=== PATIENT | male | born 1935 | race Hispanic/Latino ===

== ENCOUNTER 2017-07-12 10:40 | Observation (INO) | payer MEDICARE ==
[2017-07-12 10:55] VITALS: BMI 26.4
--- NOTE | 2017-07-12 11:23 | ED PDOC ---
Arrival/HPI - General Historian: Patient - History of Present Illness Symptom Onset: Gradual Symptom Course: Worsening <Eduar Ch - Last Filed: 07/12/17 11:29> <Kendra Boswell - Last Filed: 07/12/17 12:10> - General Time Seen by Provider: 07/12/17 10:59 - History of Present Illness Narrative History of Present Illness (Text): 07/12/17 11:19 This is a 80 year old male with PMHx Mitral and Aortic valve replacement, NC, CAD s/p CABG, HTN, DM, CHF, s/p AICD presenting to the ED complaining of shortness of breath since yesterday. Patient complaining that "my lungs are filling with water." Patient unable to sleep last night. Lying down and moving exacerbates the dyspnea. Sitting up relieves it. Patient complains of dry cough associated. Patient presents sent in by his PMD Dr. Evita Montilla. Patient denies f /c, chest pain, palpitations, abdominal pain, dysuria. PMD: Dr. English Cardio: Dr. Jose 07/12/17 11:29 (Eduar Ch) Past Medical History - Infectious Disease Hx of Infectious Diseases: None - Tetanus Immunization Tetanus Immunization: Unknown - Cardiac Hx Coronary Artery Disease: Yes Hx NC: Yes Hx Hypertension: Yes Hx Peripheral Vascular Disease: Yes - Pulmonary Hx Bronchitis: Yes Hx Pneumonia: Yes Hx Sleep Apnea: Yes - Neurological Hx Paralysis: No - HEENT Hx HEENT Disorder: Yes (sinusitis, eyeglasses) - Renal Hx Kidney Stones: Yes - Endocrine/Metabolic Hx Diabetes Mellitus Type 2: Yes - Hematological/Oncological Hx Blood Transfusions: Yes Hx Blood Transfusion Reaction: No - Musculoskeletal/Rheumatological Hx Arthritis: Yes - Gastrointestinal Other/Comment: GI BLEED - Psychiatric Hx Emotional Abuse: No Hx Physical Abuse: No Hx Substance Use: No - Surgical History Hx Coronary Artery Bypass Graft: Yes (QUADRUPLE) - Anesthesia Hx Anesthesia Reactions: No - Suicidal Assessment Feels Threatened In Home Enviroment: No <Eduar Ch - Last Filed: 07/12/17 11:29> Family/Social History Smoking Status: Never Smoked Hx Alcohol Use: No Hx Substance Use: No <Eduar Ch - Last Filed: 07/12/17 11:29> Family/Social History: No Known Family HX <Kendra Boswell A - Last Filed: 07/12/17 12:10> Allergies/Home Meds <DimaEduar Osman - Last Filed: 07/12/17 11:29> <Kendra Boswell - Last Filed: 07/12/17 12:10> Allergies/Adverse Reactions: Allergies No Known Allergies Allergy (Verified 04/18/16 09:59) Home Medications: Home Meds Medication Instructions Recorded Confirmed Carvedilol [Coreg] 6.25 mg PO BID 10/12/15 07/29/16 Metformin HCl 850 mg PO DAILY 10/12/15 07/29/16 Diazepam [Diazepam] 5 mg PO HS PRN 03/21/16 07/29/16 Furosemide [Lasix] 40 mg PO DAILY PRN 07/10/16 07/29/16 Iron Sucrose [Venofer] 100 mg IV Q30D 07/10/16 07/29/16 Melatonin/Pyridoxine HCl (B6) 1 each PO HS 07/10/16 07/29/16 [Melatonin 10 mg Tablet] Review of Systems - Review of Systems Eyes: Normal ENT: Sore Throat Respiratory: SOB, Cough. absent: Sputum Cardiovascular: Orthopnea Gastrointestinal: Normal Musculoskeletal: Normal Skin: Normal Neurological: Normal Endocrine: Normal Hemo/Lymphatic: Normal Psychiatric: Normal <Eduar Ch Dawson - Last Filed: 07/12/17 11:29> Physical Exam Vital Signs Reviewed: Yes Temperature: Afebrile Blood Pressure: Normal Appearance: Positive for: Uncomfortable Mental Status: Positive for: Alert and Oriented X 3 - Systems Exam Head: Present: Atraumatic, Normocephalic Pupils: Present: PERRL Extroacular Muscles: Present: EOMI Conjunctiva: Present: Normal Mouth: Present: Moist Mucous Membranes Respiratory/Chest: Present: Rales Cardiovascular: Present: Normal S1, S2, Irregular Rhythm Abdomen: Present: Distention, Normal Bowel Sounds. No: Tenderness Lower Extremity: Present: Edema (pitting bilaterally) Neurological: Present: CN II-XII Intact Skin: Present: Dry Psychiatric: Present: Alert, Oriented x 3 <Eduar Ch Dawson - Last Filed: 07/12/17 11:29> Medical Decision Making <Eduar Ch Dawson - Last Filed: 07/12/17 11:29> <Kendra Boswell - Last Filed: 07/12/17 12:10> ED Course and Treatment: 07/12/17 11:27 CBC, CMP, BNP, Troponins, CXR, Lasix 40 mg IVP stat 07/12/17 11:28 (Eduar Ch) 07/12/17 11:59 Patient seen by resident and then evaluated by me. Patient on home O2 and reports worsening shortness of breath. Denies chest pain. Physical exam shows rales b/l and b/l lower extremity edema, with worsening hypoxia. EKG shows paced rhythm at 70bpm. Cxray and bnp also consistent with chf. Trop x 1 negative. Labs consistent with known anemia that patient has previously signed out AMA before GI evaluation. Patient given lasix 80mg IV with some improvement. Will transfer to tele observation under Dr. Gamez for chf exacerbation. Spoke to Dr. Gamez who will place further orders 07/12/17 12:05 (Kendra Boswell) - Lab Interpretations Lab Results: 07/12/17 11:04 07/12/17 11:04 Lab Results 07/12/17 11:04: Sodium 141, Potassium 5.0, Chloride 92 L, Carbon Dioxide 40 H, Anion Gap 14, BUN 32 H, Creatinine 1.0, Est GFR ( Amer) > 60, Est GFR ( Non-Af Amer) > 60, Random Glucose 145 H, Calcium 9.1, Total Bilirubin 0.7, AST 29, ALT 27, Alkaline Phosphatase 270 H, Total Creatine Kinase 25 L, Troponin I 0.02, NT-Pro-B Natriuret Pep 4460 H, Total Protein 7.9, Albumin 4.1, Globulin 3.9, Albumin/Globulin Ratio 1.1 07/12/17 11:04: WBC 6.3 D, RBC 2.93 L, Hgb 8.8 L, Hct 28.7 L, MCV 98.0, MCH 30.0, MCHC 30.7 L, RDW 16.4 H, Plt Count 191, MPV 10.7, Gran % 81.8 H, Lymph % ( Auto) 9.1 L, Fallon % (Auto) 7.6 H, Eos % (Auto) 1.3 L, Baso % (Auto) 0.2, Gran # 5.19, Lymph # 0.6 L, Fallon # 0.5, Eos # 0.1, Baso # 0.01 - RAD Interpretation Radiology Orders: 07/12/17 11:12 CHEST PORTABLE [RAD] Stat - Medication Orders Current Medication Orders: Discontinued Medications Aspirin (Aspirin Chewable) 324 mg PO STAT STA Stop: 07/12/17 11:34 Last Admin: 07/12/17 12:07 Dose: 324 mg Furosemide (Lasix) 40 mg IVP STAT STA Stop: 07/12/17 11:14 Last Admin: 07/12/17 11:24 Dose: 40 mg Furosemide (Lasix) 40 mg IVP STAT STA Stop: 07/12/17 11:59 Last Admin: 07/12/17 12:07 Dose: 40 mg Disposition/Present on Arrival - Present on Arrival History of DVT/PE: No History of Uncontrolled Diabetes: No Urinary Catheter: No History Surgical Site Infection Following: None <Eduar Ch - Last Filed: 07/12/17 11:29> - Present on Arrival Any Indicators Present on Arrival: No - Disposition Have Diagnosis and Disposition been Completed?: Yes Disposition Time: 12:01 Patient Plan: Observation <Kendra Boswell - Last Filed: 07/12/17 12:10> - Disposition Diagnosis: Congestive heart failure (CHF) Disposition: HOSPITALIZED Patient Problems: Current Active Problems Problem Status Onset Congestive heart failure (CHF) Acute Condition: FAIR Discharge Instructions (ExitCare): Heart Failure (ED) Referrals: Juanito Sky, [Primary Care Provider] - Follow up with primary
[2017-07-12 11:29] LABS: BASO # 0.01 K/mm3 (0.0-2.0); BASO % 0.2 % (0.0-3.0); EOS # 0.1 (0.0-0.7); EOS % 1.3 % (1.5-5.0); GRAN # 5.19 (1.4-6.5); GRAN % 81.8 % (50.0-68.0); HEMATOCRIT 28.7 % (42.0-52.0); LYMPH # 0.6 (1.2-3.4); LYMPH % 9.1 % (22.0-35.0); MEAN CORPUSCULAR HGB CONC 30.7 g/dl (31.0-37.0); MEAN PLATELET VOLUME 10.7 fl (7.0-11.0); MONO # 0.5 (0.1-0.6); MONO % 7.6 % (1.0-6.0); RED CELL DISTRIBUTION WIDTH 16.4 % (11.5-14.5); WHITE BLOOD COUNT 6.3 10^3/ul (4.5-11.0)
[2017-07-12 11:38] LABS: ALB/GLOB RATIO 1.1 (1.1-1.8); ALKALINE PHOSPHATASE 270 U/L (38-133); ALT/SGPT 27 U/L (7-56); AST/SGOT 29 U/L (15-59); BILIRUBIN,TOTAL 0.7 mg/dL (0.2-1.3); BLOOD UREA NITROGEN 32 mg/dL (7-21); CALCIUM 9.1 mg/dL (8.4-10.5); CARBON DIOXIDE 40 mmol/L (21-33); CHLORIDE 92 mmol/L (98-107); GFR AFRICAN-AMERICAN > 60; GLUCOSE,RANDOM 145 mg/dL (70-110); SODIUM 141 mmol/L (132-148); TOTAL PROTEIN 7.9 g/dL (5.8-8.3)
[2017-07-12 11:50] LABS: TROPONIN I 0.02 ng/mL
[2017-07-12] MEDS ORDERED: Albuterol-Ipratrop 3 mg / 0.5 (3 ml) UD IH PRN (12:09)
--- NOTE | 2017-07-12 12:23 | RAD ---
HISTORY: shortness of breath COMPARISON: 05/16/2016 FINDINGS: LUNGS: There is vascular congestion and bilateral infiltrates consistent with CHF. Findings are unchanged PLEURA: No significant pleural effusion identified, no pneumothorax apparent. CARDIOVASCULAR: Moderate cardiomegaly OSSEOUS STRUCTURES: No significant abnormalities. VISUALIZED UPPER ABDOMEN: Normal. OTHER FINDINGS: Pacemaker IMPRESSION: Moderate cardiomegaly. Vascular congestion and bilateral infiltrates consistent with CHF
--- NOTE | 2017-07-12 12:54 | CARD ---
APPROVED REPORT EKG Measurement Heart [id number] <Conclusion> Electronic ventricular pacemaker
[2017-07-12 12:55] VITALS: O2SAT 95
[2017-07-12] MEDS ORDERED: POLYETHYLENE GLYCOL 3350 17 GM/Dose PACKET PO ONE (15:28)
[2017-07-12 17:01] VITALS: PULSE 70
[2017-07-12] MEDS ORDERED: Pneumococcal 23-Valent Vaccine IM ONE (17:01)
[2017-07-12] MEDS ORDERED: metOLazone 5 MG TAB PO STA (17:32)
[2017-07-12 18:52] VITALS: RESP 19
--- NOTE | 2017-07-12 23:39 | CP.PCM.PN ---
Subjective - Date & Time of Evaluation Date of Evaluation: 07/12/17 Time of Evaluation: 23:36 - Subjective Subjective: Patient was seen at bedside. He wanted to sign out AMA. He said that he [place] [facility] physician sent him to [place], so he is very upset. Then , he said his lungs are filled with water and wants something for that and wants something for sleep. He received 80 mg of Lasix in the ER and 40 mg of Lasix on the floor. Patient has no other complaints. I spoke to his who tried to convince him on phone. Medical record was reviewed. This 81 year old white male was admitted with sob on exertion of several days duration/CHF. Has PMH of DM II,CHF, HTN, CAD, S/P CABG, ischemic CMP, iron deficiency anemia, S/P ME, S/P AICD, S/P AVR, S/P MVR, Objective - Vital Signs/Intake and Output Vital Signs (last 24 hours): Temp Pulse Resp BP Pulse Ox 99.4 F 70 19 112/55 L 95 07/12/17 18:00 07/12/17 22:00 07/12/17 18:00 07/12/17 21:10 07/12/17 12:40 - Medications Medications: Current Medications Albuterol/Ipratropium (Duoneb 3 Mg/0.5 Mg (3 Ml) Ud) 3 ml IH Q4H PRN PRN Reason: Shortness of Breath Aspirin (Aspirin Chewable) 81 mg PO DAILY [facility] Atorvastatin Calcium (Lipitor) 20 mg PO DIN [facility] Carvedilol (Coreg) 6.25 mg PO BID [facility] Last Admin: 07/12/17 18:26 Dose: 6.25 mg Diazepam (Valium) 5 mg PO HS [facility] PRN Reason: Protocol Last Admin: 07/12/17 22:04 Dose: 5 mg Furosemide (Lasix) 40 mg IVP Q12 [facility] Last Admin: 07/12/17 21:10 Dose: 40 mg Metformin HCl (Glucophage) 500 mg PO BID [facility] Last Admin: 07/12/17 18:26 Dose: 500 mg - Labs Labs: Laboratory Last Values WBC 7.5 10^3/ul (4.5-11.0) 07/13/17 06:30 RBC 2.87 10^6/uL (3.5-6.1) L 07/13/17 06:30 Hgb 8.4 g/dL (14.0-18.0) L 07/13/17 06:30 Hct 27.7 % (42.0-52.0) L 07/13/17 06:30 MCV 96.5 fl (80.0-105.0) 07/13/17 06:30 MCH 29.3 pg (25.0-35.0) 07/13/17 06:30 MCHC 30.3 g/dl (31.0-37.0) L 07/13/17 06:30 RDW 16.6 % (11.5-14.5) H 07/13/17 06:30 Plt Count 143 10^3/uL (120.0-450.0) 07/13/17 06:30 MPV 9.7 fl (7.0-11.0) 07/13/17 06:30 Gran % 84.8 % (50.0-68.0) H 07/13/17 06:30 Lymph % (Auto) 7.4 % (22.0-35.0) L 07/13/17 06:30 Todd % (Auto) 7.4 % (1.0-6.0) H 07/13/17 06:30 Eos % (Auto) 0.3 % (1.5-5.0) L 07/13/17 06:30 Baso % (Auto) 0.1 % (0.0-3.0) 07/13/17 06:30 Gran # 6.32 (1.4-6.5) 07/13/17 06:30 Lymph # 0.6 (1.2-3.4) L 07/13/17 06:30 Todd # 0.6 (0.1-0.6) 07/13/17 06:30 Eos # 0.0 (0.0-0.7) 07/13/17 06:30 Baso # 0.01 K/mm3 (0.0-2.0) 07/13/17 06:30 Sodium 141 mmol/L (132-148) 07/13/17 06:30 Potassium 4.2 mmol/L (3.6-5.0) 07/13/17 06:30 Chloride 88 mmol/L (98-107) L 07/13/17 06:30 Carbon Dioxide 43 mmol/L (21-33) H 07/13/17 06:30 Anion Gap 14 (10-20) 07/13/17 06:30 BUN 33 mg/dL (7-21) H 07/13/17 06:30 Creatinine 1.0 mg/dL (0.5-1.4) 07/13/17 06:30 Est GFR ( Amer) > 60 07/13/17 06:30 Est GFR (Non-Af Amer) > 60 07/13/17 06:30 POC Glucose (mg/dL) 154 mg/dL (65-110) H 07/13/17 07:46 Random Glucose 141 mg/dL (70-110) H 07/13/17 06:30 Calcium 8.8 mg/dL (8.4-10.5) 07/13/17 06:30 Total Bilirubin 1.0 mg/dL (0.2-1.3) 07/13/17 06:30 AST 33 U/L (15-59) 07/13/17 06:30 ALT 26 U/L (7-56) 07/13/17 06:30 Alkaline Phosphatase 239 U/L (38-133) H 07/13/17 06:30 Total Creatine Kinase 25 U/L (35-230) L 07/12/17 11:04 Troponin I 0.04 ng/mL D 07/13/17 06:30 NT-Pro-B Natriuret Pep 4460 pg/mL (0-450) H 07/12/17 11:04 Total Protein 7.4 g/dL (5.8-8.3) 07/13/17 06:30 Albumin 3.7 g/dL (3.0-4.8) 07/13/17 06:30 Globulin 3.8 gm/dL 07/13/17 06:30 Albumin/Globulin Ratio 1.0 (1.1-1.8) L 07/13/17 06:30 Triglycerides 92 mg/dL (35-160) 07/13/17 06:30 Cholesterol 99 mg/dL (130-200) L 07/13/17 06:30 LDL Cholesterol Direct < 30 mg/dL (0-129) 07/13/17 06:30 HDL Cholesterol 32 mg/dL (29-60) 07/13/17 06:30 TSH 3rd Generation 1.53 mIU/mL (0.46-4.68) 07/13/17 06:30 - Constitutional Appears: Well, No Acute Distress - Head Exam Head Exam: ATRAUMATIC, NORMAL INSPECTION, NORMOCEPHALIC - Eye Exam Eye Exam: Normal appearance - ENT Exam ENT Exam: Normal External Ear Exam - Neck Exam Neck Exam: Normal Inspection - Respiratory Exam Respiratory Exam: Rales (Ocassional bilateral.) - Cardiovascular Exam Cardiovascular Exam: absent: JVD - GI/Abdominal Exam GI & Abdominal Exam: absent: Distended - Rectal Exam Rectal Exam: Deferred - Exam Additional comments: Deferred. - Extremities Exam Extremities Exam: Normal Inspection - Back Exam Back Exam: NORMAL INSPECTION - Neurological Exam Neurological Exam: Alert, Oriented x3 - Psychiatric Exam Psychiatric exam: Normal Affect, Normal Mood - Skin Skin Exam: Normal Color Assessment and Plan - Assessment and Plan (Free Text) Assessment: Non complaint. CHF. HTN. CMP. Hx ME. CAD. DM II. S/P AICD. S/P AVR. S/P MVR. S/P CABG. Iron deficiency anemia. Plan: Patient agreed to stay. Lasix 20 mg. IV stat. Xanax 0.5 mg PO stat. Continue present management.
[2017-07-13 00:53] VITALS: TEMP 99.6
[2017-07-13] MEDS ORDERED: DiphenhydrAMINE 12.5 mg/5 ml LIQ UD (5 ml) PO STA (01:14)
--- NOTE | 2017-07-13 05:01 | CON ---
DATE: 07/12/2017 LOCATION: Patient in room 276, bed 2. REASON FOR CONSULTATION: Shortness of breath, history of coronary artery disease, history of valve replacement. HISTORY OF PRESENT ILLNESS: Patient is an 81-year-old male known case of coronary artery disease status post CABG also known to have aortic valve replacement, tissue valve, pericardial valve, and ring placement on the mitral valve and also found to have ischemic cardiomyopathy, for which he has AICD insertion, history of diabetes mellitus, hypertension, sleep apnea, admitted with seizures since last 2 to 3 days, he is having shortness of breath, which got worse and last night he could not sleep at all, he has to be upright all night and also he noticed his legs were swollen. Denies any chest pain or palpitation. PAST MEDICAL HISTORY: Positive for coronary artery disease, CABG, valve surgery as mentioned above, AICD insertion, arthritis, sleep apnea, anemia and hydrocele surgery. PREVIOUS CARDIAC WORKUP; Stress Test : Fixed Defect LV Ej.Fr: 51%. ECHO: : Normal LV Size. LV Systolic Functiob Decreased. EF 51%. Mod AI, Mod TR. RVSP:114mm Hg Suggest Severe Pulmonary Hypertension. Normal Size RV. Septal morion Paradoxical.Cannot see RV Systolic Function. FAMILY HISTORY: Father at age 51 due to colon cancer, diabetes mellitus and hypertension. Family history positive. Patient follows with gastroenterology Dr. Horowitz. PERSONAL HISTORY: He used to smoke cigars, stopped now. Denies drinking. ALLERGIES: NO KNOWN ALLERGIES. MEDICATIONS AT HOME: Included metformin 850 p.o. daily, Venofer 100 mg IV once a month, Lasix 40 mg p.o. once a day p.r.n., diazepam 5 mg p.o. at bedtime p.r.n., Coreg 6.25 b.i.d. and lisinopril 10 m daily. REVIEW OF SYSTEMS: All the systems reviewed, positive mentioned in history and others are negative. PHYSICAL EXAMINATION: VITAL SIGNS: Blood pressure 116/61, respirations 20, pulse 70, and temperature 97.8. HEENT: Head is normocephalic. Eyes: Pupils normal and conjunctivae pale. NECK: JVP elevated. LUNGS: Bilateral rales. CARDIOVASCULAR: S1 and S2. Systolic murmur. No rub. ABDOMEN: Soft. No tenderness. No organomegaly. EXTREMITIES: 3+ edema bilateral. LABORATORY DATA: WBC 6.3, hemoglobin 8.8, hematocrit 28.7, and platelet 191. Sodium 141, potassium 5.0, BUN 32, creatinine 1.0. Random sugar 179, another sugar level is 145, alkaline phosphatase 270, AST and ALT normal. Troponin 0.02, which is negative. NT-pro-B natriuretic peptide 4460. Total protein and albumin normal. EKG showed pacemaker rhythm. Chest x-ray showed cardiomegaly, congestive changes. DIAGNOSES: Ischemic cardiomyopathy, congestive heart failure, acute on chronic left ventricular systolic failure, coronary artery disease status post coronary artery bypass graft, status post tissue valve replacement, aortic valve, pericardial valve, history of placement of rings on mitral valve, hypertension, diabetes mellitus, arthritis, sleep apnea and anemia. PLAN: Patient on Lasix 40 mg IV b.i.d. We will also give one dose of Zaroxolyn 5 mg p.o. today, aspirin 81 mg daily, carvedilol 6.25 b.i.d., metformin 500 mg .b.i.d., Valium 5 mg p.o. p.r.n. at bedtime. We will also add lisinopril 2.5 mg p.o. daily. We will monitor intake and output and we will follow with you. Tara Jose MD MTDBerny
[2017-07-13 07:26] LABS: BASO # 0.01 K/mm3 (0.0-2.0); BASO % 0.1 % (0.0-3.0); EOS % 0.3 % (1.5-5.0); GRAN # 6.32 (1.4-6.5); GRAN % 84.8 % (50.0-68.0); HEMATOCRIT 27.7 % (42.0-52.0); LYMPH # 0.6 (1.2-3.4); LYMPH % 7.4 % (22.0-35.0); MEAN CELL VOLUME 96.5 fl (80.0-105.0); MEAN CORPUSCULAR HEMOGLOBIN 29.3 pg (25.0-35.0); MEAN CORPUSCULAR HGB CONC 30.3 g/dl (31.0-37.0); MEAN PLATELET VOLUME 9.7 fl (7.0-11.0); MONO # 0.6 (0.1-0.6); MONO % 7.4 % (1.0-6.0); RED CELL DISTRIBUTION WIDTH 16.6 % (11.5-14.5); WHITE BLOOD COUNT 7.5 10^3/ul (4.5-11.0)
[2017-07-13 07:39] LABS: ALKALINE PHOSPHATASE 239 U/L (38-133); ALT/SGPT 26 U/L (7-56); AST/SGOT 33 U/L (15-59); BLOOD UREA NITROGEN 33 mg/dL (7-21); CALCIUM 8.8 mg/dL (8.4-10.5); CHLORIDE 88 mmol/L (98-107); CHOLESTEROL 99 mg/dL (130-200); GFR AFRICAN-AMERICAN > 60; GLUCOSE,RANDOM 141 mg/dL (70-110); POTASSIUM 4.2 mmol/L (3.6-5.0); SODIUM 141 mmol/L (132-148); TOTAL PROTEIN 7.4 g/dL (5.8-8.3)
[2017-07-13 07:46] LABS: CARBON DIOXIDE 43 mmol/L (21-33)
[2017-07-13 07:49] LABS: TROPONIN I 0.04 ng/mL
--- NOTE | 2017-07-13 08:51 | HP ---
HISTORY OF PRESENT ILLNESS: The patient is an 81-year-old man with past medical history of CAD s/p CABG x 2, ischemic cardiomyopathy s/p IL s/p AICD, history of MVR and AVR, hypertension, type 2 diabetes mellitus and iron deficiency anemia on monthly intravenous iron infusions who presented to [facility] Emergency Department from his PMD's office for evaluation of a several day history of worsening dyspnea with exertion, orthopnea, lower extremity edema and cough productive of scant, clear sputum. The patient states that he was in his usual state of health until his onset symptoms several days ago which initially manifested as dyspnea with exertion. Over the course of the next several days his symptoms progressed to consist of dyspnea at rest, 3-pillow orthopnea and lower extremity edema. He denied chest pain, palpitations, fevers, chills, rigors, melena, hematochezia or bright red blood per rectum associated with his symptoms. Upon examination at his PMD's office he was noted to be tachypneic and in moderate respiratory distress utilizing accessory muscles of respiration. Examination also disclosed diffuse rhonchi and bibasilar crackles and as such the patient was advised to go to [facility] ED for further evaluation. Upon arrival to the ED he was noted to be afebrile and hemodynamically stable but was tachypneic with a respiratory rate of 24 and hypoxic with an oxygen saturation of 89% on 3 L nasal cannula. Laboratory studies which were obtained demonstrated a hemoglobin of 8.8 (baseline 8-9) and a markedly elevated BNP of 4460. A chest x -ray demonstrated bilateral pulmonary venous congestion in a CHF pattern. The patient received Lasix 80 mg intravenously and was admitted to the telemetry gonzales for continued management of acute on chronic systolic heart failure exacerbation. PAST MEDICAL HISTORY: As per HPI, also obstructive sleep apnea. PAST SURGICAL HISTORY: As per HPI. FAMILY HISTORY: Significant for hypertension, diabetes and colon caner in his father. MEDICATIONS: Coreg 6.25 mg p.o. b.i.d., Lisinopril 10 mg p.o. daily, Lasix 40 mg p.o. b.i.d., Aldactone 25 mg p.o. daily, Lipitor 20 p.o. daily, Pepcid 20 mg p.o. b.i.d., Metformin 500 mg p.o. b.i.d., Valium 5 mg p.o. at bedtime and Venofer infusions monthly ALLERGIES: NKDA. SOCIAL HISTORY: The patient reports a former 30-pack year tobacco history but quit several years ago. He reports social alcohol use. He denies illicit drug abuse. REVIEW OF SYSTEMS: A 14-point review of systems is negative as per HPI. PHYSICAL EXAMINATION: VITAL SIGNS: Temperature 99.4, pulse 70, blood pressure 145/62, respiratory rate 20, and oxygen saturation 92% on 3 L nasal cannula. GENERAL: Frail, elderly man appearing stated age in moderate respiratory distress. HEENT: PERRL. EOMI. No scleral icterus. Conjunctival pallor is noted. NECK: No JVD. No bruits. LUNGS: Bibasilar crackles with scattered rhonchi and accessory muscle use is noted. CARDIOVASCULAR: RRR, Grade II/ systolic ejection murmur to RUSB, Grade II/ murmur to LLSB, AICD to left anterior chest wall. ABDOMEN: Normoactive bowel sounds. Soft, nontender, and nondistended. EXTREMITIES: 2+ lower extremity edema bilaterally to knees NEUROLOGIC: Awake, alert and oriented x3. No focal motor deficits. LABORATORY DATA: WBC is 6.3 with 82% neutrophils, hemoglobin is 8.8, hematocrit 29, and platelets 191. Sodium 141, potassium 5, chloride 92, bicarbonate 40, BUN 32, creatinine 1, and glucose 145. Troponin less than 0.02. BNP 4460. IMAGING STUDIES: Chest x-ray demonstrated moderate cardiomegaly with vascular congestion and bilateral infiltrates consistent with CHF. ASSESSMENT: The patient is an 81-year-old man with multiple medical comorbidities including CAD s/p CABG x 2, ischemic cardiomyopathy s/p AICD, history of AVR, MVR, hypertension, NIDDM, and iron deficiency anemia on monthly iron infusions who presented to the ED from his PMD's office for evaluation of increasing fatigability, decreased exercise tolerance, dyspnea and 3-pillow orthopnea and subsequently admitted to the telemetry gonzales for continued management of acute on chronic systolic heart failure exacerbation. PLAN: 1. Acute on chronic systolic heart failure exacerbation. The patient is s/p Lasix 80mg IV x 1 in the ED. We will continue Lasix 40mg IV Q12. Dr. Jose of cardiology has been consulted for further evaluation and recommendations. Will cycle cardiac enzymes, check TSH, monitor strict I/Os and daily weights. We will defer pursuit of repeat TTE to the cardiology team. 2. Ischemic cardiomyopathy s/p AICD. Continue with Coreg 6.25 mg p.o. b.i.d and Lisinopril 2.5 mg p.o. daily 3. CAD s/p IL s/p PCI with multiple stent placement s/p CABG x 2. Continue with Coreg 6.25 mg p.o. b.i.d., aspirin 81 mg p.o. daily and Lipitor 20 mg p.o. daily. 4. Non-insulin dependent diabetes mellitus. Continue with metformin 500 mg p.o. b.i.d. 5. Hypertension. Blood pressure stable. Continue with current antihypertensives. 6. Iron deficiency anemia. The patient remains on monthly IV iron and labs demonstrate hemoglobin at the patient's baseline. Continue to monitor CBC daily. 7. Insomnia. Continue with Valium 5 mg p.o. at bedtime. 8. Prophylaxis. GI prophylaxis, not indicated the patient is eating. Continue with Venodyne for DVT prophylaxis. CODE STATUS: FULL CODE. Ronnie Gamez MD MTDD
[2017-07-13 10:23] VITALS: BP 116/55
--- NOTE | 2017-07-13 10:23 | PN ---
DATE: SUBJECTIVE: The patient was seen and examined at bedside on the telemetry gonzales. No acute events overnight. He remains afebrile and hemodynamically stable. The patient reports significant diuresis since admission and administration of intravenous Lasix. The patient also reports resolution of his respiratory distress and states that he feels at his baseline respiratory status. Otherwise, he continues to deny chest pain, fevers, chills or rigors. OBJECTIVE: VITAL SIGNS: Temperature 99.6, pulse 70, blood pressure 124/59, respiratory rate 19, and oxygen saturation 95% on room air. GENERAL: Frail elderly man appearing his stated age, lying in bed, in no apparent distress. HEENT: PERRL. EOMI. No scleral icterus. Mild conjunctival pallor is noted. NECK: No JVD. LUNGS: Bibasilar crackles. CARDIOVASCULAR: Regular rate and rhythm. Grade II/ systolic ejection murmur to right upper sternal border. Grade II/ murmur to left lower sternal border. AICD in place to left anterior chest wall. ABDOMEN: Normoactive bowel sounds, soft, nontender, and nondistended. EXTREMITIES: Trace lower extremity edema bilaterally to mid dowd. NEUROLOGIC: Awake, alert, and oriented x3. No focal motor deficits. LABORATORY DATA: WBC 7.5 with 85% neutrophils, hemoglobin 8.4, hematocrit 28 and platelets 143. Sodium 141, potassium 4.2, chloride 88, and bicarb 43. BUN 33, creatinine 1, and glucose 141. Troponin unremarkable x2 sets. 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 PLAN: 1. Pxwnc-xr-qzpboys systolic heart failure exacerbation, resolving, input from Dr. Jose noted and greatly appreciated. The patient is diuresed significantly since admission and this morning, he reports being at his baseline. Continue with Lasix 40 mg IV q. 12 hours. Continue supplemental oxygen of bronchodilators as needed. 2. Ischemic cardiomyopathy status post AICD. Continue with Coreg 6.25 mg p.o. b.i.d. and lisinopril 2.5 mg p.o. daily and Lasix 40 mg IV q. 12 hours. 3. CAD, status post IL, status post CABG. Continue with Lipitor 20 mg p.o. daily and aspirin 81 mg p.o. daily. 4. Quq-dpzekzo-pgkhuscak diabetes mellitus. Continue with metformin 500 mg p.o. b.i.d. 5. Hypertension. Blood pressure control. Continue with current antihypertensives. 6. Insomnia. Continue with valium 5 mg p.o. at bedtime. 7. Iron deficiency anemia. Lab demonstrates stable H and H at patient's baseline. The patient will resume monthly Venofer infusions upon discharge. 8. Prophylaxis. Continue with Protonix and Venodyne. CODE STATUS: FULL CODE. Ronnie Gamez MD
[2017-07-13] MEDS ORDERED: Enoxaparin 40 mg Syringe SC SCH (11:00)
--- NOTE | 2017-07-13 13:59 | PN ---
DATE: REASON FOR CONSULTATION: Cardiac evaluation, shortness of breath, history of valve replacement, history of CABG. SUBJECTIVE: The patient denies any chest pain. Lying flat in the bed. The patient feels okay. OBJECTIVE: GENERAL: Not in apparent distress. Lying flat in the bed. VITAL SIGNS: Temperature is afebrile, heart rate 70, blood pressure 116/55. HEENT: PERRLA intact. NECK: Supple. No carotid bruit. No thyromegaly. CHEST: Clear to auscultation. HEART: S1 and S2 regular. ABDOMEN: Soft. EXTREMITIES: Clubbing and cyanosis negative. LABORATORY DATA: WBC 7.5, hemoglobin 8.5, hematocrit 27.7, platelet count 173. Chemistry shows sodium 141, potassium 4.1, chloride 88, carbon dioxide 43, anion gap of 14, BUN 33, creatinine 1.0. Troponin 0.04. IMPRESSION: An 81-year-old male with past medical history significant for coronary artery disease status post coronary artery bypass graft with valve replaced, history of ischemic cardiomyopathy, status post automatic implantable cardioverter defibrillator, sleep apnea, obesity, history of anemia. Admitted with decompensated congestive heart failure, history of automatic implantable cardioverter defibrillator in the past, history of diabetes, hypertension. RECOMMENDATION: Continue IV Lasix. Zaroxolyn added yesterday by Dr. Jose. The patient having diuresis. Continue Coreg, continue lisinopril. Monitor renal function. Monitor electrolytes. Continue Coreg. Continue atorvastatin and we will add low dose lisinopril as blood pressure already monitored, renal function. If remain stable, discharge to telemetry tomorrow. We will add DVT prophylaxis. We will repeat blood work up in the morning. Tara Leach MD
[2017-07-13] MEDS ORDERED: MELATONIN PO SCH (22:00)
[2017-07-13] MEDS ORDERED: [UNRECOGNIZED DRUG - OTHER] PO SCH (22:00)
[2017-07-13] MEDS ORDERED: PYRIDOXINE HCL PO SCH (22:00)
--- NOTE | 2017-07-21 12:45 | DS ---
ADMITTING DIAGNOSIS: Acute on chronic systolic heart failure exacerbation. DISCHARGE DIAGNOSIS: Acute on chronic systolic heart failure exacerbation. SECONDARY DIAGNOSES: Ischemic cardiomyopathy, status post automatic implantable cardioverter-defibrillator, coronary artery disease, status post myocardial infarction, status post percutaneous coronary intervention with multiple stent placement, status post coronary artery bypass graft x2, noninsulin dependent diabetes mellitus, hypertension, iron deficiency anemia, insomnia, chronic obstructive pulmonary disease, history of mitral valve replacement, and history of aortic valve replacement. CONSULTATIONS: Tara Jose MD (Cardiology) IMAGINING STUDY: Chest x-ray, which demonstrated pulmonary venous congestion in a CHF pattern. HISTORY OF PRESENT ILLNESS: The patient is an 81-year-old male with the past medical history of CAD, status post CABG x2, ischemic cardiomyopathy, status post MN, status post AICD, history of MVR and AVR, hypertension, type 2 diabetes mellitus, and iron deficiency anemia on monthly intervenous iron infusions, who presented to [facility] emergency department from his PMD's office for evaluation of several day history of worsening dyspnea with exertion, orthopnea, lower extremity edema, and cough productive of scant clear sputum. The patient states that he was in his usual states of health until onset of his symptoms several days ago, which initial manifested his dyspnea with exertion, over the course of next couple of days, his symptoms progressed to consistent with dyspnea at rest, 3-pillow orthopnea, and lower extremity edema. He denied chest pain, palpitations, fevers, chills, rigors, melena, hematochezia, or bright red blood per rectum associated with the symptoms. Upon examination in his PMD's office, he was noted to be tachypneic and in moderate respiratory distress utilizing accessory muscle of respiration. Examination also disclosed diffuse rhonchi with bibasilar crackles and the patient was advised to go to the emergency department for further management of presumed heart failure exacerbation. Upon arrival to the ED, he was noted to be afebrile and hemodynamically stable, post-tachypneic with a respiratory rate of 24 and hypoxic with the oxygenation of 89% on 3 L nasal cannula. LABORATORY DATA: Obtained demonstrated hemoglobin of 8.8 (baseline 8 to 9) and markedly elevated BNP of 4416. A chest x-ray demonstrated bilateral pulmonary venous congestion in a CHF pattern. The patient received Lasix 80 mg intravenously and was admitted to the telemetry gonzales for continued management of acute on chronic systolic heart failure exacerbation. HOSPITAL COURSE: Upon admission to the telemetry gonzales, the patient was maintained on Lasix 40 mg IV q.[address] Jose of Cardiology was consulted for further evaluation and recommendation. Cardiac enzymes were cyclized by 3 sets, which were negative. With the following 24 hours, the patient was noted to diurese satisfactorily and returned to his baseline functional status. He was able to ambulate around the telemetry gonzales with minimal dyspnea and at this point in time, he was deemed stable for discharge to home. CONDITION: Fair, improved. DISPOSITION: To home. DISCHARGE MEDICATIONS: Coreg 6.25 mg p.o. b.i.d., lisinopril 10 mg p.o. daily, Lasix 40 mg p.o. b.i.d., Aldactone 25 mg p.o. daily, Lipitor 20 mg daily, Pepcid 20 mg p.o. b.i.d., metformin 500 mg p.o. b.i.d., valium 5 mg p.o. at bedtime, and Venofer infusions monthly. DISCHARGE INSTRUCTIONS: The patient was advised to if he has any recurrence of his symptoms to present to his PMD or to the nearest emergency department immediately. FOLLOWUP: The patient to follow up with his PMD within 1 week of discharge. The patient to follow up with his clinical trial head as scheduled. The patient to follow up with his dry cleaning manager and oncologist as scheduled. Ronnie Gamez MD
== END 2017-07-13 11:27 | disposition home or self-care (01) ==
LOC: ED 10:40 → ERH 12:01 → 2RSO 13:18
PROVIDERS: ADMIT Student in an Organized Health Care Education/Training Program; ATTEND Student in an Organized Health Care Education/Training Program
DX: I11.0 Hypertensive heart disease with heart failure (principal); I50.23 Acute on chronic systolic (congestive) heart failure; I25.5 Ischemic cardiomyopathy; I25.10 Atherosclerotic heart disease of native coronary artery without angina pectoris; E11.9 Type 2 diabetes mellitus without complications; G47.33 Obstructive sleep apnea (adult) (pediatric); M19.90 Unspecified osteoarthritis, unspecified site; D50.9 Iron deficiency anemia, unspecified; G47.00 Insomnia, unspecified; I25.2 Old myocardial infarction; Z79.84 Long term (current) use of oral hypoglycemic drugs; Z95.2 Presence of prosthetic heart valve; Z95.1 Presence of aortocoronary bypass graft; Z95.5 Presence of coronary angioplasty implant and graft; Z87.891 Personal history of nicotine dependence; Z95.810 Presence of automatic (implantable) cardiac defibrillator
CPT/HCPCS: 36415; 71010; 80053; 80061; 82550; 82948; 83880; 84443; 84484; 85025; 93005; 96374; 96376; 99285; G0378; J1940

== ENCOUNTER 2017-08-04 22:23 | Inpatient (IN) | payer MEDICARE ==
--- NOTE | 2017-08-04 22:43 | ED PDOC ---
Arrival/HPI - General Chief Complaint: Abdominal Pain Time Seen by Provider: 08/04/17 22:29 Historian: Patient, Family - History of Present Illness Narrative History of Present Illness (Text): 08/04/17 22:43 Alex Rutledge is an 81 year old male, whose past medical history includes CAD s /p CABG, CHF, [place], AICD, MVR, AVR, hypertension, Type 2 diabetes, anemia, and GI bleed, who presents to the ED complaining of generalized weakness. Family reports patient has been experiencing generalized weakness, dizziness, and dyspnea on exertion throughout the day. Patient also complaining of worsening bilateral lower extremity swelling. Patient states he "doesn't feel like himself." Patient denies any chest pain, abdominal pain, nausea, vomiting, diarrhea, back pain, neck pain, headache, dizziness, or any other complaints. PMD: Dr. Kate Gamez Time/Duration: Other (today) Symptom Onset: Gradual Symptom Course: Unchanged Activities at Onset: Light Context: Home Past Medical History - Provider Review Nursing Documentation Reviewed: Yes - Infectious Disease Hx of Infectious Diseases: None - Tetanus Immunization Tetanus Immunization: Unknown - Cardiac Hx Cardiac Disorders: (mi) Hx Congestive Heart Failure: Yes Hx Hypertension: Yes Hx Internal Defibrillator: Yes (2011) Hx Pacemaker: Yes (2011) Hx Peripheral Edema: Yes (+2 pitting bld) Hx Peripheral Vascular Disease: Yes Other/Comment: mitral valve repair, quadruple bypass at [facility] - Pulmonary Hx Bronchitis: Yes Hx Pneumonia: Yes Hx Sleep Apnea: Yes (cpap at home) - Neurological Hx Neurological Disorder: No - HEENT Hx HEENT Disorder: Yes (sinusitis, eyeglasses) - Renal Hx Kidney Stones: Yes - Endocrine/Metabolic Hx Diabetes Mellitus Type 2: Yes - Hematological/Oncological Hx Anemia: Yes (iron deficiency, tx by dr clemens) Other/Comment: venofer iv, pt denies blood transfusions - Integumentary Other/Comment: b/l arms skin discolorations - Musculoskeletal/Rheumatological Hx Falls: No - Gastrointestinal Other/Comment: GI BLEED - Psychiatric Hx Emotional Abuse: No Hx Physical Abuse: No Hx Substance Use: No - Surgical History Hx Coronary Artery Bypass Graft: Yes (QUADRUPLE) - Anesthesia Hx Anesthesia Reactions: No - Suicidal Assessment Feels Threatened In Home Enviroment: No Family/Social History - Physician Review Nursing Documentation Reviewed: Yes Family/Social History: Unknown Family HX Smoking Status: cigars Hx Alcohol Use: No Hx Substance Use: No Allergies/Home Meds Allergies/Adverse Reactions: Allergies No Known Allergies Allergy (Verified 04/18/16 09:59) Home Medications: Home Meds Medication Instructions Recorded Confirmed Carvedilol [Coreg] 6.25 mg PO BID 10/12/15 08/04/17 Metformin HCl 850 mg PO DAILY 10/12/15 08/04/17 Diazepam [Diazepam] 5 mg PO HS PRN 03/21/16 08/04/17 Furosemide [Lasix] 40 mg PO DAILY PRN 07/10/16 08/04/17 Iron Sucrose [Venofer] 100 mg IV Q30D 07/10/16 08/04/17 Melatonin/Pyridoxine HCl (B6) 1 each PO HS 07/10/16 08/04/17 [Melatonin 10 mg Tablet] metOLazone [Zaroxolyn] 2.5 mg PO DAILY 08/04/17 08/04/17 Review of Systems - Physician Review All systems were reviewed & negative as marked: Yes - Review of Systems Constitutional: Other (+generalized weakness) Eyes: Normal ENT: Normal Cardiovascular: ANAYA. absent: Chest Pain Gastrointestinal: Normal. absent: Abdominal Pain, Diarrhea, Nausea, Vomiting Genitourinary Male: Normal. absent: Dysuria, Frequency, Hematuria, Urinary Output Changes Musculoskeletal: Other (+bilateral lower extremity swelling). absent: Back Pain , Neck Pain Skin: Normal. absent: Rash Neurological: Normal. absent: Headache, Dizziness Endocrine: Normal Hemo/Lymphatic: Normal Psychiatric: Normal Physical Exam Vital Signs Reviewed: Yes Vital Signs Temp Pulse Resp BP Pulse Ox 08/05/17 05:44 70 18 99/42 L 99 08/05/17 04:45 72 16 94/46 L 99 08/05/17 03:50 76 119/89 08/05/17 02:25 98.2 F 70 18 104/62 92 L 08/05/17 02:22 70 18 104/62 94 L 08/05/17 01:50 70 18 95/48 L 94 L 08/05/17 01:40 73 22 108/40 L 92 L 08/05/17 01:39 110/70 08/04/17 22:27 98.1 F 70 22 104/56 L 73 L 08/04/17 22:25 80 22 104/55 L 88 L Temperature: Afebrile Blood Pressure: Normal Pulse: Regular Respiratory Rate: Normal Appearance: Positive for: Well-Appearing, Non-Toxic, Comfortable Pain Distress: None Mental Status: Positive for: Alert and Oriented X 3 - Systems Exam Head: Present: Atraumatic, Normocephalic Pupils: Present: PERRL Extroacular Muscles: Present: EOMI Conjunctiva: Present: Normal Mouth: Present: Moist Mucous Membranes Neck: Present: Normal Range of Motion Respiratory/Chest: Present: Rhonchi (Few scattered rhonchi). No: Respiratory Distress, Accessory Muscle Use Cardiovascular: Present: Regular Rate and Rhythm, Normal S1, S2. No: Murmurs Abdomen: Present: Normal Bowel Sounds. No: Tenderness, Distention, Peritoneal Signs Back: Present: Normal Inspection Upper Extremity: Present: Normal Inspection. No: Cyanosis, Edema Lower Extremity: Present: Edema (1+ pedal edema) Neurological: Present: GCS=15, CN II-XII Intact, Speech Normal Skin: Present: Warm, Dry, Normal Color. No: Rashes Psychiatric: Present: Alert, Oriented x 3, Normal Insight, Normal Concentration Medical Decision Making ED Course and Treatment: 08/04/17 22:43 Impression: 81 year old male c/o generalized weakness, dizziness, dyspnea on exertion, and worsening bilateral lower extremity swelling today. Plan: -- EKG -- CXR -- Labs, cardiac enzymes, BNP -- Reassess and disposition Progress Notes: reviewed EKG, 100% paced rhythm at 70 bpm. 08/04/17 22:33 Labs reviewed. Potassium: 5.7, troponin: 0.18, creatinine: 3.4, and BUN: 82. Kayexalate ordered 08/05/17 01:54 reviewed radiology, CXR shows left large pleural effusion. Case discussed with Dr. Delmar Mcqueen, orange picker, who is aware and agrees with plan. 08/05/17 01:[address] Gamez, who is aware and agrees with plan. Accepts pt in to his service. Requests Dr. Jose and Dr. Nath on consult. Call placed to Dr. Nath's service. 08/05/17 02:05 Case discussed with medical education manager textile conservator, Dr. Trevino, made aware of admission. 08/05/17 02:[address] Leach, pile fabric knitter, who is aware and agrees with plan. Agrees with Milrinone drip and 50ccs/hour of IV fluids. Spoke with Dr. Delmar Mcqueen, present in ED to evaluate pt. Pt admitted to ICU for CHF and renal failure. - Critical Care Critical Care Minutes: 30 minutes - Lab Interpretations Lab Results: 08/04/17 22:39 08/04/17 22:39 Lab Results 08/05/17 02:20: pCO2 55 H, pO2 64.0 L, HCO3 48.1 H*, ABG pH 7.55 H, ABG Total CO2 49.8 H, ABG O2 Saturation 96.5, ABG O2 Content 11.1 L, ABG Base Excess 23.2 H, ABG Hemoglobin 8.4 L, ABG Carboxyhemoglobin 2.8 H, POC ABG HHb (Measured) 3.4 , ABG Methemoglobin 0.5, ABG O2 Capacity 11.5 L, Hgb O2 Saturation 93.3 L, FiO2 32.0 08/05/17 01:13: pO2 44, VBG pH 7.47 H, VBG pCO2 68.0 H*, VBG HCO3 49.5 H, VBG Total CO2 51.6 H, VBG O2 Sat (Calc) 84.6 H, VBG Base Excess 21.5 H, VBG Potassium 5.8 H, Glucose 130 H, Lactate 2.1, FiO2 21.0, Sodium 136.0, Chloride 90.0 L, Venous Blood Potassium 5.8 H 08/04/17 22:39: WBC 5.3 D, RBC 2.84 L, Hgb 8.4 L, Hct 27.7 L, MCV 97.5, MCH 29.6, MCHC 30.3 L, RDW 18.8 H, Plt Count 165, MPV 11.4 H 08/04/17 22:39: Sodium 136, Potassium 5.7 H* D, Chloride 82 L, Carbon Dioxide 41 H, Anion Gap 20, BUN 82 H, Creatinine 3.4 H, Est GFR ( Amer) 21, Est GFR (Non-Af Amer) 18, Random Glucose 157 H, Calcium 8.1 L, Total Bilirubin 0.5, AST 40, ALT 32, Alkaline Phosphatase 293 H, Lactate Dehydrogenase 401, Total Creatine Kinase < 20 L, Troponin I 0.18 H* D, NT-Pro-B Natriuret Pep 6780 H, Total Protein 7.3, Albumin 3.6, Globulin 3.7, Albumin/Globulin Ratio 1.0 L 08/04/17 22:39: PT 12.0 H, INR 1.11 H, APTT 30.7 I have reviewed the lab results: Yes - RAD Interpretation Radiology Orders: 08/04/17 22:51 CHEST PORTABLE [RAD] Stat Authors Motivational: ED Physician - EKG Interpretation Interpreted by ED Physician: Yes Type: 12 lead EKG - Medication Orders Current Medication Orders: Carvedilol (Coreg) 6.25 mg PO BID CLARA Diazepam (Valium) 5 mg PO HS PRN; Protocol PRN Reason: Insomnia Last Admin: 08/05/17 04:29 Dose: 5 mg Heparin Sodium (Porcine) (Heparin) 5,000 units SC Q12 CLARA PRN Reason: Protocol Milrinone Lactate/Dextrose (Primacor 20mg/100ml D5w) 100 mls @ 4.736 mls/hr IV .Q21H7M PRN; Protocol; 0.2 MCG/KG/MIN PRN Reason: TITRATE PER MD ORDER Last Admin: 08/05/17 03:50 Dose: 0.2 mcg/kg/min, 4.736 mls/hr eMAR Start Stop Document 08/05/17 03:50 [email or web address] (Rec: 08/05/17 03:[address] [id number]) Intravenous Solution Start Date 08/05/17 Start Time 03:50 MAR Pulse and Blood Pressure Document 08/05/17 03:50 [email or web address] (Rec: 08/05/17 03:[address] [id number]) Pulse Pulse Rate (60-90) 76 Blood Pressure Blood Pressure (100/60-150/90) 119/89 Titration Intervention Document 08/05/17 03:50 [email or web address] (Rec: 08/05/17 03:[address] [id number]) Titration Intake Waste Amount 0 Container Volume 100 Titration Dosing Titration Dose 0.2 IV Rate 4.736 Intake/Decrease Started Sodium Chloride (Sodium Chloride 0.9%) 1,000 mls @ 50 mls/hr IV .Q20H CLARA Last Admin: 08/05/17 03:51 Dose: 50 mls/hr eMAR Start Stop Document 08/05/17 03:51 [email or web address] (Rec: 08/05/17 03:[address] [id number]) Intravenous Solution Start Date 08/05/17 Start Time 03:51 Insulin Human Lispro (Humalog Low) 0 units SC ACHS CLARA PRN Reason: Protocol Pantoprazole Sodium (Protonix Ec Tab) 40 mg PO 0600 CLARA Discontinued Medications Albuterol Sulfate (Albuterol 0.083% Inhal Giselle (2.5 Mg/3 Ml) Ud) 10 mg IH STAT STA Stop: 08/04/17 23:36 Last Admin: 08/05/17 01:38 Dose: Not Given Non-Admin Reason: Patient Refused Furosemide (Lasix) 40 mg IVP STAT STA Stop: 08/05/17 01:10 Last Admin: 08/05/17 01:39 Dose: 40 mg MAR Blood Pressure Document 08/05/17 01:39 [email or web address] (Rec: 08/05/17 01:[address] [id number]) Blood Pressure Blood Pressure (100/60-150/90) 110/70 IVP Administration Document 08/05/17 01:39 [email or web address] (Rec: 08/05/17 01:[address] [id number]) Charges for Administration # of IVP Administrations 1 Morphine Sulfate (Morphine) 2 mg IVP STAT STA Stop: 08/05/17 02:12 Last Admin: 08/05/17 02:23 Dose: 2 mg [facility] Pain Assessment Document 08/05/17 02:23 CAST (Rec: 08/05/17 02:[address] [id number]) Pain Reassessment Is this a pain reassessment? No Sleep Is patient sleeping during reassessment? No Presence of Pain Presence of Pain Yes Pain Scale Used Pain Scale Used Numeric Location Pain Location Body Site Abdomen Description Description Constant Intensity of Pain at present 8 Pain Behavior Facial Grimacing Aggravating Factors Changing Position Alleviating Factors/Management Position Change Techniques Alleviating Factors Medication IVP Administration Document 08/05/17 02:23 [email or web address] (Rec: 08/05/17 02:[address] [id number]) Charges for Administration # of IVP Administrations 1 Re-Assess: MAR Pain Assessment Document 08/05/17 03:23 SC (Rec: 08/05/17 05:49 [place] [facility] [id number] Pain Reassessment Is this a pain reassessment? Yes Sleep Is patient sleeping during reassessment? No Presence of Pain Presence of Pain No Sodium Polystyrene Sulfonate (Kayexalate Oral Susp) 30 gm PO ONCE ONE Stop: 08/04/17 23:34 Last Admin: 08/05/17 00:23 Dose: 30 gm - Scribe Statement The provider has reviewed the documentation as recorded by the Patoibjuani Villeda All medical record entries made by the Patoibjuani were at my direction and personally dictated by me. I have reviewed the chart and agree that the record accurately reflects my personal performance of the history, physical exam, medical decision making, and the department course for this patient. I have also personally directed, reviewed, and agree with the discharge instructions and disposition. Disposition/Present on Arrival - Present on Arrival Any Indicators Present on Arrival: No History of DVT/PE: No History of Uncontrolled Diabetes: No Urinary Catheter: No History of Decub. Ulcer: No History Surgical Site Infection Following: None - Disposition Have Diagnosis and Disposition been Completed?: Yes Diagnosis: Congestive heart failure (CHF), Renal failure Disposition: HOSPITALIZED Disposition Time: 02:45 Patient Plan: Admission Patient Problems: Current Active Problems Problem Status Onset Congestive heart failure (CHF) Acute Renal failure Acute Condition: STABLE
[2017-08-04 23:09] LABS: HEMATOCRIT 27.7 % (42.0-52.0); MEAN CELL VOLUME 97.5 fl (80.0-105.0); MEAN CORPUSCULAR HEMOGLOBIN 29.6 pg (25.0-35.0); MEAN CORPUSCULAR HGB CONC 30.3 g/dl (31.0-37.0); MEAN PLATELET VOLUME 11.4 fl (7.0-11.0); RED CELL DISTRIBUTION WIDTH 18.8 % (11.5-14.5); WHITE BLOOD COUNT 5.3 10^3/ul (4.5-11.0)
[2017-08-04 23:15] LABS: ALKALINE PHOSPHATASE 293 U/L (38-126); ALT/SGPT 32 U/L (7-56); AST/SGOT 40 U/L (17-59); BILIRUBIN,TOTAL 0.5 mg/dL (0.2-1.3); BLOOD UREA NITROGEN 82 mg/dL (7-21); CALCIUM 8.1 mg/dL (8.4-10.5); CHLORIDE 82 mmol/L (98-107); GFR AFRICAN-AMERICAN 21; GLUCOSE,RANDOM 157 mg/dL (70-110); SODIUM 136 mmol/L (132-148); TOTAL PROTEIN 7.3 g/dL (5.8-8.3)
[2017-08-04 23:18] LABS: POTASSIUM 5.7 mmol/L (3.6-5.0)
[2017-08-04 23:19] LABS: INR 1.11 (0.93-1.08); PARTIAL THROMBOPLASTIN TIME 30.7 Seconds (23.7-30.8)
[2017-08-04 23:22] LABS: CARBON DIOXIDE 41 mmol/L (21-33)
[2017-08-04 23:28] LABS: TROPONIN I 0.18 ng/mL
[2017-08-04] MEDS ORDERED: Sod Polystyrene Sulf 15 gm/60 ml Oral Susp PO ONE (23:33)
[2017-08-05] MEDS: Albuterol 0.083% Inhal Sol (2.5 mg/3 mL) UD IH STA ×2 (00:23→01:38)
[2017-08-05 01:37] LABS: VENOUS BLOOD GAS BASE EXCESS 21.5 mmol/L (0.0-2.0); VENOUS BLOOD PH 7.47 (7.32-7.43)
[2017-08-05] MEDS ORDERED: Morphine 2 mg/ml ISec IVP STA (02:11)
[2017-08-05 02:26] LABS: ARTERIAL BLOOD GAS O2 CAPACITY 11.5 mL/dl (16-24); ARTERIAL BLOOD GAS O2 CONTENT 11.1 ML/dl (15-23); ARTERIAL BLOOD GAS PH 7.55 (7.35-7.45); ARTERIAL BLOOD HGB O2 SAT 93.3 % (95.0-98.0); CARBOXYHEMOGLOBIN 2.8 % (0.5-1.5); HHB 3.4 % (0-5); METHEMOGLOBIN 0.5 % (0.0-3.0)
[2017-08-05 02:57] LABS: ARTERIAL BLOOD GAS HCO3 48.1 mmol/L (21-28)
[2017-08-05] MEDS ORDERED: Sodium Chloride 0.9% 1,000 ML IV SCH (03:00)
[2017-08-05] MEDS: Milrinone 20mg/100ml D5W 100 ML IV PRN ×2 (03:50→18:23)
--- NOTE | 2017-08-05 03:53 | CP.PCM.CON ---
<Randolph Mcmillan - Last Filed: 08/05/17 19:59> History of Present Illness - History of Present Illness History of Present Illness: 81 year old male with PMH of CAD s/p CABG, CHF, OR, AICD, MVR, AVR, hypertension , Type 2 diabetes, anemia, and GI bleed, who presents complaining of generalized weakness. Family reports the patient has been experiencing generalized weakness, dizziness, and dyspnea on exertion throughout the day. Patient also complaining of worsening bilateral lower extremity swelling. Patient states he "doesn't feel like himself." Patient denies CP, abdominal pain , nausea, vomiting, diarrhea, back pain, neck pain, headache, dizziness, or any other complaints. PMH: CAD s/p CABG, CHF, OR, AICD, MVR, AVR, hypertension, Type 2 diabetes, anemia, and GI bleed PSH: CABG Allergies: NKDA Social: uses cigars, denies alcohol and illicit drug use Medications: Metolozone, coreg, metformin, Diazepam, Furosemide Review of Systems - Constitutional Constitutional: absent: Chills - Cardiovascular Cardiovascular: Dyspnea. absent: Chest Pain - Respiratory Respiratory: Dyspnea - Musculoskeletal Musculoskeletal: absent: Numbness, Stiffness - Neurological Neurological: Dizziness Past Patient History - Infectious Disease Hx of Infectious Diseases: None - Tetanus Immunizations Tetanus Immunization: Unknown - Past Social History Smoking Status: cigars - CARDIAC Hx Cardiac Disorders: (mi) Hx Congestive Heart Failure: Yes Hx Hypertension: Yes Hx Internal Defibrillator: Yes (2011) Hx Pacemaker: Yes (2011) Hx Peripheral Edema: Yes (+2 pitting bld) Hx Peripheral Vascular Disease: Yes Other/Comment: mitral valve repair, quadruple bypass at [facility] - PULMONARY Hx Bronchitis: Yes Hx Pneumonia: Yes Hx Sleep Apnea: Yes (cpap at home) - NEUROLOGICAL Hx Neurological Disorder: No - HEENT Hx HEENT Problems: Yes (sinusitis, eyeglasses) - RENAL Hx Kidney Stones: Yes - ENDOCRINE/METABOLIC Hx Diabetes Mellitus Type 2: Yes - HEMATOLOGICAL/ONCOLOGICAL Hx Anemia: Yes (iron deficiency, tx by dr clemens) Other/Comment: venofer iv, pt denies blood transfusions - INTEGUMENTARY Other/Comment: b/l arms skin discolorations - MUSCULOSKELETAL/RHEUMATOLOGICAL Hx Falls: No - GASTROINTESTINAL Other/Comment: GI BLEED - PSYCHIATRIC Hx Emotional Abuse: No Hx Physical Abuse: No Hx Substance Use: No - SURGICAL HISTORY Hx Coronary Artery Bypass Graft: Yes (QUADRUPLE) - ANESTHESIA Hx Anesthesia Reactions: No Meds Allergies/Adverse Reactions: Allergies Allergy/AdvReac Type Severity Reaction Status Date / Time No Known Allergies Allergy Verified 08/05/17 14:08 - Medications Medications: Current Medications Milrinone Lactate/Dextrose (Primacor 20mg/100ml D5w) 100 mls @ 4.736 mls/hr IV .Q21H7M PRN; Protocol; 0.2 MCG/KG/MIN PRN Reason: TITRATE PER MD ORDER Sodium Chloride (Sodium Chloride 0.9%) 1,000 mls @ 50 mls/hr IV .Q20H CLARA Physical Exam - Constitutional Appears: In Acute Distress Additional comments: patient appears to be uncomfortable - Head Exam Head Exam: ATRAUMATIC, NORMAL INSPECTION, NORMOCEPHALIC - Eye Exam Eye Exam: Normal appearance - Respiratory Exam Additional comments: Decreased breath sounds in lower lung, rales - Cardiovascular Exam Cardiovascular Exam: REGULAR RHYTHM, +S1, +S2 - GI/Abdominal Exam GI & Abdominal Exam: Distended - Extremities Exam Extremities exam: Positive for: pedal edema Additional comments: 1+ pedal edema - Neurological Exam Neurological exam: Alert, Oriented x3 Results - Vital Signs Recent Vital Signs: Last Vital Signs Temp 98.2 F 08/05/17 02:25 Pulse 70 08/05/17 02:25 Resp 18 08/05/17 02:25 BP 104/62 08/05/17 02:25 Pulse Ox 92 L 08/05/17 02:25 - Labs Result Diagrams: 08/05/17 05:25 08/04/17 22:39 Assessment & Plan - Assessment and Plan (Free Text) Assessment: 81 year old male with PMH of CAD s/p CABG, CHF, OR, AICD, MVR, AVR, hypertension , Type 2 diabetes, anemia, and GI bleed, who presents complaining of generalized weakness and SOB. He is being admitted to the ICU for CHF and Renal Failure. Plan: Neuro: -Patient is AAOx3, speaking coherently - continue to monitor, maintain euthermia Cardiovascular -HR: 76 BP: 119/89 - History of CHF (EF 30% from December 2015) - EKG shows 100% paced rhythm at 70, pending official read -Repeat EKG series -Initial Trop .18, recheck series trops - Cardiology Consulted (Hany) and started on Milrinone -ECHO ordered -Continue home coreg Pulmonary -Oxygen saturation is 92% on nasal canula -patient breathing at a rate of 18 - HC03:48.1 pH: 7.55 p02: 64 -Chest x-ray: CXR shows left pleural effusion, pending official review -Case discussed with Dr. Gamez Renal - Kidney Failure -BUN: 82 Cr: 3.4 Cl: 82 - K was 5.7, kayexalate given, continue to monitor -NS@50 -[facility] Infectious Disease - Max temp: 98.2 -WBC: 5.3, patient currently afebrile Hematology -Hgb: 8.4 Hct: 27.7 Platelets: 165 PT: 12 INR: 1.11 -monitor Hgb GI -AST: 40 ALT: 32 Endocrine: -Blood Sugar is 157 -hold oral hypoglycemic -Sliding Scale Insulin with ACHS GI/DVT Prophylaxis Patient seen and discussed with the attending <George Mcqueen N - Last Filed: 08/10/17 03:36> Meds - Medications Medications: Current Medications Aspirin (Ecotrin) 81 mg PO DAILY [facility] Last Admin: 08/09/17 12:10 Dose: 81 mg Atorvastatin Calcium (Lipitor) 20 mg PO DIN [facility] Last Admin: 08/09/17 17:53 Dose: 20 mg Benzonatate (Tessalon Perles) 100 mg PO Q6 PRN PRN Reason: Cough Last Admin: 08/08/17 10:05 Dose: 100 mg Budesonide (Pulmicort Respules) 0.5 mg IH [id number] [facility] Last Admin: 08/09/17 20:03 Dose: 0.5 mg Carvedilol (Coreg) 12.5 mg PO BID [facility] Last Admin: 08/09/17 17:55 Dose: 12.5 mg Diazepam (Valium) 5 mg PO HS PRN; Protocol PRN Reason: Insomnia Last Admin: 08/08/17 19:54 Dose: 5 mg Furosemide (Lasix) 40 mg PO BID [facility] Last Admin: 08/09/17 17:53 Dose: 40 mg Heparin Sodium (Porcine) (Heparin) 5,000 units SC Q12 CLARA PRN Reason: Protocol Last Admin: 08/09/17 21:04 Dose: 5,000 units Milrinone Lactate/Dextrose (Primacor 20mg/100ml D5w) 100 mls @ 4.736 mls/hr IV .Q21H7M PRN; Protocol; 0.2 MCG/KG/MIN PRN Reason: TITRATE PER MD ORDER Last Admin: 08/09/17 20:27 Dose: 0.2 mcg/kg/min, 4.736 mls/hr Insulin Human Lispro (Humalog Low) 0 units SC ACHS CLARA PRN Reason: Protocol Last Admin: 08/09/17 22:15 Dose: Not Given Levalbuterol HCl (Xopenex) 0.63 mg IH [id number] CLARA Last Admin: 08/10/17 02:24 Dose: 0.63 mg Levalbuterol HCl (Xopenex) 0.63 mg IH Q2 PRN PRN Reason: Shortness of Breath Last Admin: 08/08/17 18:13 Dose: 0.63 mg Lorazepam (Ativan) 0.5 mg IVP TID PRN; Protocol PRN Reason: agitation/anxiety Last Admin: 08/09/17 20:28 Dose: 0.5 mg Pantoprazole Sodium (Protonix Ec Tab) 40 mg PO 0600 CLARA Last Admin: 08/09/17 06:00 Dose: 40 mg Potassium Chloride (K-Dur 20 Meq Er Tab) 20 meq PO BID [facility] Last Admin: 08/09/17 17:55 Dose: 20 meq Quetiapine Fumarate (Seroquel) 25 mg PO HS CLARA PRN Reason: Protocol Last Admin: 08/09/17 21:06 Dose: Not Given Results - Vital Signs Recent Vital Signs: Last Vital Signs Temp 98 F 08/10/17 00:01 Pulse 74 08/10/17 02:27 Resp 20 08/10/17 00:01 BP 117/56 L 08/10/17 00:01 Pulse Ox 97 08/10/17 00:01 - Labs Result Diagrams: 08/09/17 05:30 08/09/17 05:30 Labs: Laboratory Results - last 24 hr 08/05/17 08/07/17 08/09/17 20:25 05:00 05:30 WBC RBC Hgb Hct MCV MCH MCHC RDW Plt Count MPV Gran % Lymph % (Auto) Lee % (Auto) Eos % (Auto) Baso % (Auto) Gran # Lymph # Lee # Eos # Baso # pCO2 pO2 HCO3 ABG pH ABG Total CO2 ABG O2 Saturation ABG O2 Content ABG Base Excess ABG Hemoglobin ABG Carboxyhemoglobin POC ABG HHb (Measured) ABG Methemoglobin ABG O2 Capacity Hgb O2 Saturation FiO2 Sodium 144 Potassium 3.7 Chloride 88 L Carbon Dioxide 50 H Anion Gap 10 BUN 57 H Creatinine 1.2 Est GFR ( Amer) > 60 Est GFR (Non-Af Amer) 58 POC Glucose (mg/dL) Random Glucose 108 Calcium 8.9 Phosphorus 3.1 Magnesium 1.7 Total Bilirubin 1.1 AST 40 ALT 28 Alkaline Phosphatase 248 H Lactate Dehydrogenase 431 Total Creatine Kinase 30 L Troponin I 0.08 Total Protein 7.2 Albumin 3.4 Globulin 3.8 Albumin/Globulin Ratio 0.9 L PTH Intact Whole Molec 222 H 127 H Stool Occult Blood 08/09/17 08/09/17 08/09/17 05:30 05:45 07:25 WBC 3.9 L RBC 3.06 L Hgb 9.1 L Hct 29.4 L MCV 96.1 MCH 29.7 MCHC 31.0 RDW 17.9 H Plt Count 134 MPV 10.2 Gran % 77.7 H Lymph % (Auto) 11.1 L Lee % (Auto) 9.6 H Eos % (Auto) 1.3 L Baso % (Auto) 0.3 Gran # 3.01 Lymph # 0.4 L Lee # 0.4 Eos # 0.1 Baso # 0.01 pCO2 67 H pO2 69.0 L HCO3 52.2 H* ABG pH 7.50 H ABG Total CO2 54.3 H ABG O2 Saturation 97.3 ABG O2 Content 12.2 L ABG Base Excess 25.7 H ABG Hemoglobin 9.2 L ABG Carboxyhemoglobin 3.0 H POC ABG HHb (Measured) 2.6 ABG Methemoglobin 1.0 ABG O2 Capacity 12.5 L Hgb O2 Saturation 93.5 L FiO2 32.0 Sodium Potassium Chloride Carbon Dioxide Anion Gap BUN Creatinine Est GFR ( Amer) Est GFR (Non-Af Amer) POC Glucose (mg/dL) 127 H Random Glucose Calcium Phosphorus Magnesium Total Bilirubin AST ALT Alkaline Phosphatase Lactate Dehydrogenase Total Creatine Kinase Troponin I Total Protein Albumin Globulin Albumin/Globulin Ratio PTH Intact Whole Molec Stool Occult Blood 08/09/17 08/09/17 08/09/17 08:00 11:03 16:49 WBC RBC Hgb Hct MCV MCH MCHC RDW Plt Count MPV Gran % Lymph % (Auto) Lee % (Auto) Eos % (Auto) Baso % (Auto) Gran # Lymph # Lee # Eos # Baso # pCO2 pO2 HCO3 ABG pH ABG Total CO2 ABG O2 Saturation ABG O2 Content ABG Base Excess ABG Hemoglobin ABG Carboxyhemoglobin POC ABG HHb (Measured) ABG Methemoglobin ABG O2 Capacity Hgb O2 Saturation FiO2 Sodium Potassium Chloride Carbon Dioxide Anion Gap BUN Creatinine Est GFR ( Amer) Est GFR (Non-Af Amer) POC Glucose (mg/dL) 128 H 130 H Random Glucose Calcium Phosphorus Magnesium Total Bilirubin AST ALT Alkaline Phosphatase Lactate Dehydrogenase Total Creatine Kinase Troponin I Total Protein Albumin Globulin Albumin/Globulin Ratio PTH Intact Whole Molec Stool Occult Blood Positive H 08/09/17 21:47 WBC RBC Hgb Hct MCV MCH MCHC RDW Plt Count MPV Gran % Lymph % (Auto) Lee % (Auto) Eos % (Auto) Baso % (Auto) Gran # Lymph # Lee # Eos # Baso # pCO2 pO2 HCO3 ABG pH ABG Total CO2 ABG O2 Saturation ABG O2 Content ABG Base Excess ABG Hemoglobin ABG Carboxyhemoglobin POC ABG HHb (Measured) ABG Methemoglobin ABG O2 Capacity Hgb O2 Saturation FiO2 Sodium Potassium Chloride Carbon Dioxide Anion Gap BUN Creatinine Est GFR ( Amer) Est GFR (Non-Af Amer) POC Glucose (mg/dL) 121 H Random Glucose Calcium Phosphorus Magnesium Total Bilirubin AST ALT Alkaline Phosphatase Lactate Dehydrogenase Total Creatine Kinase Troponin I Total Protein Albumin Globulin Albumin/Globulin Ratio PTH Intact Whole Molec Stool Occult Blood
[2017-08-05 05:41] LABS: BASO # 0.01 K/mm3 (0.0-2.0); BASO % 0.2 % (0.0-3.0); EOS % 0.7 % (1.5-5.0); GRAN # 4.33 (1.4-6.5); GRAN % 80.4 % (50.0-68.0); LYMPH # 0.5 (1.2-3.4); LYMPH % 9.1 % (22.0-35.0); MEAN CELL VOLUME 95.9 fl (80.0-105.0); MEAN CORPUSCULAR HEMOGLOBIN 29.7 pg (25.0-35.0); MEAN CORPUSCULAR HGB CONC 30.9 g/dl (31.0-37.0); MEAN PLATELET VOLUME 10.5 fl (7.0-11.0); MONO # 0.5 (0.1-0.6); MONO % 9.6 % (1.0-6.0); RED CELL DISTRIBUTION WIDTH 18.8 % (11.5-14.5); VENOUS BLOOD PH 7.43 (7.32-7.43); WHITE BLOOD COUNT 5.4 10^3/ul (4.5-11.0)
[2017-08-05 05:46] LABS: HEMATOCRIT 23.6 % (42.0-52.0)
[2017-08-05 05:50] LABS: CALCIUM 7.9 mg/dL (8.4-10.5); POTASSIUM 5.1 mmol/L (3.6-5.0)
[2017-08-05 06:43] LABS: TROPONIN I 0.19 ng/mL
[2017-08-05] MEDS: Pantoprazole 40 mg EC Tab PO SCH (06:47)
--- NOTE | 2017-08-05 08:28 | RAD ---
HISTORY: sob COMPARISON: Portable chest 07/04/2017. FINDINGS: Pacemaker/implanted defibrillator again identified in position. Sternotomy wires and prosthetic cardiac valve again evident. LUNGS: Cardiac silhouette is partially obscured by left-sided pulmonary opacity. Prominent pulmonary vascular pattern is appreciate compatible with likely worsened CHF. Left greater than right-sided underlying infiltrates are not excluded. PLEURA: A moderately large left pleural effusions identified increased in the interval with a borderline right pleural effusion present. No pneumothorax bilaterally. CARDIOVASCULAR: Cardiac silhouette is obscured by left pleural effusion. OSSEOUS STRUCTURES: No significant abnormalities. VISUALIZED UPPER ABDOMEN: Normal. OTHER FINDINGS: None. IMPRESSION: Pattern suggest worsening of active CHF with underlying atelectasis or infiltrates not extruded the left greater than right sides. Moderately large left pleural effusion noted, borderline at the right.
--- NOTE | 2017-08-05 10:29 | CP.CCUPN ---
<Maddie Hopper - Last Filed: 08/05/17 13:43> CCU Subjective - Physician Review Events Since Last Encounter (Free Text): 08/05/17 12:53 Admitted to unit over night Subjective (Free Text): 08/05/17 12:53 Critical care progress note for Dr. Dereck Hopper, PGY-1 Pt S & E at bedside. Pt reports improved since onset, stronger, SOB much improved. Denies N/V/F/C, CP, palpitations, other complaints. Critical Care Time Spent (in minutes): 35 CCU Objective - Vital Signs / Intake & Output Vital Signs (Last 4 hours): Vital Signs Temp Pulse Resp BP Pulse Ox 08/05/17 09:00 70 18 108/47 L 96 08/05/17 07:16 98.5 F 70 18 103/44 L 95 08/05/17 06:59 21 100/42 L 97 08/05/17 06:39 98.4 F Intake and Output (Last 8hrs): Intake & Output 08/04/17 08/05/17 08/05/17 22:59 06:59 14:59 Weight 83.4 kg - Physical Exam Head: Positive for: Atraumatic, Normocephalic Extroacular Muscles: Positive for: EOMI Conjunctiva: Positive for: Normal Mouth: Positive for: Moist Mucous Membranes Nose (External): Positive for: Atraumatic Neck: Positive for: Normal Range of Motion Respiratory/Chest: Positive for: Rhonchi (Few scattered rhonchi). Negative for : Clear to Auscultation, Good Air Exchange, Respiratory Distress, Accessory Muscle Use, Wheezes, Rales, Retracting, Tachypneic Cardiovascular: Positive for: Regular Rate and Rhythm, Normal S1, S2. Negative for: Murmurs Abdomen: Positive for: Normal Bowel Sounds. Negative for: Tenderness, Distention, Peritoneal Signs Genitourinary Male: Positive for: Other (Noel in place with dark yellow UOP) Back: Positive for: Normal Inspection Upper Extremity: Positive for: Normal Inspection. Negative for: Cyanosis, Edema Lower Extremity: Positive for: Edema (Scant pedal edema) Neurological: Positive for: GCS=15, CN II-XII Intact, Speech Normal Skin: Positive for: Warm, Dry, Normal Color. Negative for: Rashes Psychiatric: Positive for: Alert, Oriented x 3, Normal Insight, Normal Concentration - Medications Active Medications: Active Medications Generic Name Dose Route Start Last Admin Trade Name Freq PRN Reason Stop Dose Admin Budesonide 0.5 mg 08/05/17 20:00 Pulmicort Respules IH [id number] CLARA Carvedilol 6.25 mg 08/05/17 10:00 Coreg PO BID CLARA Diazepam 5 mg 08/05/17 04:07 08/05/17 04:29 Valium PO 5 mg HS PRN Administration Insomnia Protocol Heparin Sodium (Porcine) 5,000 units 08/05/17 10:00 Heparin SC Q12 CLARA Protocol Milrinone Lactate/Dextrose 100 mls @ 4.736 mls/hr 08/05/17 02:38 08/05/17 03: 50 Primacor 20mg/100ml D5w IV 0.2 mcg/kg/min .Q21H7M PRN 4.736 mls/hr TITRATE PER MD ORDER Administration Protocol 0.2 MCG/KG/MIN Sodium Chloride 1,000 mls @ 50 mls/hr 08/05/17 03:00 08/05/17 03:51 Sodium Chloride 0.9% IV 50 mls/hr .Q20H CLARA Administration Insulin Human Lispro 0 units 08/05/17 07:30 Humalog Low SC ACHS [facility] Protocol Levalbuterol HCl 0.63 mg 08/05/17 14:00 Xopenex IH [id number] CLARA Levalbuterol HCl 0.63 mg 08/05/17 10:21 Xopenex IH Q2 PRN Shortness of Breath Pantoprazole Sodium 40 mg 08/05/17 06:00 08/05/17 06:47 Protonix Ec Tab PO 40 mg 0600 [facility] Administration - Patient Studies Lab Studies: Lab Studies 08/05/17 08/05/17 08/05/17 Range/Units 08:18 07:14 05:25 WBC (4.5-11.0) 10^3/ul RBC (3.5-6.1) 10^6/uL Hgb (14.0-18.0) g/dL Hct (42.0-52.0) % MCV (80.0-105.0) fl MCH (25.0-35.0) pg MCHC (31.0-37.0) g/dl RDW (11.5-14.5) % Plt Count (120.0-450.0) 10^3/uL MPV (7.0-11.0) fl Gran % (50.0-68.0) % Lymph % (Auto) (22.0-35.0) % [place] % (Auto) (1.0-6.0) % Eos % (Auto) (1.5-5.0) % Baso % (Auto) (0.0-3.0) % Gran # (1.4-6.5) Lymph # (1.2-3.4) [place] # (0.1-0.6) Eos # (0.0-0.7) Baso # (0.0-2.0) K/mm3 pO2 74 H (30-55) mm/Hg VBG pH 7.43 (7.32-7.43) VBG pCO2 77.0 H* (40-60) VBG HCO3 51.1 H (21-28) mmol/l VBG Total CO2 53.5 H (22-28) mmol.L VBG O2 Sat (Calc) 97.7 H (40-65) % VBG Base Excess 22.0 H (0.0-2.0) mmol/L VBG Potassium 5.0 (3.6-5.2) mmol/L Sodium 135.0 (132-148) mmol/L Chloride 91.0 L (98-107) mmol/L Glucose 131 H (75-110) mg/dl Lactate 1.0 (0.7-2.1) mmol/L FiO2 21.0 % Potassium (3.6-5.0) mmol/L Carbon Dioxide (21-33) mmol/L Anion Gap (10-20) BUN (7-21) mg/dL Creatinine (0.5-1.4) mg/dL Est GFR ( Amer) Est GFR (Non-Af Amer) POC Glucose (mg/dL) 150 H (65-110) mg/dL Random Glucose (70-110) mg/dL Calcium (8.4-10.5) mg/dL Lactate Dehydrogenase (333-699) U/L Total Creatine Kinase (35-230) U/L Troponin I ng/mL Venous Blood Potassium 5.0 (3.6-5.2) mmol/L Blood Type O POSITIVE Antibody Screen Negative Crossmatch See Detail BBK History Checked Patient has bt 08/05/17 08/05/17 Range/Units 05:25 05:25 WBC 5.4 (4.5-11.0) 10^3/ul RBC 2.46 L (3.5-6.1) 10^6/uL Hgb 7.3 L (14.0-18.0) g/dL Hct 23.6 L (42.0-52.0) % MCV 95.9 (80.0-105.0) fl MCH 29.7 (25.0-35.0) pg MCHC 30.9 L (31.0-37.0) g/dl RDW 18.8 H (11.5-14.5) % Plt Count 139 (120.0-450.0) 10^3/uL MPV 10.5 (7.0-11.0) fl Gran % 80.4 H (50.0-68.0) % Lymph % (Auto) 9.1 L (22.0-35.0) % [place] % (Auto) 9.6 H (1.0-6.0) % Eos % (Auto) 0.7 L (1.5-5.0) % Baso % (Auto) 0.2 (0.0-3.0) % Gran # 4.33 (1.4-6.5) Lymph # 0.5 L (1.2-3.4) [place] # 0.5 (0.1-0.6) Eos # 0.0 (0.0-0.7) Baso # 0.01 (0.0-2.0) K/mm3 pO2 (30-55) mm/Hg VBG pH (7.32-7.43) VBG pCO2 (40-60) VBG HCO3 (21-28) mmol/l VBG Total CO2 (22-28) mmol.L VBG O2 Sat (Calc) (40-65) % VBG Base Excess (0.0-2.0) mmol/L VBG Potassium (3.6-5.2) mmol/L Sodium 139 (132-148) mmol/L Chloride 84 L (98-107) mmol/L Glucose (75-110) mg/dl Lactate (0.7-2.1) mmol/L FiO2 % Potassium 5.1 H (3.6-5.0) mmol/L Carbon Dioxide 43 H (21-33) mmol/L Anion Gap 17 (10-20) BUN 86 H (7-21) mg/dL Creatinine 3.2 H (0.5-1.4) mg/dL Est GFR ( Amer) 23 Est GFR (Non-Af Amer) 19 POC Glucose (mg/dL) (65-110) mg/dL Random Glucose 130 H (70-110) mg/dL Calcium 7.9 L (8.4-10.5) mg/dL Lactate Dehydrogenase 391 (333-699) U/L Total Creatine Kinase 20 L (35-230) U/L Troponin I 0.19 H* ng/mL Venous Blood Potassium (3.6-5.2) mmol/L Blood Type Antibody Screen Crossmatch BBK History Checked Laboratory Results - last 24 hr 08/05/17 08/05/17 08/05/17 05:25 05:25 05:25 WBC 5.4 RBC 2.46 L Hgb 7.3 L Hct 23.6 L MCV 95.9 MCH 29.7 MCHC 30.9 L RDW 18.8 H Plt Count 139 MPV 10.5 Gran % 80.4 H Lymph % (Auto) 9.1 L [place] % (Auto) 9.6 H Eos % (Auto) 0.7 L Baso % (Auto) 0.2 Gran # 4.33 Lymph # 0.5 L [place] # 0.5 Eos # 0.0 Baso # 0.01 pO2 74 H VBG pH 7.43 VBG pCO2 77.0 H* VBG HCO3 51.1 H VBG Total CO2 53.5 H VBG O2 Sat (Calc) 97.7 H VBG Base Excess 22.0 H VBG Potassium 5.0 Sodium 139 135.0 Chloride 84 L 91.0 L Glucose 131 H Lactate 1.0 FiO2 21.0 Potassium 5.1 H Carbon Dioxide 43 H Anion Gap 17 BUN 86 H Creatinine 3.2 H Est GFR ( Amer) 23 Est GFR (Non-Af Amer) 19 POC Glucose (mg/dL) Random Glucose 130 H Calcium 7.9 L Lactate Dehydrogenase 391 Total Creatine Kinase 20 L Troponin I 0.19 H* Venous Blood Potassium 5.0 Blood Type Antibody Screen Crossmatch BBK History Checked 08/05/17 08/05/17 07:14 08:18 WBC RBC Hgb Hct MCV MCH MCHC RDW Plt Count MPV Gran % Lymph % (Auto) [place] % (Auto) Eos % (Auto) Baso % (Auto) Gran # Lymph # [place] # Eos # Baso # pO2 VBG pH VBG pCO2 VBG HCO3 VBG Total CO2 VBG O2 Sat (Calc) VBG Base Excess VBG Potassium Sodium Chloride Glucose Lactate FiO2 Potassium Carbon Dioxide Anion Gap BUN Creatinine Est GFR ( Amer) Est GFR (Non-Af Amer) POC Glucose (mg/dL) 150 H Random Glucose Calcium Lactate Dehydrogenase Total Creatine Kinase Troponin I Venous Blood Potassium Blood Type O POSITIVE Antibody Screen Negative Crossmatch See Detail BBK History Checked Patient has bt EKG/Cardiology Studies: Cardiology / EKG Studies 08/05/17 05:00 EKG [ELECTROCARDIOGRAM] Q6H Comment: Reason For Exam: SOB Does Patient Have a Pacemaker?: Yes 08/05/17 06:30 ELECTROCARDIOGRAM DAILY Comment: Reason For Exam: cp 08/05/17 11:00 EKG [ELECTROCARDIOGRAM] Q6H Comment: Reason For Exam: SOB Does Patient Have a Pacemaker?: Yes Review of Systems - Review of Systems All systems: reviewed and no additional remarkable complaints except - Constitutional Constitutional: absent: Fever, Chills - Cardiovascular Cardiovascular: UNREMARKABLE. absent: Chest Pain - Respiratory Respiratory: UNREMARKABLE - Gastrointestinal Gastrointestinal: UNREMARKABLE ( ). absent: Abdominal Pain, Nausea, Vomiting Critical Care Progress Note - Nutrition Nutrition: Nutrition Category Date Time Status Heart Healthy Diet [DIET] Diets 08/05/17 Breakfast Ordered Assessment/Plan - Assessment and Plan (Free Text) Assessment: 81M w/Acute renal failure, CHF Plan: euro AOx3 Stable CVS CAD s/p CABG, CHF, TN, ACID, MVR, AVR, HTN CHF exacerbation Coreg Milrinone drip as per cardio FU lipid panel Trops FU TSH BNP 6780 FU Echo Daily wts Strict I/Os Cardio following Pulm Hx PUlmicort Xopenex FU CXR o2 via NC PRN Target SaO2 >88% Pulm following Nephro Acute renal failure BUN 86 from 82 Cr 3.2 from 3.4 Hyperkalemia - K 5.1 Kayexelate x 1 FU Urine lytes NS@50 FU renal U/S Urine osmolality 331 Random urine Na 87 Nephro following GI Diabetic diet Noel in place Strict I/O's Endo Hx DM FU A1c ISS Accuchecks Heme Hx Anemia Hgb 7.3 from 8.4 Hct 23.6 from 27.7 Transfused 1 unit pRBCs as per Heme Monitor Heme following ID Afebrile No leukocytosis Monitor MSK Consider PT/OT Monitor for skin break down GI/DVT ppx Heparin Protonix Dispo Monitor DW attending Ruchi, PGY-1 - Date & Time Date: 08/05/17 Time: 09:30 <Geraldo Mcqueen MD H - Last Filed: 08/05/17 16:30> CCU Objective - Vital Signs / Intake & Output Vital Signs (Last 4 hours): Vital Signs Temp Pulse Pulse Resp BP Pulse Ox 08/05/17 15:45 70 24 95/48 L 98 08/05/17 15:30 70 26 H 96/50 L 98 08/05/17 15:15 70 36 H 111/55 L 95 08/05/17 15:00 70 29 H 95/52 L 97 08/05/17 14:54 98.1 F 70 14 95/52 L 08/05/17 14:52 97.7 F 70 22 110/46 L 08/05/17 14:30 70 31 H 94 L 08/05/17 14:09 98.5 F 70 70 18 87/54 L 08/05/17 14:00 70 34 H 110/46 L 96 08/05/17 13:47 65 26 H 104/48 L 97 08/05/17 13:30 65 26 H 98 08/05/17 13:21 70 08/05/17 13:00 70 21 87/54 L 97 08/05/17 12:30 70 27 H 100 Intake and Output (Last 8hrs): Intake & Output 08/05/17 08/05/17 08/05/17 06:59 14:59 22:59 Intake Total 0 Balance 0 Weight 183 lb 13.848 oz 183 lb Intake: Blood Product 0 Red Blood Cells Cpd As1 0 Lr Unit [id number] Other: Voiding Method Toilet - Medications Active Medications: Active Medications Generic Name Dose Route Start Last Admin Trade Name Freq PRN Reason Stop Dose Admin Budesonide 0.5 mg 08/05/17 20:00 Pulmicort Respules IH [id number] CLARA Carvedilol 3.125 mg 08/05/17 10:56 Coreg PO BID CLARA Diazepam 5 mg 08/05/17 04:07 08/05/17 04:29 Valium PO 5 mg HS PRN Administration Insomnia Protocol Heparin Sodium (Porcine) 5,000 units 08/05/17 10:00 Heparin SC Q12 CLARA Protocol Milrinone Lactate/Dextrose 100 mls @ 4.736 mls/hr 08/05/17 02:38 08/05/17 03: 50 Primacor 20mg/100ml D5w IV 0.2 mcg/kg/min .Q21H7M PRN 4.736 mls/hr TITRATE PER MD ORDER Administration Protocol 0.2 MCG/KG/MIN Sodium Chloride 1,000 mls @ 50 mls/hr 08/05/17 03:00 08/05/17 03:51 Sodium Chloride 0.9% IV 50 mls/hr .Q20H CLARA Administration Insulin Human Lispro 0 units 08/05/17 07:30 08/05/17 11:45 Humalog Low SC Not Given ACHS CLARA Protocol Levalbuterol HCl 0.63 mg 08/05/17 14:00 08/05/17 13:15 Xopenex IH 0.63 mg [id number] CLARA Administration Levalbuterol HCl 0.63 mg 08/05/17 10:21 Xopenex IH Q2 PRN Shortness of Breath Lorazepam 1 mg 08/05/17 15:58 Ativan IVP Q6H PRN Anxiety Protocol Pantoprazole Sodium 40 mg 08/05/17 06:00 08/05/17 06:47 Protonix Ec Tab PO 40 mg 0600 CLARA Administration - Patient Studies Lab Studies: Lab Studies 08/05/17 08/05/17 08/05/17 Range/Units 12:59 12:34 08:18 WBC (4.5-11.0) 10^3/ul RBC (3.5-6.1) 10^6/uL Hgb (14.0-18.0) g/dL Hct (42.0-52.0) % MCV (80.0-105.0) fl MCH (25.0-35.0) pg MCHC (31.0-37.0) g/dl RDW (11.5-14.5) % Plt Count (120.0-450.0) 10^3/uL MPV (7.0-11.0) fl Gran % (50.0-68.0) % Lymph % (Auto) (22.0-35.0) % [place] % (Auto) (1.0-6.0) % Eos % (Auto) (1.5-5.0) % Baso % (Auto) (0.0-3.0) % Gran # (1.4-6.5) Lymph # (1.2-3.4) [place] # (0.1-0.6) Eos # (0.0-0.7) Baso # (0.0-2.0) K/mm3 pO2 (30-55) mm/Hg VBG pH (7.32-7.43) VBG pCO2 (40-60) VBG HCO3 (21-28) mmol/l VBG Total CO2 (22-28) mmol.L VBG O2 Sat (Calc) (40-65) % VBG Base Excess (0.0-2.0) mmol/L VBG Potassium (3.6-5.2) mmol/L Sodium (132-148) mmol/L Chloride (98-107) mmol/L Glucose (75-110) mg/dl Lactate (0.7-2.1) mmol/L FiO2 % Potassium (3.6-5.0) mmol/L Carbon Dioxide (21-33) mmol/L Anion Gap (10-20) BUN (7-21) mg/dL Creatinine (0.5-1.4) mg/dL Est GFR ( Amer) Est GFR (Non-Af Amer) POC Glucose (mg/dL) 129 H 150 H (65-110) mg/dL Random Glucose (70-110) mg/dL Calcium (8.4-10.5) mg/dL Lactate Dehydrogenase (333-699) U/L Total Creatine Kinase (35-230) U/L Troponin I ng/mL Venous Blood Potassium (3.6-5.2) mmol/L Urine Osmolality 331 (50-645) mosm/kg Ur Random Sodium 87 meq/L Blood Type Antibody Screen Crossmatch BBK History Checked 08/05/17 08/05/17 08/05/17 Range/Units 07:14 05:25 05:25 WBC (4.5-11.0) 10^3/ul RBC (3.5-6.1) 10^6/uL Hgb (14.0-18.0) g/dL Hct (42.0-52.0) % MCV (80.0-105.0) fl MCH (25.0-35.0) pg MCHC (31.0-37.0) g/dl RDW (11.5-14.5) % Plt Count (120.0-450.0) 10^3/uL MPV (7.0-11.0) fl Gran % (50.0-68.0) % Lymph % (Auto) (22.0-35.0) % [place] % (Auto) (1.0-6.0) % Eos % (Auto) (1.5-5.0) % Baso % (Auto) (0.0-3.0) % Gran # (1.4-6.5) Lymph # (1.2-3.4) [place] # (0.1-0.6) Eos # (0.0-0.7) Baso # (0.0-2.0) K/mm3 pO2 74 H (30-55) mm/Hg VBG pH 7.43 (7.32-7.43) VBG pCO2 77.0 H* (40-60) VBG HCO3 51.1 H (21-28) mmol/l VBG Total CO2 53.5 H (22-28) mmol.L VBG O2 Sat (Calc) 97.7 H (40-65) % VBG Base Excess 22.0 H (0.0-2.0) mmol/L VBG Potassium 5.0 (3.6-5.2) mmol/L Sodium 135.0 139 (132-148) mmol/L Chloride 91.0 L 84 L (98-107) mmol/L Glucose 131 H (75-110) mg/dl Lactate 1.0 (0.7-2.1) mmol/L FiO2 21.0 % Potassium 5.1 H (3.6-5.0) mmol/L Carbon Dioxide 43 H (21-33) mmol/L Anion Gap 17 (10-20) BUN 86 H (7-21) mg/dL Creatinine 3.2 H (0.5-1.4) mg/dL Est GFR ( Amer) 23 Est GFR (Non-Af Amer) 19 POC Glucose (mg/dL) (65-110) mg/dL Random Glucose 130 H (70-110) mg/dL Calcium 7.9 L (8.4-10.5) mg/dL Lactate Dehydrogenase 391 (333-699) U/L Total Creatine Kinase 20 L (35-230) U/L Troponin I 0.19 H* ng/mL Venous Blood Potassium 5.0 (3.6-5.2) mmol/L Urine Osmolality (50-645) mosm/kg Ur Random Sodium meq/L Blood Type O POSITIVE Antibody Screen Negative Crossmatch See Detail BBK History Checked Patient has bt 08/05/17 Range/Units 05:25 WBC 5.4 (4.5-11.0) 10^3/ul RBC 2.46 L (3.5-6.1) 10^6/uL Hgb 7.3 L (14.0-18.0) g/dL Hct 23.6 L (42.0-52.0) % MCV 95.9 (80.0-105.0) fl MCH 29.7 (25.0-35.0) pg MCHC 30.9 L (31.0-37.0) g/dl RDW 18.8 H (11.5-14.5) % Plt Count 139 (120.0-450.0) 10^3/uL MPV 10.5 (7.0-11.0) fl Gran % 80.4 H (50.0-68.0) % Lymph % (Auto) 9.1 L (22.0-35.0) % [place] % (Auto) 9.6 H (1.0-6.0) % Eos % (Auto) 0.7 L (1.5-5.0) % Baso % (Auto) 0.2 (0.0-3.0) % Gran # 4.33 (1.4-6.5) Lymph # 0.5 L (1.2-3.4) [place] # 0.5 (0.1-0.6) Eos # 0.0 (0.0-0.7) Baso # 0.01 (0.0-2.0) K/mm3 pO2 (30-55) mm/Hg VBG pH (7.32-7.43) VBG pCO2 (40-60) VBG HCO3 (21-28) mmol/l VBG Total CO2 (22-28) mmol.L VBG O2 Sat (Calc) (40-65) % VBG Base Excess (0.0-2.0) mmol/L VBG Potassium (3.6-5.2) mmol/L Sodium (132-148) mmol/L Chloride (98-107) mmol/L Glucose (75-110) mg/dl Lactate (0.7-2.1) mmol/L FiO2 % Potassium (3.6-5.0) mmol/L Carbon Dioxide (21-33) mmol/L Anion Gap (10-20) BUN (7-21) mg/dL Creatinine (0.5-1.4) mg/dL Est GFR ( Amer) Est GFR (Non-Af Amer) POC Glucose (mg/dL) (65-110) mg/dL Random Glucose (70-110) mg/dL Calcium (8.4-10.5) mg/dL Lactate Dehydrogenase (333-699) U/L Total Creatine Kinase (35-230) U/L Troponin I ng/mL Venous Blood Potassium (3.6-5.2) mmol/L Urine Osmolality (50-645) mosm/kg Ur Random Sodium meq/L Blood Type Antibody Screen Crossmatch BBK History Checked Laboratory Results - last 24 hr 08/05/17 08/05/17 08/05/17 05:25 05:25 05:25 WBC 5.4 RBC 2.46 L Hgb 7.3 L Hct 23.6 L MCV 95.9 MCH 29.7 MCHC 30.9 L RDW 18.8 H Plt Count 139 MPV 10.5 Gran % 80.4 H Lymph % (Auto) 9.1 L [place] % (Auto) 9.6 H Eos % (Auto) 0.7 L Baso % (Auto) 0.2 Gran # 4.33 Lymph # 0.5 L [place] # 0.5 Eos # 0.0 Baso # 0.01 pO2 74 H VBG pH 7.43 VBG pCO2 77.0 H* VBG HCO3 51.1 H VBG Total CO2 53.5 H VBG O2 Sat (Calc) 97.7 H VBG Base Excess 22.0 H VBG Potassium 5.0 Sodium 139 135.0 Chloride 84 L 91.0 L Glucose 131 H Lactate 1.0 FiO2 21.0 Potassium 5.1 H Carbon Dioxide 43 H Anion Gap 17 BUN 86 H Creatinine 3.2 H Est GFR ( Amer) 23 Est GFR (Non-Af Amer) 19 POC Glucose (mg/dL) Random Glucose 130 H Calcium 7.9 L Lactate Dehydrogenase 391 Total Creatine Kinase 20 L Troponin I 0.19 H* Venous Blood Potassium 5.0 Urine Osmolality Ur Random Sodium Blood Type Antibody Screen Crossmatch BBK History Checked 08/05/17 08/05/17 08/05/17 07:14 08:18 12:34 WBC RBC Hgb Hct MCV MCH MCHC RDW Plt Count MPV Gran % Lymph % (Auto) [place] % (Auto) Eos % (Auto) Baso % (Auto) Gran # Lymph # [place] # Eos # Baso # pO2 VBG pH VBG pCO2 VBG HCO3 VBG Total CO2 VBG O2 Sat (Calc) VBG Base Excess VBG Potassium Sodium Chloride Glucose Lactate FiO2 Potassium Carbon Dioxide Anion Gap BUN Creatinine Est GFR ( Amer) Est GFR (Non-Af Amer) POC Glucose (mg/dL) 150 H 129 H Random Glucose Calcium Lactate Dehydrogenase Total Creatine Kinase Troponin I Venous Blood Potassium Urine Osmolality Ur Random Sodium Blood Type O POSITIVE Antibody Screen Negative Crossmatch See Detail BBK History Checked Patient has bt 08/05/17 12:59 WBC RBC Hgb Hct MCV MCH MCHC RDW Plt Count MPV Gran % Lymph % (Auto) [place] % (Auto) Eos % (Auto) Baso % (Auto) Gran # Lymph # [place] # Eos # Baso # pO2 VBG pH VBG pCO2 VBG HCO3 VBG Total CO2 VBG O2 Sat (Calc) VBG Base Excess VBG Potassium Sodium Chloride Glucose Lactate FiO2 Potassium Carbon Dioxide Anion Gap BUN Creatinine Est GFR ( Amer) Est GFR (Non-Af Amer) POC Glucose (mg/dL) Random Glucose Calcium Lactate Dehydrogenase Total Creatine Kinase Troponin I Venous Blood Potassium Urine Osmolality 331 Ur Random Sodium 87 Blood Type Antibody Screen Crossmatch BBK History Checked EKG/Cardiology Studies: Cardiology / EKG Studies 08/05/17 06:30 ELECTROCARDIOGRAM DAILY Comment: Reason For Exam: cp Critical Care Progress Note - Nutrition Nutrition: Nutrition Category Date Time Status Heart Healthy Diet [DIET] Diets 08/05/17 Breakfast Ordered Attending/Attestation - Attestation I have personally seen and examined this patient.: Yes I have fully participated in the care of the patient.: Yes I have reviewed all pertinent clinical information: Yes Notes (Text): 08/05/17 16:27 81 y/o M admitted for HX of CHF and possible dehydration and over diuresis . SOFIA, with elevated BUN . Hold Diuretics . Hydrate gently w/ 2L N.S . Follow urine output. Urine electrolytes ordered, serum and urine OSM ordered. Repeat ECHO ordered . previous EF 30%. Milrinone ordered per Cardiology, if ECHo shows improvement of EF% milrinone could be stopped. dvt P cc time 45 min
[2017-08-05] MEDS: Insulin Lispro (humaLOG) LOW Coverage SC SCH ×4 (11:45→22:30)
[2017-08-05] MEDS: Levalbuterol 0.63 MG/3 ML Inhal Soln UD IH SCH ×2 (13:15→20:06)
[2017-08-05] MEDS ORDERED: Sod Polystyrene Sulf 15 gm/60 ml Oral Susp PO ONE (13:39)
--- NOTE | 2017-08-05 14:33 | CARD ---
APPROVED REPORT EXAM: Two-dimensional and M-mode echocardiogram with Doppler and color Doppler. INDICATION CHF,CMP,AICD,PULMONARY HTN 2D DIMENSIONS IVSd1.2 (0.7-1.1cm)LVDd4.5 (3.9-5.9cm) PWd1.3 (0.7-1.1cm)LVDs3.2 (2.5-4.0cm) FS (%) 29.6 %LVEF (%)56.8 (>50%) M-Mode DIMENSIONS Aortic Root3.50 (2.2-3.7cm) Aortic Valve AoV Peak Hsxaabkd316.0cm/sAoV VTI43.3cmAO Peak GR.20mmHg LVOT Peak Fbmotxce468.0cm/sLVOT VTI26.20cmAO Mean GR.11mmHg Mitral Valve MV E Xsjpqsiy063.0cm/sMV E Peak Gr.30mmHgMV A Fqrtisrn94.5cm/s MV E Mean Gr.10mmHgMV [id number]/A ratio1.8 MVA (PHT)1.83cm2 TDI E/Lateral E'0.0E/Medial E'0.0 Pulmonary Valve PV Peak Pvldqmdn33.7cm/sPV Peak Grad.2mmHg Tricuspid Valve TR Peak Afvmafpp468fr/sRAP [id number] Peak Gr.68mmHg [id number] LEFT VENTRICLE The left ventricle is normal size. There is mild to moderate concentric left ventricular hypertrophy. The systolic function is mildly impaired.EF-40% There is moderate to severe hypokinesis in the apical anterior wall. No left ventricle thrombus noted on this study. There is no ventricular septal defect visualized. There is no left ventricular aneurysm. There is no mass noted in the left ventricle. RIGHT VENTRICLE The right ventricle is mildly dilated. There is normal right ventricular wall thickness. Systolic function is mildly reduced. There is a pacemaker lead in the right ventricle. ATRIA The left atrium is mildly dilated. The right atrium is mildly dilated. There is a catheter/pacemaker lead seen in the right atrium. The interatrial septum is intact with no evidence for an atrial septal defect. AORTIC VALVE S/P Bioprosthetic AVR, Normal functioning. MITRAL VALVE Mitral regurgitation is trace. S/p MV repair with Ring, normal Functioning. TRICUSPID VALVE The tricuspid valve leaflets are thickened , but open well. There is moderate tricuspid regurgitation.RVSP-78 mmof Hg. There is no tricuspid valve stenosis. There is no tricuspid valve prolapse or vegetation. PULMONIC VALVE The pulmonic valve is not well visualized. GREAT VESSELS The aortic root is normal in size. The ascending aorta is normal in size. The pulmonary artery is normal. The IVC is normal in size and collapses >50% with inspiration. PERICARDIAL EFFUSION There is moderate left pleural effusion. There is a trace circumferential pericardial effusion. <Conclusion> The left ventricle is normal size. There is mild to moderate concentric left ventricular hypertrophy. The systolic function is mildly impaired.EF-40% There is moderate to severe hypokinesis in the apical anterior wall. There is a pacemaker lead in the right ventricle. S/P Bioprosthetic AVR, Normal functioning. S/p MV repair with Ring, normal Functioning.MVA 1.85 cm2 There is moderate tricuspid regurgitation.RVSP-78 mmof Hg.
[2017-08-05 14:35] VITALS: BMI 26.2
[2017-08-05] MEDS ORDERED: Pneumococcal 23-Valent Vaccine IM ONE (14:35)
--- NOTE | 2017-08-05 15:14 | CON ---
DATE: 08/05/2017 REASON FOR CONSULTATION: Chronic obstructive pulmonary disease. REFERRING PHYSICIAN: Bob Gamez MD HISTORY OF PRESENT ILLNESS: The patient is an 81-year-old male, with past medical history significant for chronic obstructive pulmonary disease, recurrent congestive heart failure, chronic left pleural effusion, coronary artery disease, status post open heart surgery in the past, status post AICD, status post mitral valve replacement, status post aortic valve replacement, hypertension, diabetes mellitus, chronic anemia, GI bleeding in the past, who presents to [facility] with main complaints of worsening shortness of breath at rest, dyspnea on exertion, and generalized weakness over the past 2 days. The patient also complaints of an increased cough with minimal sputum production. There is no history of chest pain, coughing up of blood, or chest pain-made worse with deep respirations. There is no history of temperatures, chills, or infectious exposure. There is no history of night sweats, weight loss or appetite change prior to the above events. There is no history of leg or calf pains. Although, the patient does state that both of his legs have been swelling over the past few days. No history of syncope or diaphoresis. No history of recent travel or trauma. REVIEW OF SYSTEMS: The patient does state to trouble urinating over the past few days. No history of nausea, vomiting, or diarrhea. No new neurologic or musculoskeletal complaints. Rest of the review of systems is negative. ALLERGIES: NO KNOWN ALLERGIES. SOCIAL HISTORY: Positive for tobacco. Negative for alcohol. FAMILY HISTORY: No inheritable diseases. HOME MEDICATIONS: Include Zaroxolyn, metformin, Venofer, Lasix, diazepam, Coreg. PHYSICAL EXAMINATION: GENERAL: The patient is not short of breath at rest. He is not using accessory muscles for breathing. VITAL SIGNS: Temperature 98.5, pulse is 70, respirations 18, blood pressure 108/47. Oxygen saturation on nasal cannula is 96% to 97%. HEENT: Normocephalic and atraumatic. NECK: No JVD. CARDIOVASCULAR: Systolic ejection murmur at the lower left sternal border. Positive S3 gallop. LUNGS: Decreased breath sounds with crackles at both bases. Minimal bilateral rhonchi. No wheezing. EXTREMITIES: Positive for edema. No cyanosis. No clubbing. Calves are nontender to palpation. GASTROINTESTINAL: Abdomen is soft, nontender, and nondistended. Bowel sounds are positive. SKIN: No acute rash. NEUROLOGIC: Limited at the present time. PERTINENT LABORATORY DATA: Chest x-ray was done and reviewed. I have also compared it to the chest x-ray done on 07/12/2017. On today's film, there is a severe increase in the pulmonary vascular congestive changes. There is also a chronic moderate left pleural effusion-possibly slightly increased. Complete metabolic profile: Potassium 5.1, chloride 84, carbon dioxide 43, BUN 86, creatinine 3.2, glucose 130, calcium is 7.9, troponin 0.19. Rest of the metabolic profiles within normal limits. B-type natriuretic peptide done yesterday, it was significantly elevated at 6780. Arterial blood gas was done on nasal cannula yesterday. Results are: pH 7.55, pCO2 of 55, pO2 of 64. CBC: White count 5.4, hemoglobin 7.3, hematocrit 23.6, and platelets of 139. IMPRESSION: 1. Acute congestive heart failure. 2. Chronic obstructive pulmonary disease. 3. Chronic left pleural effusion. 4. Renal insufficiency. 5. Anemia. 6. Coronary artery disease. PLAN: The patient presents to [facility] with main complaints of increasing shortness of breath at rest, dyspnea on exertion, and weakness for the past 2 days. In addition, the patient also complaints of increased cough with minimal sputum production over the past 2 days. There are no other pulmonary symptoms. I did review the chest x-ray as above. There is a significant congestive heart failure seen with a chronic left pleural effusion. As above, the left pleural effusion may be slightly increased compared to the previous film. There is also a small right pleural effusion. I have also reviewed the laboratory data. A significant raise in the B-type natriuretic peptide is noted. Renal insufficiency is also noted. The patient was given Lasix in the emergency room, and started on a milrinone drip. Cardiology evaluation with Dr. Leach has been ordered. Renal evaluation with Dr. Nath has also been ordered. On physical exam, there is mild bronchospasm present. On arterial blood gas analysis, there is also a significant alveolar-arterial gradient. The patient will be started on nebulizer treatments and inhaled steroids this morning. The patient's overall status is certainly guarded at this point in time. I did discuss the case with the medical affairs specialist and Dr. Padkowsky at length. I will also order a repeat chest x-ray for tomorrow. Additional pulmonary intervention will be based on the above results, as well as the clinical status of the patient. Thank you very much for this pulmonary consultation. Alex Rothman MD [facility]
--- NOTE | 2017-08-05 16:01 | CON ---
DATE: 08/05/2017 REASON FOR CONSULTATION: Cardiac evaluation, congestive heart failure, CABG, MVR, AICD. BRIEF CLINICAL HISTORY: An 81-year-old male with past medical history significant for coronary artery disease, CABG, congestive heart failure, OH in the past, AICD, status post MVR, AVR, hypertension, type 2 diabetes came to the emergency room, not making urine for couple of days, found to be with elevated BUN and creatinine, severe anemia and currently 8.1. Upon passing Noel catheter, the patient made 750 mL of urine. Initial admission creatinine was 3.4. Denies any chest pain. Denies any shortness of breath. Denies any palpitation. PAST MEDICAL HISTORY: Significant for coronary artery disease, OH, coronary artery bypass surgery, valve surgery, history of aortic valve replacement and bioprosthetic pericardial valve and ring placement on mitral valve, history of ischemic cardiomyopathy status post AICD, arthritis, sleep apnea, anemia. PAST SURGICAL HISTORY: Significant for coronary artery bypass surgery and surgery for hydrocele in the past. Previous cardiac workup as follows: The patient had a stress test on 07/29/2016 that showed fixed defect, ejection fraction 51%. The patient did echocardiography on 01/06/2016, normal LV size, normal LV function, ejection fraction 30%, moderate aortic regurgitation, moderate tricuspid regurgitation, RV systolic pressure elevated at 114 consistent with severe pulmonary hypertension. Normal LV function, paradoxical septum. My last echo here 01/06/2016 as mentioned right ventricle is normal size reported and RV systolic pressure 114 mmHg consistent with severe pulmonary hypertension. Ejection fraction decreased, found to be estimated 30%, [id number] aortic regurgitation, moderate tricuspid regurgitation and severe pulmonary hypertension. History of cardiomyopathy, history of coronary artery bypass surgery with valve replaced as mentioned. Also, history of diabetes, hypertension, hyperlipidemia. CURRENT MEDICATION: The patient is taking at home metolazone 2.5 mg daily, metformin 8.5 mg daily, Venofer, Lasix, diazepam and Coreg. ALLERGIES: NO KNOWN DRUG ALLERGIES. REVIEW OF SYSTEMS: As per HPI. The patient says that he cannot make urine for couple of days, so decided to come to ER and feels very weak and lethargic, no history of chest pain. PHYSICAL EXAMINATION: VITAL SIGNS: Temperature afebrile, heart rate 80, blood pressure 130/80. HEENT: PERRLA intact. NECK: Supple. No carotid bruits or thyromegaly. CHEST: Clear to auscultation. HEART: S1 and S2 regular. ABDOMEN: Soft. EXTREMITIES: Clubbing and cyanosis negative. HEENT: PERRLA. Extraocular muscles intact. NECK: Supple. No carotid bruits or thyromegaly. CHEST: Clear to auscultation. HEART: S1 and S2 regular. ABDOMEN: Soft. EXTREMITIES: Clubbing and cyanosis negative. LABORATORY DATA: EKG shows V-paced rhythm, underlying atrial fibrillation possibly. Noel catheter in place, draining clear urine. Blood workup as follows. WBC 5.4, hemoglobin 7.3, hematocrit 23.6, platelet count 139. Chemistry shows sodium 139, potassium 5.0, chloride 84, carbon dioxide 43, anion gap of 84, BUN 17, creatinine 3.2. Troponin 0.89, 0.19. Previously, patient had a normal renal function as of 07/13/2017, creatinine 1, whereas hemoglobin 8.4. IMPRESSION: Acute kidney injury, history of chronic anemia, coronary artery disease, status post coronary artery bypass grafting, status post bioprosthetic aortic valve replacement, status post mitral valve ring replacement done, status post automatic implantable cardioverter defibrillator. The patient had a stress test on 07/29/2016 that showed fixed defect, no reversible ischemia, ejection fraction calculated at 51%. The patient had echocardiography done on 01/06/2016 that shows consistent with severe pulmonary hypertension, RV systolic pressure calculated at 114, ejection fraction 30%. RECOMMENDATIONS: The patient admitted with acute kidney injury and possibly obstructive uropathy, known history of diabetes, hypertension, hyperlipidemia, ischemic cardiomyopathy, coronary artery bypass surgery, AVR, bioprosthetic and MVR ring replacement, history of AICD placed, severe decreased LV function, severe pulmonary hypertension. The patient is clinically not in failure with acute kidney injury. We will continue IV fluids, continue milrinone. EKG shows V-paced rhythm underlying, possibly sinus mechanism, consider packed RBC transfusion. If the blood pressure is low, we will hold Coreg, continue gentle hydration, continue low-dose milrinone, monitor electrolytes, monitor signs of CHF. So far patient appears more on the dry side than history of cardiomyopathy, but does not look like at this time patient is in congestive heart failure, so cautious hydration. We will follow with you. Chest x-ray consistent with pleural effusion as well, consider packed RBC transfusion. The patient is seen in ER, but possibly going to ICU for further recommendation depending on the hospital course, cautious hydration because chest x-ray consistent with fluffy infiltrate, could be atypical pneumonia versus CHF. We will also decrease the dose of carvedilol to 3.125 b.i.d. with holding parameters. We will get echo also and get the lipid profile, THC, hemoglobin A1c. We will follow. Probably this little spill in the troponin is secondary to acute kidney injury. We will follow the serial CPK and troponin. Not a candidate to go for the computer lab aide because of worsening renal insufficiency. We will follow with you. Thank you Dr. Ronnie Gamez for providing us the opportunity in taking care of Aamir. Tara Leach MD
--- NOTE | 2017-08-05 17:09 | US ---
PROCEDURE: Ultrasound of the Kidneys HISTORY: renal failure COMPARISON: And pelvis CT without contrast 06/20/2016. TECHNIQUE: Sonogram of the kidneys. FINDINGS: RIGHT KIDNEY: Measures: 10.6 x 6.1 x 5.0 cm. The right kidney exhibits mild cortical atrophy and is normal in size. Corticomedullary differentiation is poor. No stone, solid mass lesion or hydronephrosis visualized. LEFT KIDNEY: Measures: 11.4 x 6.3 x 5.0 cm. Mild left renal cortical atrophy is also identified with poor corticomedullary differentiation. The left kidney is normal in size. A probable exophytic hyperdense cyst related to upper pole left kidney is not seen this examination but is stable comparing CT examinations from 06/20/[address] exam 07/10/2013. No stone, solid mass lesion or hydronephrosis visualized. OTHER FINDINGS: Mild ascites and moderately large left pleural effusion incidentally noted. IMPRESSION: No obstructive uropathy bilaterally. Bilateral cortical atrophy is appreciate swells poor corticomedullary differentiation, likely reflecting intrinsic medical renal disease. Incidental mild abdominal ascites with a mildly large left pleural effusion noted as well.
--- NOTE | 2017-08-05 18:48 | CARD ---
APPROVED REPORT EKG Measurement Heart [id number] <Conclusion> Electronic ventricular pacemaker
[2017-08-05] MEDS: Budesonide 0.5 mg/2 ml Inhal Susp UD IH SCH (20:06)
--- NOTE | 2017-08-05 20:27 | CON ---
DATE: 08/05/2017 REASON FOR CONSULTATION: Acute kidney injury, severe anemia, shortness of breath, hyperkalemia. HISTORY OF PRESENTING ILLNESS: An 81-year-old male is seen in the ICU. is at bedside. The patient seems to be a poor historian. He reports that he came to the emergency room because he was not feeling well. He is not feeling right. As per the ER note, he reported feeling weak, dizzy, and short of breath prior to presentation. Also reported worsening lower extremity swelling. He denies any chest pain, palpitations. He denies any abdominal pain, nausea, vomiting. As per the , he had one episode of diarrhea. He also reports that he was not urinating. He reports that usually his Lasix makes him urinate, but he did not urinate and so he came to the emergency room. In the emergency room, he was found to have blood pressure of 104/55, heart rate of 80, O2 sat of 88% on room air. He was found to be afebrile. Further, his blood work showed potassium of 5.7, BUN of 82 and creatinine of 3.4. His BMP was 6780. His hemoglobin was 8.4. He reports that he sees Dr. Herrera and he has been anemic all his life. PAST MEDICAL AND SURGICAL HISTORY: CAD, CABG, CHF, [place], AICD, it is a permanent pacemaker, mitral valve replacement, aortic valve replacement, hypertension, NIDDM, anemia, GI bleed. FAMILY HISTORY: Noncontributory. SOCIAL HISTORY: Cigar smoker, no alcohol use, no IV drug abuse. ALLERGIES: NO KNOWN DRUG ALLERGIES. MEDICATIONS AT HOME: Metolazone, Coreg, metformin, diazepam, furosemide, Coreg, Venofer. REVIEW OF SYSTEMS: Extremely limited systems review. The patient is not able to fully cooperate. He complains of difficulty urinating. Increased lower extremity edema. Denies any chest pain. Rest unremarkable. PHYSICAL EXAMINATION: GENERAL: An elderly male lying in bed in the ICU. VITAL SIGNS: Blood pressure 108/40, heart rate 73, respiratory rate 22, temperature 98.1. HEENT: Normocephalic, atraumatic, positive pallor. NECK: Supple, no JVD. LUNGS: Bilateral equal entry, bilateral rhonchi, poor inspiratory effort, decreased breath sounds at bases. CARDIAC: S1, S2. Regular rate and rhythm. Positive murmur. No rub. ABDOMEN: Obese, distended, soft, nontender, bowel sounds present. EXTREMITIES: 2+ pitting edema of the lower extremities. INTAKE AND OUTPUT: Not charted. LABORATORY DATA: WBC 5.4, hemoglobin 7.3, hematocrit 24, platelets 139 and MCV 96. Sodium 139, potassium 5.1, chloride 84, CO2 of 43, BUN 86, creatinine 3.2, glucose 130, calcium 7.9, troponin 0.19, CPK 20, albumin 3.6. Urinalysis not available. ABG pH 7.55, pCO2 55, pO2 64. Echocardiogram, EF about 40%, onqx-[id number]-ssfrhbnj concentric left ventricular hypertrophy, [id number] hypokinesis of the apical anterior wall, Bioprosthesis AVR, MVR, moderate tricuspid regurg. CURRENT MEDICATIONS: Ativan, Coreg 3.125 b.i.d., heparin 5000 subcu q. 12, insulin, Milrinone, Protonix, normal saline at 50 mL/hour, Valium, Xopenex. The patient is status post Kayexalate x1. ASSESSMENT: An 81-year-old male with multiple medical problems including coronary artery disease, coronary artery bypass graft, congestive heart failure, aortic valve replacement, mitral valve replacement, automatic implantable cardioverter-defibrillator, ischemic cardiomyopathy, chronic severe anemia, sleet apnea, arthritis is admitted with complaints of worsening shortness of breath, worsening lower extremity edema, decreased urine output. He is found to have acute kidney injury, hyperkalemia, metabolic alkalosis, severe anemia. 1. Acute kidney injury superimposed on chronic kidney disease stage II. Etiology of acute kidney injury appears to be cardiorenal syndrome. The patient has decreased ejection fraction, severe hypotension, severe anemia. Suspect he has decreased cardiac output, renal hypoperfusion. 2. Hyperkalemia secondary to acute kidney injury. 3. Mixed alkalosis, combination of metabolic alkalosis and chronic respiratory acidosis. 4. Severe anemia, acute on chronic?? GI blood loss. 5. Acute coronary syndrome? 6. Hypocalcemia. 7. Noninsulin-dependent diabetes mellitus? PLAN: 1. Agree with Primacor/inotropic agent to increase cardiac output. 2. Agree with gentle hydration. 3. Recommend stool occult x3. 4. Consider blood transfusion. 5. Check urinalysis. 6. Avoid further use of Kayexalate. 7. Hold diuretics. 8. Case discussed with ICU resident, case discussed with the patient and at bedside. More than 35 minutes spent in the care of this critically ill patient. Thank you for the courtesy of this consultation. Yaneth Mckeon MD
[2017-08-05 21:44] LABS: TROPONIN I 0.14 ng/mL
[2017-08-06] MEDS: Levalbuterol 0.63 MG/3 ML Inhal Soln UD IH SCH ×4 (01:55→20:51)
--- NOTE | 2017-08-06 03:50 | HP ---
LOCATION: The patient currently is in CCU, bed #129. HISTORY OF PRESENT ILLNESS: The patient is an 81-year-old white male with a past medical history of chronic obstructive pulmonary disease, recurrent congestive heart failure, chronic left pleural effusion, coronary artery disease, status post open heart surgery in the past, status post AICD, status post mitral valve replacement, status post aortic valve replacement, hypertension, diabetes, chronic anemia, GI bleeding in the past. He presented to [facility] with a chief complaint of worsening of shortness of breath at rest, dyspnea on exertion, and generalized weakness over the past 2 days. He also complains of an increased cough with a minimal sputum production. No history of coughing up blood. No history of fever or chills. No history of weight loss or appetite change. REVIEW OF SYSTEMS: No history of nausea, vomiting and a 12-point review of systems is unremarkable. ALLERGIES: THE PATIENT HAS NO KNOWN ALLERGIES. SOCIAL HISTORY: The patient is a former smoker. Does not drink. FAMILY HISTORY: Nonsignificant. PHYSICAL EXAMINATION VITAL SIGNS: Temp of 98.1, blood pressure 113/53, respiratory rate of 26, O2 saturation of 93%. HEENT: PERRLA. EOMI. No icterus is present. The neck is supple with a full range of motion. No bruits or jugular venous distention is present. LUNGS: Show decreased breath sounds. There are crackles in both bases. Minimal bilateral rhonchi. There was no wheeze. HEART: Regular rate and rhythm. Systolic ejection murmur along the left sternal border. ABDOMEN: Soft, nontender, nondistended. Bowel sounds are normoactive. EXTREMITIES: Show 1+ edema. No cyanosis or clubbing. He has a full range of motion. NEUROLOGICAL: There are no focal motor deficits. LABORATORY DATA: WBC of 5.4, hemoglobin and hematocrit is 7.3 and 23.6. Coagulation is within normal limits. The SMA-23 shows a potassium of 5.1, carbon dioxide of 43, BUN of 86 with a creatinine of 3.2, random glucose of 130. Troponins are elevated at 0.18, yesterday night and 0.19 this morning. The patient will be hydrated. Dr. Rothman has seen the patient and cardiology will also see the patient for further management. We will depend on continuing blood work. CURRENT DIAGNOSES: Acute congestive heart failure, chronic obstructive pulmonary disease, chronic left pleural effusion, renal insufficiency, anemia, and coronary artery disease. Bob Gamez MD
[2017-08-06] MEDS: Pantoprazole 40 mg EC Tab PO SCH (05:45)
[2017-08-06 06:06] LABS: ARTERIAL BLOOD GAS O2 CAPACITY 15.5 mL/dl (16-24); ARTERIAL BLOOD GAS O2 CONTENT 14.5 ML/dl (15-23); ARTERIAL BLOOD GAS PH 7.35 (7.35-7.45); ARTERIAL BLOOD HGB O2 SAT 90.1 % (95.0-98.0); CARBOXYHEMOGLOBIN 2.8 % (0.5-1.5); HHB 6.1 % (0-5)
[2017-08-06 06:10] LABS: ARTERIAL BLOOD GAS HCO3 45.8 mmol/L (21-28)
[2017-08-06 07:03] LABS: BASO # 0.01 K/mm3 (0.0-2.0); BASO % 0.2 % (0.0-3.0); EOS % 0.4 % (1.5-5.0); GRAN # 3.78 (1.4-6.5); GRAN % 80.3 % (50.0-68.0); LYMPH # 0.5 (1.2-3.4); MEAN CELL VOLUME 95.7 fl (80.0-105.0); MEAN CORPUSCULAR HGB CONC 30.3 g/dl (31.0-37.0); MONO # 0.4 (0.1-0.6); MONO % 8.1 % (1.0-6.0); WHITE BLOOD COUNT 4.7 10^3/ul (4.5-11.0)
[2017-08-06] MEDS: Insulin Lispro (humaLOG) LOW Coverage SC SCH ×4 (07:30→21:24)
[2017-08-06 07:34] LABS: CALCIUM 8.6 mg/dL (8.4-10.5); MAGNESIUM 2.1 mg/dL (1.7-2.2); PHOSPHOROUS 5.8 mg/dL (2.5-4.5); POTASSIUM 4.7 mmol/L (3.6-5.0)
[2017-08-06] MEDS ORDERED: Sodium Chloride 0.9% 1,000 ML IV SCH (07:42)
[2017-08-06] MEDS: Budesonide 0.5 mg/2 ml Inhal Susp UD IH SCH ×2 (07:43→20:51)
[2017-08-06 07:50] LABS: TROPONIN I 0.15 ng/mL
[2017-08-06 08:04] LABS: ARTERIAL BLOOD GAS O2 CAPACITY 12.8 mL/dl (16-24); ARTERIAL BLOOD GAS O2 CONTENT 12.7 ML/dl (15-23); ARTERIAL BLOOD GAS PH 7.45 (7.35-7.45); ARTERIAL BLOOD HGB O2 SAT 95.1 % (95.0-98.0); CARBOXYHEMOGLOBIN 3.1 % (0.5-1.5); METHEMOGLOBIN 0.9 % (0.0-3.0)
[2017-08-06 08:10] LABS: ARTERIAL BLOOD GAS HCO3 45.2 mmol/L (21-28)
--- NOTE | 2017-08-06 08:10 | PN ---
DATE: 08/06/17(615am--705am) SUBJECTIVE: The patient is mildly short of breath at the present time. He is in no acute distress. PHYSICAL EXAMINATION VITAL SIGNS: Temperature 98.0, pulse 70, respirations 22-24, blood pressure 145/65. Oxygen saturation on nasal cannula is 97%. HEENT: Normocephalic, atraumatic. NECK: No JVD. CARDIOVASCULAR: Systolic ejection murmur at the lower left sternal border. Positive S3 gallop. LUNGS: Decreased breath sounds at the bases with crackles. Less rhonchi. No wheezing. EXTREMITIES: Positive for edema. No cyanosis, no clubbing. Calves are nontender to palpation. GASTROINTESTINAL: Abdomen is soft, nontender, nondistended. Bowel sounds are positive. SKIN: No acute rash. NEUROLOGIC: Limited at the present time. PERTINENT LABORATORY DATA: Chest x-ray was done this morning and reviewed. The chest x-ray remains with significant congestive heart failure. There may be a small decrease in the left pleural effusion. Arterial blood gas was done on nasal cannula. Results are; pH 7.35, pCO2 of 83, pO2 of 64. IMPRESSION: 1. Acute congestive heart failure. 2. Chronic obstructive pulmonary disease. 3. Respiratory failure. 4. Chronic left pleural effusion. 5. Renal insufficiency. 6. Anemia. 7. Coronary artery disease. PLAN: The patient appears mildly short of breath this morning. He is in no acute distress. I did review the chest x-ray as above. The chest x-ray remains with significant congestive heart failure, and a possible slight decrease in the left pleural effusion. I have also reviewed the arterial blood gas. The arterial blood gas reveals an acute respiratory acidosis with hypoxemia. BiPAP will be instituted. I will also check a repeat arterial blood gas in approximately 1 hour. On physical exam, there is less bronchospasm noted. I will continue with the current nebulizer treatments and inhaled steroids for now. I would continue with the cardiology evaluation. Input by Dr. Leach is noted. The patient remains on a milrinone drip. Renal evaluation is also noted. The patient is clinically ill at this point in time. Additional pulmonary intervention will be based on the above results, as well as the clinical status of the patient. I will discuss the above with the entire ICU team in the next few moments. I will also discuss the above with Dr. Gamez later this morning. Alex Rothman MD [facility]
--- NOTE | 2017-08-06 09:09 | RAD ---
HISTORY: follow up COMPARISON: 08/04/2017. FINDINGS: LUNGS: There is no significant interval change in severe pulmonary venous congestion and confluent airspace disease in the lower lobes, worse on the left. PLEURA: Persistent pleural effusions, worse on the left. No pneumothorax apparent. CARDIOVASCULAR: The cardiomediastinal silhouette is stable. Status post CABG. There is late stable position of left-sided transvenous permanent pacing device. OSSEOUS STRUCTURES: There is an old fracture deformity in the right proximal humerus. VISUALIZED UPPER ABDOMEN: Normal. OTHER FINDINGS: None. IMPRESSION: No significant interval change in severe pulmonary venous congestion and confluent airspace disease in both lower lobes, worse on the left Persistent pleural effusions, worse on the left.
--- NOTE | 2017-08-06 09:26 | PQF CHF ---
This form is a permanent part of the medical record Dr. Gamez, Please specify type and severity of CHF present in this patient. Clarification of your documentation is requested to better reflect the severity of illness and intensity of treatment of your patient. Indicators present [x] Diagnosis of CHF and/or history of CHF [x] BNP > 200 [x] Imaging Finding of Pulmonary Edema /Pleural Effusions [] Fluid/Volume Overload [] Pitting edema [] Ejection Fraction < 40% (Indicative of Systolic Heart Failure) [x] Ejection Fraction > 40% (Indicative of Diastolic Heart Failure) [x] Dyspnea / Orthopenea / Paroxysmal Nocturnal Dyspnea [] Other: Location in the medical record that reflects the above clinical findings: [] Treatment Provided: [] primacor lasconnor PHYSICIAN'S RESPONSE Based on your medical judgment of the clinical indicators outlined above, are you treating this patient for a known or suspected: [] Acute CHF [] Systolic [] Diastolic [] Combined [] Chronic CHF [] Systolic [] Diastolic [] Combined [X] Acute on Chronic CHF [X]Systolic [] Diastolic [] Combined [] CHF due hypertension [] Acute systolic []Chronic systolic [] Acute/ chronic systolic [] Other, please indicate: [] [] If Unable to Determine, please check the box, sign and date. Present On Admission (POA) Indicator: [X] Present at the time of admission [] Not present at the time of admission [] Clinically Undetermined In responding to this query, please exercise your independent professional judgment. The fact that a question is asked does not imply that any particular answer is desired or expected. Thank you for your clarification on this documentation. If you have any questions please call:[ ] * Thank you, [ ]Janes [facility] #[id number] snap shearer MONICA
[2017-08-06 10:26] LABS: ARTERIAL BLOOD GAS HCO3 39.5 mmol/L (21-28); ARTERIAL BLOOD GAS O2 CAPACITY 11.5 mL/dl (16-24); ARTERIAL BLOOD GAS O2 CONTENT 11.2 ML/dl (15-23); ARTERIAL BLOOD GAS PH 7.36 (7.35-7.45); ARTERIAL BLOOD HGB O2 SAT 93.6 % (95.0-98.0); CARBOXYHEMOGLOBIN 3.2 % (0.5-1.5); HHB 2.6 % (0-5); METHEMOGLOBIN 0.6 % (0.0-3.0)
--- NOTE | 2017-08-06 10:53 | PN ---
DATE: REASON FOR CONSULTATION: For cardiac evaluation, congestive heart failure, CABG, MVR, AICD. Admitted with acute obstructive uropathy, acute kidney injury. SUBJECTIVE: The patient denies any chest pain. Denies any shortness of breath. Denies any palpitations. OBJECTIVE: GENERAL: Lying flat in ICU, 129, bed 6. Mild respiratory distress and basal crackles. VITAL SIGNS: Temperature afebrile, heart rate 80, and blood pressure 161/73. HEENT: PERRLA. Extraocular muscles intact. NECK: Supple. No carotid bruits. No thyromegaly. CHEST: Clear to auscultation. Bilateral crackles noted. HEART: S1 and S2 regular. ABDOMEN: Soft. EXTREMITIES: Clubbing and cyanosis negative. LABORATORY DATA: Chest x-ray consistent with a flash pulmonary edema. Blood workup shows WBC 4.5, hemoglobin 10, hematocrit 33.0, and platelet count 171. Chemistry shows sodium 139, potassium 5.4, chloride 80, carbon dioxide 43, anion gap of 70, BUN , and creatinine 3.2. Troponin 0.18, 0.19. IMPRESSION: Acute kidney injury, obstructive uropathy status post Noel catheter, and then 75 mL of urine was drained. The patient states that he cannot pass the urine. Yesterday, he made 1.3 L of urine and nitrogen negative balance. Was on gentle hydration 50 mL an hour. Chest x-ray consistent with pulmonary edema. History of coronary artery bypass grafting, history of bioprosthetic aortic valve replacement, and history of mitral valve repair. Positive troponin probably secondary to underlying coronary artery disease as well as acute kidney injury, but cannot rule out underlying waa-ET-gptrmap myocardial infarction, and history of cardiomyopathy. The patient's repeat echo done yesterday that revealed ejection fraction of 40%, moderate to severe apical anterior wall pacemaker lead noted in RV, bioprosthetic aortic valve replacement normal functioning, status post mitral valve repair normal functioning. Valve area 1.85 cm. Moderate tricuspid regurgitation and systolic pressure of 78. RECOMMENDATIONS: Continue . We will give stat Lasix dose. Yesterday IV fluid was given, gentle. We will discontinue IV fluid, continue Coreg, and continue milrinone. Lasix is stat dose and we will give another dose after 3:00 p.m. and start 10:00 a.m. Lasix one dose from tomorrow everyday. Further recommendation depending on hospital course and further dose of Lasix depend upon the renal function. Chest x-ray consistent with CHF, so we will give one more Lasix at 3:00 p.m. Further recommendation depending on hospital course. The patient is not a candidate to go to the labor relations analyst due to troponin positive probably secondary to acute kidney injury that will completely through the patient into renal failure and the patient do not complain of any chest pain. He came in with inability to pass urine. Further recommendation depending on hospital course. Yesterday, two units of packed RBC were given. We will follow with you. Thank you Dr. Gamez for providing us the opportunity in taking care of Alex Rutledge. Tara Leach MD
--- NOTE | 2017-08-06 11:32 | PN ---
DATE: SUBJECTIVE: The patient is an 81-year-old white male in CCU, room 129, bed 6. The patient's only complaint is that he wants to go home. There have been no acute events overnight. PHYSICAL EXAMINATION: VITAL SIGNS: Temperature 98 rectally, pulse rate of 70, blood pressure 147/72 with an O2 saturation of 97% on room air. HEENT: Unremarkable. NECK: Supple. No JVD or bruits. LUNGS: Clear bilaterally. HEART: With a regular rate and rhythm with a systolic ejection murmur at the lower left sternal border. ABDOMEN: Benign. EXTREMITIES: Show trace edema. NEUROLOGICAL: There are no focal deficits. LABORATORY DATA: This morning: White blood count of 4.7, hemoglobin and hematocrit of 10.0 and 33.0. Chemistry, his BUN is 72 where initially it was 86, creatinine is 2.4 where initially it was 3.4. Random glucose of 131. Total CK of 24. Troponin of 0.15 PLAN: We will continue current regimen. Bob Gamez MD
[2017-08-06] MEDS: Milrinone 20mg/100ml D5W 100 ML IV PRN (12:07)
--- NOTE | 2017-08-06 13:37 | CARD ---
APPROVED REPORT EKG Measurement Heart [id number] <Conclusion> Electronic ventricular pacemaker
--- NOTE | 2017-08-06 20:47 | PN ---
DATE: 08/06/2017 SUBJECTIVE: The patient is seen lying in bed in the ICU. He is agitated. He is not following commands. He is thrashing. He is currently on Primacor at 0.2 mcg per kilogram per minute, he received Lasix 40 mg IV push x2 doses. PHYSICAL EXAMINATION: GENERAL: Examination elderly male lying in bed in the ICU. VITAL SIGNS: Blood pressure 97/69, heart rate 73, respiratory rate 21-30, temperature 97.6. HEENT: Normocephalic, atraumatic, positive pallor. NECK: Supple, no JVD. LUNGS: Bilateral equal entry, bilateral equal expansion, decreased air entry at bases. CARDIAC: S1 and S2, regular rate and rhythm, positive murmur, positive click. ABDOMEN: Obese, distended, soft, nontender, bowel sounds present. EXTREMITIES: 1+ pitting edema of the lower extremities. INTAKE AND OUTPUT: 2657/2350. LABORATORY DATA: WBC 4.7, hemoglobin 10, hematocrit 33, platelets 171. Sodium 142, potassium of 4.7, chloride 87, CO2 of 41, BUN 72 creatinine 2.4, glucose 131, calcium 8.6, phosphorus 5.8, magnesium 2.1, troponin 0.15. Urine sodium 87, urine osmolality 331. ASSESSMENT: 1. Acute kidney injury superimposed on chronic kidney disease stage II/III suspect. 2. Cardiorenal syndrome. 3. Severe congestive heart failure, cardiomyopathy, coronary artery disease, aortic valve replacement, mitral valve replacement. 4. Severe anemia. 5. Metabolic alkalosis. 6. Acute coronary syndrome/myocardial stress. 7. Resolved hypokalemia. 8. Dementia. PLAN: 1. Agree with Primacor. 2. Agree with Lasix to diurese. 3. The patient's cardiac output has improved with blood transfusion, the patient is diuresing much better. 4. Follow up stool occults. 5. Monitor H&H. 6. Check stool occults. 7. Avoid over diuresis. 8. Suspect chronic kidney disease, the patient is hypocalcemic, hyperphosphatemic, check PTH. Case d/w ICU team at length, d/w nursing staff. >35 min spent in care of this critically ill male. Yaneth Mckeon MD MONICA
--- NOTE | 2017-08-07 02:28 | CON ---
DATE: HISTORY OF PRESENT ILLNESS: The patient is an 81-year-old male with multiple medical issues including coronary artery disease, CHF, IA, hypertension, type 2 diabetes, anemia, GI bleed. The patient was admitted into TCU for generalized weakness. The patient has dizziness, dyspnea on exertion. The patient also has altered mental status saying he does not feel like himself. Psych consult was called for evaluation of altered mental status and possible medication management. The patient was seen today in CCU. The patient presented to be alert, short of breath, has difficulty to have full sentences. The patient at the same time presented to be confused. The patient feels that he is in [facility]. Asked earlier the nurse to shut off the radio, but the patient does not have radio in the room. Also the patient appears to be restless, but no agitation. The patient overall was pleasant and cooperative. Socially appropriate. The patient was not holding interview well because of shortness of breath. This promotion writer did not want to overwhelm the patient with all questions and the patient was explained about medications which will be started Ativan as well as Seroquel. The patient also is aware that this promotion writer will recommend Valium to be only as needed. This promotion writer explained the patient about the rationale of that decision. The patient was in agreement with that. PHYSICAL EXAMINATION: VITAL SIGNS: Pulse is 70, blood pressure 97/69, oxygen saturation is 99. MEDICATIONS: Reviewed. Aspirin, Pulmicort, Coreg, Valium 5 mg at the nighttime as needed, Lasix, heparin, Humalog, labetalol, Zanaflex, levalbuterol, Ativan will be started at 0.5 mg IV push 3 times a day as needed for anxiety and restlessness, Pulmicort, Protonix, Seroquel will be given 12.5 mg at the nighttime for delirium stage. LABORATORY DATA: Labs reviewed. Coagulation reviewed. Troponin 0.15. HISTORY: Reviewed. There is no history of mental illness. MENTAL STATUS EXAMINATION: As this promotion writer described above. The patient is alert, short of breath. Intermittent eye contact. Says only yes or no answers. The patient was not able to hold conservation. Mood described, "not so good. I don't feel alright." Affect was constricted. Thought processes, the patient process seems to be confused. Thought content, the patient asked the nurse to turn off the radio, but there is no radio in the room. This promotion writer thinks that the patient has some hallucinations. Insight and judgment seems to be improving. Impulses are unpredictable. IMPRESSION: Most likely the patient is in delirium stage due to multiple medical issues. Please see medical team notes for more detailed information. PLAN: P.r.n. Ativan for restless behavior. We will start with IV push, Valium only as needed at the nighttime. The patient was on that medication before. Seroquel 12.5 mg at the night time for confusion and episodes of psychosis. Discussed with nursing staff. Dr. Farooq will follow up this patient tomorrow. Should they have any questions give me a call back. Thank you very much for letting me participate in care of your patient. Shira Rojas MD
[2017-08-07] MEDS: Levalbuterol 0.63 MG/3 ML Inhal Soln UD IH SCH ×5 (02:58→20:44)
[2017-08-07] MEDS: Pantoprazole 40 mg EC Tab PO SCH (05:48)
[2017-08-07 06:04] LABS: BASO # 0.01 K/mm3 (0.0-2.0); BASO % 0.2 % (0.0-3.0); EOS % 0.9 % (1.5-5.0); GRAN # 3.46 (1.4-6.5); GRAN % 80.7 % (50.0-68.0); HEMATOCRIT 30.7 % (42.0-52.0); LYMPH # 0.5 (1.2-3.4); LYMPH % 10.7 % (22.0-35.0); MEAN CELL VOLUME 96.5 fl (80.0-105.0); MEAN CORPUSCULAR HEMOGLOBIN 29.6 pg (25.0-35.0); MEAN CORPUSCULAR HGB CONC 30.6 g/dl (31.0-37.0); MEAN PLATELET VOLUME 11.4 fl (7.0-11.0); MONO # 0.3 (0.1-0.6); MONO % 7.5 % (1.0-6.0); RED CELL DISTRIBUTION WIDTH 18.4 % (11.5-14.5); WHITE BLOOD COUNT 4.3 10^3/ul (4.5-11.0)
[2017-08-07 06:25] LABS: ALB/GLOB RATIO 0.9 (1.1-1.8); CALCIUM 8.4 mg/dL (8.4-10.5); MAGNESIUM 1.9 mg/dL (1.7-2.2); PHOSPHOROUS 4.8 mg/dL (2.5-4.5); POTASSIUM 3.8 mmol/L (3.6-5.0); TOTAL PROTEIN 7.1 g/dL (5.8-8.3)
[2017-08-07 06:30] LABS: TROPONIN I 0.1 ng/mL
[2017-08-07 06:36] LABS: ARTERIAL BLOOD GAS HCO3 45.9 mmol/L (21-28); ARTERIAL BLOOD GAS O2 CAPACITY 13.1 mL/dl (16-24); ARTERIAL BLOOD GAS O2 CONTENT 12.9 ML/dl (15-23); ARTERIAL BLOOD GAS PH 7.45 (7.35-7.45); CARBOXYHEMOGLOBIN 2.7 % (0.5-1.5); HHB 1.4 % (0-5); METHEMOGLOBIN 0.9 % (0.0-3.0)
[2017-08-07] MEDS: Insulin Lispro (humaLOG) LOW Coverage SC SCH ×4 (08:13→23:30)
[2017-08-07] MEDS: Milrinone 20mg/100ml D5W 100 ML IV PRN (08:14)
[2017-08-07] MEDS: Budesonide 0.5 mg/2 ml Inhal Susp UD IH SCH ×2 (08:17→19:45)
--- NOTE | 2017-08-07 10:13 | RAD ---
HISTORY: f/u COMPARISON: 08/06/2017 FINDINGS: LUNGS: There has been no significant interval change in severe pulmonary venous congestion, atelectasis/ scarring in the mid lungs and left lower lobe consolidation. No active pulmonary disease. PLEURA: No change in left pleural effusion and suspect small right pleural effusion. No pneumothorax. CARDIOVASCULAR: The cardiomediastinal silhouette is stable with prominent central vasculature. Status post CABG. There is stable position of a left-sided permanent pacing device. OSSEOUS STRUCTURES: No significant abnormalities. VISUALIZED UPPER ABDOMEN: Normal. OTHER FINDINGS: None. IMPRESSION: No change in severe pulmonary venous congestion, small right and moderate left pleural effusion and left lower lobe consolidation.
--- NOTE | 2017-08-07 14:44 | CON ---
DATE: HISTORY OF PRESENT ILLNESS: The patient is an 81-year-old male with multiple medical issues who is being followed by Psychiatry in CCU for mental status changes likely secondary to delirium. I reviewed Dr. Rojas noted and recent notes from the unit and met with the patient at bedside. Compared to presentation yesterday per Dr. Rojas notes, the patient's mentation seemed to be improving. He is aware that he is at [facility] that is 07/2017 and he is in the ICU unit. The patient reports that he is depressed; however, he is not hopeless, he is hopeful about the future. He is unhappy about hospitalization and would like to be discharged, but willing to comply with treatment recommendations. Focus is not good, but fair during the course of our interview, responses are brief, but coherent and relevant questioning and consistent. He denies hallucinations, denies suicidal thoughts, and delusions were not elicited. The patient has been in fair control on the unit and does not appear to be hallucinated or responsiveness to the internal stimuli during the course of our conversation. The patient reports that he is tolerating current medications and he slept well last night. Presently, he denies any pain and he is demonstrating improved insight and judgement. OBJECTIVE: Vital signs and laboratory data were reviewed by this provider. MEDICATIONS: Current psychiatric medications include Valium 5 mg at bedtime p.r.n.,Ativan 0.5 mg IV t.i.d. p.r.n., and Seroquel 12.5 mg p.o. at bedtime scheduled. IMPRESSION: Improving delirium, quite possibly still delirious, but in the at this point. RECOMMENDATIONS: At this time, we will continue with current treatment and plan. There is no acute indication to change current medications. Psychiatry will follow up with the patient every two days to monitor his progress; however, please feel to request earlier consult if necessary. Based on presentation today, the patient does not appear to meet criteria for any psychiatric hospitalization or detainment if he should be medically cleared. Reshma Farooq MD [facility] # [id number]
--- NOTE | 2017-08-07 15:51 | PN ---
PULMONARY PROGRESS NOTE DATE: 08/07/2017 SUBJECTIVE: The patient is lying flat in bed and feeling much better. He is complaining of some dryness in his nose. He states that he has no respiratory distress. He denies any complaints at this time. At the bedside is his whom we have discussed his case. She is very happy and states that he looks better and better on a daily basis. PHYSICAL EXAMINATION: GENERAL: He is resting comfortably, no problems according to him and hoping to get better soon. VITAL SIGNS: He is afebrile 98.6, respiratory rate 18, pulse 72, blood pressure 140/70, and O2 sat is 97% on nasal cannula. HEENT: Normocephalic and atraumatic. NECK: Supple. No JVD. No lymphadenopathy. No mass. No bruit. CARDIOVASCULAR: Regular rhythm, S1 and S2. Gallop persists. Systolic ejection murmur at the lower left sternal border. LUNGS: Decreased breath sounds throughout. Some rales still persists that a third of the way up. No rhonchi or wheezing. Decreased breath sounds at the bases. ABDOMEN: Soft. Bowel sounds normoactive without mass, guarding, or rebound. No organomegaly. EXTREMITIES: Reveal no clubbing, cyanosis, or edema. There is no Homans sign. SKIN: No rash or excoriation. NEUROLOGIC: No focal findings, awake, alert, and oriented. Motor, sensory, and coordination normal. Deep tendon reflexes normal. Babinski downgoing. LABORATORY DATA: New laboratory studies show a x-ray with pulmonary vascular congestion, atelectasis, loculated pleural effusion at the left base. No additional changes are noted. CLINICAL IMPRESSION: 1. Acute heart failure. 2. Respiratory insufficiency. 3. Left chronic, left pleural effusion. 4. Atelectasis. 5. Rule out underlying mass at left base. 6. Renal insufficiency. 7. Anemia. 8. Coronary artery disease. 9. Chronic obstructive pulmonary disease. PLAN: Continue diuresis and further cardiovascular intervention. As soon as the patient is feeling better, he will require a further evaluation of the left lower lobe. A repeat CAT scan after diuresis is suggested. He may need further imaging if there is no complete improvement. I do not have old films for comparison. He has BiPAP in his room, which he is using when asleep. Follow up blood gases are pending. Bronchospasm seems to be cared for appropriately, decrease steroids as tolerated, complete pulmonary intervention as required, and we will follow closely with you and decide on the need for further intervention based on clinical status. Kota Sun MD
[2017-08-07 16:38] LABS: IRON 46 ug/dL (45-180)
[2017-08-07] MEDS ORDERED: metOLazone 5 MG TAB PO STA (19:12)
--- NOTE | 2017-08-07 21:22 | PN ---
DATE: 08/07/2017 SUBJECTIVE: The patient is seen in the ICU. He is lying in bed. He is agitated and aggravated as per the nursing staff. He wants to go home. Currently, he seems calm. He is responsive. He denies any chest pain. He denies any palpitations. He denies any abdominal pain. His breathing seems comfortable. He remains on Primacor drip at 0.2 mcg per kilogram per minute. He is also receiving IV Lasix. He has diuresed very well with combination of Primacor and Lasix. PHYSICAL EXAMINATION: GENERAL: Elderly male lying in bed. VITAL SIGNS: Blood pressure 102/49, heart rate 68, respiratory rate 14, and temperature 96.7. HEENT: Normocephalic, atraumatic, positive pallor. NECK: Supple, no JVD. LUNGS: Bilateral equal air entry, no rales. CARDIAC: S1 and S2, regular rate and rhythm, no murmur, no rub. ABDOMEN: Obese, distended, soft, nontender, bowel sounds present. EXTREMITIES: A 1+ pitting edema of the lower extremities. INTAKE AND OUTPUT: 580/3750. LABORATORY DATA: WBC 4, hemoglobin 9.4, hematocrit 30.7, and platelets 169. Sodium 143, potassium 3.8, chloride 87, CO2 of 43, BUN 70, creatinine 1.6, and glucose 98. Calcium 8.4, phosphorus 4.8, magnesium 1.9. Troponin 0.1. Albumin 3.3. Chest x-ray, severe pulmonary venous congestion, small right and moderate left pleural effusion and left lower lobe consolidation. CURRENT MEDICATIONS: Ativan, Coreg 12.5 b.i.d., Ecotrin, insulin, heparin 5000 subcu q.12 hours, Lasix 40 IV daily, Primacor IV, Protonix, and Pulmicort. ASSESSMENT AND PLAN: 1. Acute kidney injury, superimposed on chronic kidney disease, stage II? 2. Cardiorenal syndrome. 3. Congestive heart failure, cardiomyopathy, coronary artery disease, aortic valve replacement, mitral valve replacement. 4. Severe anemia. 5. Acute coronary syndrome. 6. Hypokalemia. 7. Dementia. 8. ?Pneumonia. PLAN: 1. Continue Primacor IV. 2. Continue IV Lasix. 3. The patient seems to be diuresing well. 4. Monitor electrolytes closely. 5. Caution not to over-diurese. 6. Monitor H and H closely, the patient received one unit of blood, check iron, TIBC, and ferritin. IV iron if still iron deficient. Case discussed with ICU staff. Case discussed with ICU nurses. More than 35 minutes spent on the care of this critically ill patient. Yaneth Mckeon MD
--- NOTE | 2017-08-07 22:02 | CP.PCM.CON ---
History of Present Illness - History of Present Illness History of Present Illness: Mr. Rutledge is well known to me from office. He presented with respiratory distress. he has CHF. he also has COPD. he has chronic anemia and occult GI bleed. Stool positive for occult blood in office. he gets IV iron and procrit as out patient. Denies chest pain . sever anemia with Hb 7.9. Review of Systems - Review of Systems Systems not reviewed;Unavailable: Unstable Vital Signs, Respiratory Distress - Constitutional Constitutional: Daytime Sleepiness, Fatigue, Weakness - EENT Eyes: absent: As Per HPI, Blind Spots, Blurred Vision, Change in Vision, Decreased Night Vision, Diplopia, Discharge, Dry Eye, Exophthalmos, Floaters, Irritation, Itchy Eyes, Loss of Peripheral Vision, Pain, Photophobia, Requires Corrective Lenses, Sees Flashes, Spots in Vision, Tunnel Vision, Other Visual Disturbances, Loss of Vision, Other Ears: absent: As Per HPI, Decreased Hearing, Ear Discharge, Ear Pain, Tinnitus, Abnormal Hearing, Disequilibrium, Dizziness, Other Nose/Mouth/Throat: absent: As Per HPI, Epistaxis, Nasal Congestion, Nasal Discharge, Nasal Obstruction, Nasal Trauma, Nose Pain, Post Nasal Drip, Sinus Pain, Sinus Pressure, Bleeding Gums, Change in Voice, Dental Pain, Dry Mouth, Dysphagia, Halitosis, Hoarsness, Lip Swelling, Mouth Lesions, Mouth Pain, Odynophagia, Sore Throat, Throat Swelling, Tongue Swelling, Facial Pain, Neck Pain, Neck Mass, Other - Cardiovascular Cardiovascular: Dyspnea, Rapid Heart Rate - Respiratory Respiratory: Dyspnea - Genitourinary Genitourinary: As Per HPI - Musculoskeletal Musculoskeletal: Muscle Weakness - Integumentary Integumentary: absent: As Per HPI, Acne, Alopecia, Bleeding Lesions, Change in Hair, Change in Nails, Change in Pigmentation, Changing Lesions, Dry Skin, Erythema, Furuncle, Hirsutism, Lesions, New Lesions, Non-Healing Lesions, Photosensitivity, Pruritus, Rash, Skin Pain, Skin Ulcer, Sores, Striae, Swelling , Unusual Bruising, Wounds, Jaundice, Other - Neurological Neurological: absent: As Per HPI, Abnormal Gait, Abnormal Hearing, Abnormal Movements, Abnormal Speech, Behavioral Changes, Burning Sensations, Confusion, Convulsions, Disequilibrium, Dizziness, Numbness, Focal Weakness, Frequent Falls , Headaches, Lack of Coordination, Loss of Vision, Memory Loss, Paresthesias, Radicular Pain, Restless Legs, Sensory Deficit, Syncope, Tingling, Tremor, Vertigo, Weakness, Other Visual Disturbances, Other - Psychiatric Psychiatric: Anxiety, Behavioral Changes - Endocrine Endocrine: absent: As Per HPI, Change in Body Appearance, Change in Libido, Cold Intolorance, Deepening of Voice, Excessive Sweating, Fatigue, Flushing, Heat Intolorance, Increase in Ring/Shoe/Hat Size, Palpitations, Polydipsia, Polyphagia, Polyuria, Other - Hematologic/Lymphatic Hematologic: As Per HPI Past Patient History - Infectious Disease Hx of Infectious Diseases: None - Tetanus Immunizations Tetanus Immunization: Unknown - Past Medical History & Family History Past Medical History?: Yes Past Family History: Reviewed and not pertinent - Past Social History Smoking Status: cigars - CARDIAC Hx Cardiac Disorders: (mi) Hx Congestive Heart Failure: Yes Hx Hypertension: Yes Hx Internal Defibrillator: Yes (2011) Hx Pacemaker: Yes (2011) Hx Peripheral Edema: Yes (+2 pitting bld) Hx Peripheral Vascular Disease: Yes Other/Comment: mitral valve repair, quadruple bypass at [facility] - PULMONARY Hx Bronchitis: Yes Hx Pneumonia: Yes Hx Sleep Apnea: Yes (cpap at home) - NEUROLOGICAL Hx Neurological Disorder: No - HEENT Hx HEENT Problems: Yes (sinusitis, eyeglasses) - RENAL Hx Kidney Stones: Yes - ENDOCRINE/METABOLIC Hx Diabetes Mellitus Type 2: Yes - HEMATOLOGICAL/ONCOLOGICAL Hx Anemia: Yes (iron deficiency, tx by dr clemens) Other/Comment: venofer iv, pt denies blood transfusions - INTEGUMENTARY Other/Comment: b/l arms skin discolorations - MUSCULOSKELETAL/RHEUMATOLOGICAL Hx Falls: No - GASTROINTESTINAL Other/Comment: GI BLEED - PSYCHIATRIC Hx Emotional Abuse: No Hx Physical Abuse: No Hx Substance Use: No - SURGICAL HISTORY Hx Coronary Artery Bypass Graft: Yes (QUADRUPLE) - ANESTHESIA Hx Anesthesia Reactions: No Meds Allergies/Adverse Reactions: Allergies Allergy/AdvReac Type Severity Reaction Status Date / Time No Known Allergies Allergy Verified 08/05/17 14:08 - Medications Medications: Current Medications Aspirin (Ecotrin) 81 mg PO DAILY [facility] Last Admin: 08/07/17 09:58 Dose: 81 mg Budesonide (Pulmicort Respules) 0.5 mg IH [id number] [facility] Last Admin: 08/07/17 19:45 Dose: 0.5 mg Carvedilol (Coreg) 12.5 mg PO BID [facility] Last Admin: 08/07/17 17:02 Dose: 12.5 mg Diazepam (Valium) 5 mg PO HS PRN; Protocol PRN Reason: Insomnia Last Admin: 08/05/17 19:58 Dose: 5 mg Furosemide (Lasix) 40 mg IV BID [facility] Last Admin: 08/07/17 19:38 Dose: 40 mg Heparin Sodium (Porcine) (Heparin) 5,000 units SC Q12 [facility] PRN Reason: Protocol Last Admin: 08/07/17 21:14 Dose: 5,000 units Milrinone Lactate/Dextrose (Primacor 20mg/100ml D5w) 100 mls @ 4.736 mls/hr IV .Q21H7M PRN; Protocol; 0.2 MCG/KG/MIN PRN Reason: TITRATE PER MD ORDER Last Admin: 08/07/17 08:14 Dose: 0.2 mcg/kg/min, 4.736 mls/hr Insulin Human Lispro (Humalog Low) 0 units SC ACHS [facility] PRN Reason: Protocol Last Admin: 08/07/17 18:46 Dose: Not Given Levalbuterol HCl (Xopenex) 0.63 mg IH [id number] [facility] Last Admin: 08/07/17 20:44 Dose: 0.63 mg Levalbuterol HCl (Xopenex) 0.63 mg IH Q2 PRN PRN Reason: Shortness of Breath Lorazepam (Ativan) 0.5 mg IVP TID PRN; Protocol PRN Reason: agitation/anxiety Last Admin: 08/06/17 14:39 Dose: 0.5 mg Pantoprazole Sodium (Protonix Ec Tab) 40 mg PO 0600 [facility] Last Admin: 08/07/17 05:48 Dose: 40 mg Quetiapine Fumarate (Seroquel) 12.5 mg PO HS [facility] PRN Reason: Protocol Last Admin: 08/07/17 21:13 Dose: 12.5 mg Physical Exam - Constitutional Appears: In Acute Distress - Head Exam Head Exam: ATRAUMATIC, NORMAL INSPECTION, NORMOCEPHALIC - Eye Exam Eye Exam: Normal appearance Pupil Exam: NORMAL ACCOMODATION - ENT Exam ENT Exam: Mucous Membranes Moist, Normal Exam - Neck Exam Neck exam: Positive for: Normal Inspection - Respiratory Exam Respiratory Exam: Respiratory Distress - Cardiovascular Exam Cardiovascular Exam: Tachycardia, +S1, +S2 - GI/Abdominal Exam GI & Abdominal Exam: Normal Bowel Sounds, Soft - Extremities Exam Extremities exam: Positive for: normal inspection - Back Exam Back exam: NORMAL INSPECTION - Neurological Exam Neurological exam: Alert, CN II-XII Intact, Oriented x3 - Psychiatric Exam Psychiatric exam: Agitated - Skin Skin Exam: Normal Color, Warm Results - Vital Signs Recent Vital Signs: Last Vital Signs Temp 97.1 F L 08/07/17 16:00 Pulse 65 08/07/17 21:00 Resp 29 H 08/07/17 21:00 BP 98/55 L 08/07/17 21:00 Pulse Ox 100 08/07/17 21:00 - Labs Result Diagrams: 08/07/17 05:00 08/07/17 05:00 Labs: Laboratory Results - last 24 hr 08/07/17 08/07/17 08/07/17 05:00 05:00 05:00 WBC 4.3 L RBC 3.18 L Hgb 9.4 L Hct 30.7 L MCV 96.5 MCH 29.6 MCHC 30.6 L RDW 18.4 H Plt Count 169 MPV 11.4 H Gran % 80.7 H Lymph % (Auto) 10.7 L [place] % (Auto) 7.5 H Eos % (Auto) 0.9 L Baso % (Auto) 0.2 Gran # 3.46 Lymph # 0.5 L [place] # 0.3 Eos # 0.0 Baso # 0.01 pCO2 pO2 HCO3 ABG pH ABG Total CO2 ABG O2 Saturation ABG O2 Content ABG Base Excess ABG Hemoglobin ABG Carboxyhemoglobin POC ABG HHb (Measured) ABG Methemoglobin ABG O2 Capacity Hgb O2 Saturation FiO2 Sodium 143 Potassium 3.8 Chloride 87 L Carbon Dioxide 43 H Anion Gap 17 BUN 70 H Creatinine 1.6 H Est GFR ( Amer) 51 Est GFR (Non-Af Amer) 42 POC Glucose (mg/dL) Random Glucose 98 Calcium 8.4 Phosphorus 4.8 H Magnesium 1.9 Iron TIBC % Saturation Ferritin 355.0 Total Bilirubin 1.0 AST 30 ALT 29 Alkaline Phosphatase 215 H D Lactate Dehydrogenase 446 Total Creatine Kinase 20 L Troponin I 0.10 D Total Protein 7.1 Albumin 3.3 Globulin 3.8 Albumin/Globulin Ratio 0.9 L 08/07/17 08/07/17 08/07/17 05:00 06:15 08:07 WBC RBC Hgb Hct MCV MCH MCHC RDW Plt Count MPV Gran % Lymph % (Auto) [place] % (Auto) Eos % (Auto) Baso % (Auto) Gran # Lymph # [place] # Eos # Baso # pCO2 66 H pO2 83.0 HCO3 45.9 H* ABG pH 7.45 ABG Total CO2 47.9 H ABG O2 Saturation 98.5 H ABG O2 Content 12.9 L ABG Base Excess 19.2 H ABG Hemoglobin 9.6 L ABG Carboxyhemoglobin 2.7 H POC ABG HHb (Measured) 1.4 ABG Methemoglobin 0.9 ABG O2 Capacity 13.1 L Hgb O2 Saturation 95.0 FiO2 40.0 Sodium Potassium Chloride Carbon Dioxide Anion Gap BUN Creatinine Est GFR ( Amer) Est GFR (Non-Af Amer) POC Glucose (mg/dL) 116 H Random Glucose Calcium Phosphorus Magnesium Iron 46 TIBC 221 L % Saturation 21 Ferritin Total Bilirubin AST ALT Alkaline Phosphatase Lactate Dehydrogenase Total Creatine Kinase Troponin I Total Protein Albumin Globulin Albumin/Globulin Ratio 08/07/17 08/07/17 12:10 17:21 WBC RBC Hgb Hct MCV MCH MCHC RDW Plt Count MPV Gran % Lymph % (Auto) [place] % (Auto) Eos % (Auto) Baso % (Auto) Gran # Lymph # [place] # Eos # Baso # pCO2 pO2 HCO3 ABG pH ABG Total CO2 ABG O2 Saturation ABG O2 Content ABG Base Excess ABG Hemoglobin ABG Carboxyhemoglobin POC ABG HHb (Measured) ABG Methemoglobin ABG O2 Capacity Hgb O2 Saturation FiO2 Sodium Potassium Chloride Carbon Dioxide Anion Gap BUN Creatinine Est GFR ( Amer) Est GFR (Non-Af Amer) POC Glucose (mg/dL) 134 H 122 H Random Glucose Calcium Phosphorus Magnesium Iron TIBC % Saturation Ferritin Total Bilirubin AST ALT Alkaline Phosphatase Lactate Dehydrogenase Total Creatine Kinase Troponin I Total Protein Albumin Globulin Albumin/Globulin Ratio Assessment & Plan - Assessment and Plan (Free Text) Assessment: 1. Severe Anemia 2. CHF, exacerbation 3. COPD, respiratory distress 4. CAD 5. CKD plan : 2 units of PRBC, transfuse each unit over 3 hrs. Will monitor Hb/hct closely. procrit 20,000 units weekly for CKD stage III. CHF exacerbation -cardiology consulted. On BIPAP for respiratory distress. agitated. does not want to be in hospital. Discuss with patient about his health status and critical condition. discussed with family, , grand son. Discussed with ICU resident, staff nurse. Thank you Dr. Gamez for allowing us to participate in his care. - Date & Time Date: 08/05/17 Time: 09:00
--- NOTE | 2017-08-07 22:14 | PN ---
DATE: SUBJECTIVE: The patient is currently in the ICU room 129 bed 6. There have been no acute events overnight and the patient is lying in bed continuously asking me to discharge him. PHYSICAL EXAMINATION GENERAL: Text. VITAL SIGNS: Temperature 97.1, pulse 70, blood pressure 115/61, respiratory rate of 18 with an O2 saturation of 97% on a nasal cannula. HEENT: Negative. NECK: Supple. There is full range of motion. LUNGS: Clear to auscultation and percussion bilaterally. HEART: Shows a regular rate and rhythm. ABDOMEN: Benign. NEUROLOGICALLY: There are no focal motor deficits. LABORATORY DATA: WBC 4.3, hemoglobin and hematocrit 9.4 and 30.7. SMA-23 shows BUN is 70 and creatinine of 1.6. Random glucose of 122. PROBLEM LIST: 1. Pneumonia. 2. Anemia. 3. Acute renal failure. 4. Prerenal azotemia. 5. Coronary artery atherosclerosis. 6. Congestive heart failure. PLAN: Continue current management. Bob Gamez MD
--- NOTE | 2017-08-07 22:14 | CP.PCM.PN ---
Subjective - Date & Time of Evaluation Date of Evaluation: 08/06/17 Time of Evaluation: 10:00 - Subjective Subjective: He is agitated. he is insisting to go home. He is oriented to time , place , person. Hb/Hct stable. s/p 2 units of PRBC yesterday. Respirtaory distress. he cannot finish a sentence. Was on BIPAP for few hours earlier today. Renal functions improved. cardiac enzymes normal. No chest pain. Objective - Vital Signs/Intake and Output Vital Signs (last 24 hours): Temp Pulse Resp BP Pulse Ox 97.1 F L 65 29 H 98/55 L 100 08/07/17 16:00 08/07/17 21:00 08/07/17 21:00 08/07/17 21:00 08/07/17 21:00 Intake and Output: 08/07/17 08/08/17 18:59 06:59 Intake Total 935 Output Total 1150 Balance -215 - Medications Medications: Current Medications Aspirin (Ecotrin) 81 mg PO DAILY [facility] Last Admin: 08/07/17 09:58 Dose: 81 mg Budesonide (Pulmicort Respules) 0.5 mg IH [id number] [facility] Last Admin: 08/07/17 19:45 Dose: 0.5 mg Carvedilol (Coreg) 12.5 mg PO BID [facility] Last Admin: 08/07/17 17:02 Dose: 12.5 mg Diazepam (Valium) 5 mg PO HS PRN; Protocol PRN Reason: Insomnia Last Admin: 08/05/17 19:58 Dose: 5 mg Furosemide (Lasix) 40 mg IV BID [facility] Last Admin: 08/07/17 19:38 Dose: 40 mg Heparin Sodium (Porcine) (Heparin) 5,000 units SC Q12 [facility] PRN Reason: Protocol Last Admin: 08/07/17 21:14 Dose: 5,000 units Milrinone Lactate/Dextrose (Primacor 20mg/100ml D5w) 100 mls @ 4.736 mls/hr IV .Q21H7M PRN; Protocol; 0.2 MCG/KG/MIN PRN Reason: TITRATE PER MD ORDER Last Admin: 08/07/17 08:14 Dose: 0.2 mcg/kg/min, 4.736 mls/hr Insulin Human Lispro (Humalog Low) 0 units SC ACHS [facility] PRN Reason: Protocol Last Admin: 08/07/17 18:46 Dose: Not Given Levalbuterol HCl (Xopenex) 0.63 mg IH [id number] [facility] Last Admin: 08/07/17 20:44 Dose: 0.63 mg Levalbuterol HCl (Xopenex) 0.63 mg IH Q2 PRN PRN Reason: Shortness of Breath Lorazepam (Ativan) 0.5 mg IVP TID PRN; Protocol PRN Reason: agitation/anxiety Last Admin: 08/06/17 14:39 Dose: 0.5 mg Pantoprazole Sodium (Protonix Ec Tab) 40 mg PO 0600 [facility] Last Admin: 08/07/17 05:48 Dose: 40 mg Quetiapine Fumarate (Seroquel) 12.5 mg PO HS [facility] PRN Reason: Protocol Last Admin: 08/07/17 21:13 Dose: 12.5 mg - Labs Labs: 08/07/17 05:00 08/07/17 05:00 PT 12.0 Seconds (9.9-11.8) H 08/04/17 22:39 INR 1.11 (0.93-1.08) H 08/04/17 22:39 APTT 30.7 Seconds (23.7-30.8) 08/04/17 22:39 - Constitutional Appears: In Acute Distress - Head Exam Head Exam: ATRAUMATIC, NORMAL INSPECTION, NORMOCEPHALIC - Eye Exam Eye Exam: Normal appearance - ENT Exam ENT Exam: Mucous Membranes Moist - Neck Exam Neck Exam: Normal Inspection - Respiratory Exam Respiratory Exam: Respiratory Distress - Cardiovascular Exam Cardiovascular Exam: Tachycardia, +S1, +S2 - GI/Abdominal Exam GI & Abdominal Exam: Soft, Normal Bowel Sounds - Extremities Exam Extremities Exam: Normal Inspection - Back Exam Back Exam: NORMAL INSPECTION - Neurological Exam Neurological Exam: Normal Gait, Oriented x3 - Psychiatric Exam Psychiatric exam: Agitated - Skin Skin Exam: Normal Color, Warm Assessment and Plan - Assessment and Plan (Free Text) Assessment: 1. Severe anemia : related to iron deficiency, chronic renal disease. s/p 2 units of PRBC, Hb/hct stable now. will continue to follow closely. 2. CKD : creatinine declined since admission. 3. Respiratory distress : on BIPAP. Pulmonary following. 4. CV :CHF, respiratory distress. 5. Agitated : insisting to go home . Psych consult requested. , grand son bedside. Discussed his condition with them. Thank you Dr. Gamez for allowing us to participate in his care.
--- NOTE | 2017-08-08 00:34 | PN ---
DATE: 08/07/2017 LOCATION: The patient in CCU #129, bed #6. REASON FOR CONSULTATION: Followup with congestive heart failure, CABG, mitral valve repair, bioprosthetic aortic valve replacement limited with acute obstructive uropathy, acute kidney injury, and having shortness of breath. SUBJECTIVE: The patient still complaining of shortness of breath. Denies chest pain or palpitation. PHYSICAL EXAMINATION VITAL SIGNS: Blood pressure is 115/61, respirations 18, pulse 68. The patient is afebrile. HEENT: Head is normocephalic. Eyes, pupils normal. Conjunctivae, slightly pale. NECK: JVP low. Carotid equal. Thorax, AP diameter normal. CARDIOVASCULAR: S1, S2. Systolic murmur. No rub. LUNGS: Bilateral rales in the lower half of the lung. ABDOMEN: Soft. No tenderness. No organomegaly. Bowel sounds normal. EXTREMITIES: No clubbing, no cyanosis. LABORATORY DATA: WBC 4.3, hemoglobin 9.4, hematocrit 30.7, platelets 169. Sodium 143, potassium 3.8, BUN 70, creatinine 1.6, sugar 122, phosphorus 4.8, magnesium 1.9. Troponin 0.10. Total protein 7.1, albumin 3.3. Chest x-ray reviewed, still consistent with congestive heart failure. DIAGNOSES: Acute kidney injury, obstructive uropathy, status post Noel catheter; congestive heart failure; coronary artery disease, status post coronary artery bypass surgery; history of bioprosthetic aortic valve replacement and mitral valve repair; positive troponin, may be related to elevated BUN, which can give false rise to the troponin, but underlying non-ST elevation myocardial infarction cannot be ruled out. History of cardiomyopathy. Echo was done on 08/05/2017 which showed LV ejection fraction of 40%, moderate to severe apical anterior wall hypokinesis, bioprosthetic aortic valve in place functioning normal. Status post mitral valve repair, seem to be functioning normal. Moderate tricuspid regurg, RVSP 78, suggestive of [id number] pulmonary hypertension. PLAN: This patient is complaining of shortness of breath. He had bilateral rales and chest x-ray consistent with significant CHF, we will increase Lasix to 40 IV b.i.d., and we will give one dose of Zaroxolyn 5 mg today, and we will repeat SMA-7 in the morning due to abnormal kidney function. The patient is not a candidate for cardiac catheterization because he will end up on dialysis. We will continue to give carvedilol 12.5 b.i.d., aspirin 81 mg daily, heparin 5000 units subcu q. 12 hours, insulin as ordered. The patient also on Primacor drip, Protonix 40 mg daily, Seroquel 12.5 mg p.o. at bedtime, Xopenex hand nebulizer therapy, and we will follow with you. Tara Jose MD
[2017-08-08] MEDS: Levalbuterol 0.63 MG/3 ML Inhal Soln UD IH SCH ×4 (01:32→19:34)
[2017-08-08] MEDS: Milrinone 20mg/100ml D5W 100 ML IV PRN (04:15)
[2017-08-08] MEDS: Pantoprazole 40 mg EC Tab PO SCH (05:40)
[2017-08-08 05:57] LABS: ARTERIAL BLOOD GAS HCO3 53.5 mmol/L (21-28); ARTERIAL BLOOD GAS O2 CAPACITY 12.2 mL/dl (16-24); ARTERIAL BLOOD GAS O2 CONTENT 11.8 ML/dl (15-23); ARTERIAL BLOOD GAS PH 7.51 (7.35-7.45); ARTERIAL BLOOD HGB O2 SAT 91.7 % (95.0-98.0); CARBOXYHEMOGLOBIN 3.6 % (0.5-1.5); HHB 3.4 % (0-5); METHEMOGLOBIN 1.3 % (0.0-3.0)
[2017-08-08 06:02] LABS: BLOOD UREA NITROGEN 69 mg/dL (7-21); CALCIUM 8.4 mg/dL (8.4-10.5); CHLORIDE 87 mmol/L (98-107); GFR AFRICAN-AMERICAN > 60; GLUCOSE,RANDOM 111 mg/dL (70-110); MAGNESIUM 1.8 mg/dL (1.7-2.2); PHOSPHOROUS 3.5 mg/dL (2.5-4.5); POTASSIUM 3.4 mmol/L (3.6-5.0); SODIUM 142 mmol/L (132-148)
[2017-08-08 06:09] LABS: TROPONIN I 0.09 ng/mL
[2017-08-08 06:13] LABS: CARBON DIOXIDE 45 mmol/L (21-33)
[2017-08-08] MEDS: Budesonide 0.5 mg/2 ml Inhal Susp UD IH SCH ×2 (08:20→19:35)
--- NOTE | 2017-08-08 08:37 | RAD ---
HISTORY: f/u COMPARISON: 08/07/2017. FINDINGS: LUNGS: There is interval worsening with development of confluent airspace disease in the right lung the and left perihilar region. PLEURA: Persistent moderate left pleural effusion, no pneumothorax apparent. CARDIOVASCULAR: Stable cardiomegaly. Status post CABG. Stable position of left-sided pacemaker. OSSEOUS STRUCTURES: No significant abnormalities. VISUALIZED UPPER ABDOMEN: Normal. OTHER FINDINGS: None. IMPRESSION: Interval worsening with development of presumable pulmonary edema. Persistent moderate left pleural effusion.
[2017-08-08] MEDS: Insulin Lispro (humaLOG) LOW Coverage SC SCH ×4 (09:38→22:55)
[2017-08-08] MEDS ORDERED: Potassium Chloride 20 mEq ER Tab PO ONE (11:18)
--- NOTE | 2017-08-08 12:00 | PN ---
SUBJECTIVE: The patient was seen and examined at bedside in the CCU. No acute events overnight. He remains afebrile and hemodynamically stable. This morning his sole complaint is that of a non-productive cough and he is requesting Tessalon pearls but otherwise he offers no complaints. OBJECTIVE: VITAL SIGNS: Temperature 97.6, pulse 68, blood pressure 123/62, respiratory rate 20, oxygen saturation 97% on 3 L nasal cannula. GENERAL: Frail elderly man, appearing older than his stated age, lying in bed, in no apparent distress. HEENT: PERRL. EOMI. No scleral icterus. Mild conjunctival pallor is noted. NECK: Supple with full range of motion. No JVD. LUNGS: Decreased breath sounds throughout with few scattered wheeze. CARDIOVASCULAR: Regular rate and rhythm. Normal S1 and S2. Grade 2/6 systolic murmur to right upper sternal border. Grade 2/6 murmur to left lower sternal border. AICD in place to left anterior chest wall. ABDOMEN: Normoactive bowel sounds. Soft, nontender, nondistended. EXTREMITIES: No edema. NEUROLOGIC: Awake, alert, and oriented x3. No focal motor deficits. LABORATORY DATA: Morning labs are pending. ASSESSMENT: The patient is an 81-year-old man with multiple medical comorbidities including CAD s/p [place] s/p CABG, ischemic cardiomyopathy s/p AICD, history of AVR/MVR and iron-deficiency anemia (on monthly IV iron infusions) who presented to [facility] with a several day history of weakness, malaise and exertional dyspnea and who was admitted to the CCU for management of acute on chronic systolic heart failure exacerbation, acute on chronic kidney disease and symptomatic anemia. PLAN: 1. Acute on chronic systolic heart failure exacerbation, resolving. The patient is diuresed satisfactorily since admission and today he appears clinically euvolemic. Input from Dr. Leach of cardiology noted and appreciated. Continue with Coreg 12.5 mg p.o. b.i.d., Lasix 40 mg IV b.i.d. and Zaroxolyn. The patient furthermore remains on a milrinone infusion. 2. Ischemic cardiomyopathy, status post AICD. Continue with care as per #1. 3. CAD, status post [place], status post CABG. Continue with care as above as well as aspirin 81 mg p.o. daily and Lipitor 20 mg p.o. daily. 4. Acute on chronic kidney disease. Input from Dr. Mckeon noted and greatly appreciated. Labs demonstrate a favorably trending renal function with a creatinine of 1.3 this morning. Continue with care as per Dr. Mckeon. 5. [id number] diabetes mellitus. Continue with low-dose insulin sliding scale for coverage. We will hold metformin in the setting of acute on chronic kidney injury; however, now that renal function is trending favorably, we will resume oral glycemic agents as needed. 6. Hypertension. Blood pressure controlled. Continue with current medications. 7. Iron-deficiency anemia. Input from Dr. Herrera noted and greatly appreciated. Continue with care as per Dr. Herrera. CODE STATUS: FULL CODE. Ronnie Gamez MD MTDD
--- NOTE | 2017-08-08 15:35 | PN ---
DATE: 08/08/2017 PULMONARY PROGRESS NOTE SUBJECTIVE: The patient is lying in bed, sleepy this morning. He was more agitated in the cardboard cutter hours and the nurse reports giving him extra dose of sedative. He has still not woken up completely from this and although he is arousable and answers questions, he is very sleepy. He is in no pain and looks sleepier, but more comfortable than yesterday. PHYSICAL EXAMINATION: GENERAL: He is resting comfortably, but lethargic. VITAL SIGNS: Stable. He is afebrile, respiratory rate is 18, pulse 70, blood pressure 138/74, and O2 sat 97% to 98% on nasal cannula. HEENT: Normocephalic and atraumatic. NECK: Supple. No JVD. No lymphadenopathy. No mass. No bruit. CARDIOVASCULAR: Regular rhythm, S1 and S2 without gallop or rubs. Systolic ejection murmur at the lower left sternal border. LUNGS: Global decrease in breath sounds. Some rales still persist in lower lobe region. No rhonchi or wheezes appreciated. ABDOMEN: Soft. Bowel sounds normoactive without mass, guarding, rebound or organomegaly. EXTREMITIES: Reveal no clubbing, cyanosis, or edema. There is no Homans sign. SKIN: No rash or excoriation. NEUROLOGIC: No focal findings. Deep tendon reflexes normal. Babinski downgoing. LABORATORY DATA: Laboratory test shows an x-ray that shows some clinical improvement with pulmonary vascular congestion and atelectasis remain, loculated effusion looks slightly enlarged. IMPRESSION: 1. Heart failure. 2. Respiratory insufficiency. 3. Chronic left pleural effusion. 4. Atelectasis. 5. Underlying mass cannot be excluded at this time. 6. Renal insufficiency. 7. Coronary artery disease. 9. Chronic obstructive pulmonary disease. PLAN: Continue the same medications. Try not to sedate if possible, this is not good for the patient's mental status and did not allow him to expectorate all the secretions that are present in his lungs. Continue to use the BiPAP at night when he is sleeping or resting. Blood gas is pending at this time. Close evaluation of his respiratory status remains in order. We will continue to follow as necessary and decide on the need for further intervention based on his current status. Kota Sun MD
--- NOTE | 2017-08-08 17:02 | PN ---
DATE: 08/08/2017 SUBJECTIVE: The patient is seen sitting in bed in the ICU. Family members are at bedside. He appears comfortable. He denies any pain. PHYSICAL EXAMINATION: GENERAL EXAMINATION: Elderly male sitting in bed. VITAL SIGNS: Blood pressure 123/69, heart rate 78, respiratory rate 21, temperature 97.6. HEENT: Normocephalic, atraumatic. NECK: Supple, no JVD. LUNGS: Bilateral equal entry, decreased breath sounds at bases. I CARDIAC: S1 and S2, regular rate and rhythm, no murmur, no rub. ABDOMEN: Obese, distended, soft, nontender, bowel sounds present. EXTREMITIES: 1+ pitting edema of the lower extremities. INTAKE AND OUTPUT: 1535/2150. LABORATORY DATA: WBC 4, hemoglobin 9.4, hematocrit 30.7, platelets 169. Sodium 142, potassium 3.4, chloride 87, CO2 of 45, BUN 69, creatinine 1.3, glucose 111, calcium 8.4, phosphorus 3.5, magnesium 1.8. CURRENT MEDICATIONS: Ativan, Coreg 12.5 b.i.d., aspirin, heparin, insulin, potassium 20 mEq b.i.d., Lasix 40 IV q. 12, Lipitor, Primacor, Protonix, Seroquel, Tessalon, Valium, Xopenex. ASSESSMENT: 1. Acute kidney injury superimposed on chronic kidney disease, stage II, resolving. 2. Cardiorenal syndrome, type 1. 3. Severe congestive heart failure, coronary artery disease, coronary artery bypass grafting, aortic valve replacement mitral valve replacement, automatic implantable cardioverter-defibrillator. 4. Dementia. 5. Anemia. PLAN: 1. Renal function is improving nicely, cautioned not to over diurese. 2. Recommend changing Lasix to oral quickly. 3. Continue Primacor. 4. Physical therapy. 5. Avoid nephrotoxins. Yaneth Mckeon MD
--- NOTE | 2017-08-08 17:14 | PN ---
DATE: 08/08/2017 REASON FOR CONSULTATION: Followup congestive heart failure, coronary artery disease, mitral valve repair, bioprosthetic aortic valve replacement, admitted with acute obstructive uropathy, acute kidney injury, and decompensated congestive heart failure. SUBJECTIVE: The patient denies any chest pain, shortness of breath, or an palpitation. He wanted to discontinue IV line. OBJECTIVE: GENERAL: Not in apparent distress, awake, and alert. VITAL SIGNS: As follows, temperature afebrile, heart rate 68, blood pressure 123/62. HEENT: PERRLA. Extraocular muscles intact. NECK: Supple. No carotid bruit or thyromegaly. CHEST: Clear to auscultation. HEART: S1 and S2 regular. ABDOMEN: Soft. EXTREMITIES: Clubbing and cyanosis negative. LABORATORY DATA: Blood workup as follows: WBC 4, hemoglobin 9.4, hematocrit 30.7, and platelet count 169. Chemistry shows sodium 140, potassium 3.4, chloride 87, carbon dioxide 45, anion gap of 13, BUN 69, and creatinine 1.2. IMPRESSION: Acute decompensated congestive heart failure, acute kidney injury secondary to obstructive uropathy. On admission, the patient has a very severely elevated BUN and creatinine, has started on milrinone and the patient is on Lasix now, history of coronary artery bypass surgery, history of aortic valve replacement, bioprosthetic history of mitral valve replacement. Last echo 08/05/2017, ejection fraction 40%, zsvqsthm-nq-octaks pericardial effusion, rzrbnwdn-jc-evshab apical hypokinesis, bioprosthetic aortic valve replacement, status post mitral valve repair, moderate tricuspid regurgitation and systolic pressure of 78, and ghamtgtl-xx-tyjdzb pulmonary hypertension. RECOMMENDATIONS: Zaroxolyn added by Dr. Jose. Continue Lasix, increase to twice. Continue milrinone. Continue metolazone. Monitor electrolytes closely. Repeat chest x-ray in the morning. We will supplement potassium and he will start 40 from tomorrow. Monitor electrolytes closely and follow up electrolytes. We will increase the K-Dur to 20 b.i.d., we will give 40 now. Repeat the electrolytes in the morning. On admission, the patient troponin positive secondary to acute kidney injury. Now the troponin is trending down most likely secondary to acute kidney injury. For now, continue aggressive medical treatment. We will repeat the blood workup in the morning including magnesium also. We will follow with you. Thank you Dr. Gamez for providing us the opportunity in taking care of Aamir Johnson. Tara Leach MD cc: Dr. Gamez.
[2017-08-08] MEDS: Potassium Chloride 20 mEq ER Tab PO SCH (18:07)
[2017-08-08] MEDS: Levalbuterol 0.63 MG/3 ML Inhal Soln UD IH PRN (18:13)
[2017-08-09] MEDS: Levalbuterol 0.63 MG/3 ML Inhal Soln UD IH SCH ×4 (02:00→20:10)
[2017-08-09] MEDS: Milrinone 20mg/100ml D5W 100 ML IV PRN ×2 (02:07→20:27)
[2017-08-09 05:58] LABS: BASO # 0.01 K/mm3 (0.0-2.0); BASO % 0.3 % (0.0-3.0); EOS # 0.1 (0.0-0.7); EOS % 1.3 % (1.5-5.0); GRAN # 3.01 (1.4-6.5); GRAN % 77.7 % (50.0-68.0); HEMATOCRIT 29.4 % (42.0-52.0); LYMPH # 0.4 (1.2-3.4); LYMPH % 11.1 % (22.0-35.0); MEAN CELL VOLUME 96.1 fl (80.0-105.0); MEAN CORPUSCULAR HEMOGLOBIN 29.7 pg (25.0-35.0); MEAN PLATELET VOLUME 10.2 fl (7.0-11.0); MONO # 0.4 (0.1-0.6); MONO % 9.6 % (1.0-6.0); RED CELL DISTRIBUTION WIDTH 17.9 % (11.5-14.5); WHITE BLOOD COUNT 3.9 10^3/ul (4.5-11.0)
[2017-08-09] MEDS: Pantoprazole 40 mg EC Tab PO SCH (06:00)
[2017-08-09 06:10] LABS: ARTERIAL BLOOD GAS O2 CAPACITY 12.5 mL/dl (16-24); ARTERIAL BLOOD GAS O2 CONTENT 12.2 ML/dl (15-23); ARTERIAL BLOOD HGB O2 SAT 93.5 % (95.0-98.0); HHB 2.6 % (0-5)
[2017-08-09 06:17] LABS: ALB/GLOB RATIO 0.9 (1.1-1.8); ALKALINE PHOSPHATASE 248 U/L (38-126); ALT/SGPT 28 U/L (7-56); AST/SGOT 40 U/L (17-59); BILIRUBIN,TOTAL 1.1 mg/dL (0.2-1.3); BLOOD UREA NITROGEN 57 mg/dL (7-21); CALCIUM 8.9 mg/dL (8.4-10.5); CHLORIDE 88 mmol/L (98-107); GFR AFRICAN-AMERICAN > 60; GLUCOSE,RANDOM 108 mg/dL (70-110); MAGNESIUM 1.7 mg/dL (1.7-2.2); PHOSPHOROUS 3.1 mg/dL (2.5-4.5); POTASSIUM 3.7 mmol/L (3.6-5.0); SODIUM 144 mmol/L (132-148); TOTAL PROTEIN 7.2 g/dL (5.8-8.3)
[2017-08-09 06:29] LABS: TROPONIN I 0.08 ng/mL
[2017-08-09 06:38] LABS: ARTERIAL BLOOD GAS HCO3 52.2 mmol/L (21-28)
[2017-08-09 06:39] LABS: CARBON DIOXIDE 50 mmol/L (21-33)
[2017-08-09] MEDS: Budesonide 0.5 mg/2 ml Inhal Susp UD IH SCH ×2 (08:07→20:03)
--- NOTE | 2017-08-09 08:17 | RAD ---
HISTORY: f/u COMPARISON: Portal chest 08/08/2017. FINDINGS: Multilead maker/implanted defibrillator again identified in position as well as prosthetic cardiac valve. LUNGS: Lateral pleural pulmonary venous congestion pattern appears to be diminishing with underlying atelectasis or pneumonia not excluded at the mid to inferior right lung zones bilaterally. PLEURA: A large left pleural effusion persists with mild right pleural effusion remaining. No pneumothorax bilaterally. CARDIOVASCULAR: Cardiac silhouette appears stable. Please see additional details in lung section above. OSSEOUS STRUCTURES: No significant abnormalities. VISUALIZED UPPER ABDOMEN: Normal. OTHER FINDINGS: None. IMPRESSION: Improved likely CHF. Clinically correlate further. Underlying atelectasis pneumonia is difficult to exclude bilaterally. Large left pleural effusion unchanged with a small right pleural effusion again evident.
[2017-08-09] MEDS: Insulin Lispro (humaLOG) LOW Coverage SC SCH ×4 (08:23→22:15)
--- NOTE | 2017-08-09 10:07 | PN ---
DATE: 08/09/2017(615am--705am) SUBJECTIVE: The patient appears comfortable this morning. He is not short of breath at rest. PHYSICAL EXAMINATION: VITAL SIGNS: Temperature is 97.9, pulse is 73, respirations 20, blood pressure 132/65. Oxygen saturation on nasal cannula is 96%. HEENT: Normocephalic, atraumatic. No JVD. CARDIOVASCULAR: Systolic ejection murmur at the lower left sternal border. Positive S3 gallop. LUNGS: Decreased breath sounds at the bases with crackles. Much less rhonchi. No wheezing. EXTREMITIES: Positive for edema. No cyanosis, no clubbing. Calves are nontender to palpation. GASTROINTESTINAL: Abdomen is soft, nontender and nondistended. Bowel sounds are positive. SKIN: No acute rash. NEUROLOGIC: Exam limited at the present time. PERTINENT LABORATORY DATA: Chest x-ray was done this morning and reviewed. There is less pulmonary vascular congestive changes seen. There is also a small decrease in the left pleural effusion. Arterial blood gas was done on nasal cannula. Results are: pH 7.50, pCO2 of 67, pO2 of 69. IMPRESSION: 1. Acute congestive heart failure. 2. Chronic obstructive pulmonary disease. 3. Respiratory failure. 4. Chronic left pleural effusion. 5. Renal insufficiency. 6. Anemia. 7. Coronary artery disease. PLAN: The patient appears comfortable this morning. He is not short of breath at rest. Oxygen saturation on nasal cannula is now 96%. I did review the case with the nurse at length. The nurse stated that the patient had a pretty good night. The nurse also said that the patient is putting out adequate urine on the current regimen. I would continue the treatment for congestive heart failure as per cardiology. Input by Gwendolyn Jose/Catrina is noted. I did review the chest x-ray as above. The x-ray is improved from the initial films. I have also reviewed the arterial blood gas. A mixed disorder is present. However, there is resolution of the respiratory acidosis. On physical exam, there is less bronchospasm noted. I will continue the current nebulizer treatments and inhaled steroids for now. Repeat a.m. labs are pending. Clinical status of the patient is certainly improved - compared to the initial presentation. However, the future status/prognosis for this patient remains very guarded at best. I will discuss the above with the entire ICU team the next few moments. I will also discuss the above with Dr. Gamez. Alex Rothman MD MONICA
--- NOTE | 2017-08-09 11:12 | PN ---
SUBJECTIVE: The patient was seen and examined at bedside in the CCU. No acute events overnight however earlier this morning the patient was noted to be quite agitated, attempting to get out of bed and pulling on his IVs. He was re- directed by his nursing staff and was administered Ativan with resolution of his agitation. This morning he appears confused in the sense that he does not know where he is, but otherwise denies any complains. OBJECTIVE: VITAL SIGNS: Temperature 98.8, pulse 72, blood pressure 123/66, respiratory rate 22, oxygen saturation 96% on 2 L nasal cannula. GENERAL: Frail elderly man, appearing older than his stated age, lying in bed, in no apparent distress. HEENT: PERRL. EOMI. No scleral icterus. Mild conjunctival pallor is noted. NECK: No JVD. LUNGS: Decreased breath sounds throughout with few scattered wheeze. CARDIOVASCULAR: Regular rate and rhythm. Normal S1 and S2. Grade 2/6 systolic murmur to right upper sternal border. Grade 2/6 murmur to left lower sternal border. AICD in place to left anterior chest wall. ABDOMEN: Normoactive bowel sounds, soft, nontender, nondistended. EXTREMITIES: No edema. NEUROLOGIC: Awake, alert, and oriented to person. No focal motor deficits. LABORATORY DATA: WBC 3.9 with 77% neutrophils, hemoglobin 9, hematocrit 29, and platelets 134. Sodium 144, potassium 3.7, chloride 88, bicarbonate 50, BUN 57, creatinine 1.2, glucose 127. ASSESSMENT: The patient is an 81-year-old man with multiple medical comorbidities including CAD s/p AK s/p CABG, ischemic cardiomyopathy s/p AICD, history of AVR/MVR and iron-deficiency anemia (on monthly iron infusions) who presented to [facility] with a several day history of weakness, malaise and exertional dyspnea and who was admitted to the CCU for management of acute-on chronic systolic heart failure exacerbation, zwvai-td-jjxyfje kidney disease and symptomatic anemia. PLAN: 1. Fyfji-vg-aupmgid systolic heart failure exacerbation, resolving. The patient is diuresed nicely since admission and presently does not appear volume overloaded, continue with current care as per Dr. Leach. We will consider lowering Lasix as labs demonstrate the patient to be slightly alkalotic, which may represent contraction alkalosis from over diuresis. 2. Ischemic cardiomyopathy, status post AICD. Continue with care as per #1. 3. CAD, status post AK, status post CABG. Continue with care as above. 4. Lwsau-sg-uvhebwb kidney disease. Input from Dr. Mckeon noted and appreciated. Renal function continues to trend favorably. 5. Wfi-fkoilud-kjcietbck diabetes mellitus. Continue with low-dose insulin sliding scale for coverage. 6. Hypertension. Blood pressure controlled. Continue with current medications. 7. Iron-deficiency anemia. Input from Dr. Herrera noted and greatly appreciated. Continue with care as per Dr. Herrera. 8. Prophylaxis: Continue with Protonix for GI prophylaxis and Venodyne for DVT prophylaxis. CODE STATUS: FULL CODE. Ronnie Gamez MD MTDBerny
--- NOTE | 2017-08-09 11:24 | PN ---
SUBJECTIVE: The patient is an 81-year-old male with multiple medical issues including coronary artery disease, CHF, NC, hypertension, type 2 diabetes, anemia, GI bleeds. The patient was admitted in CCU for evaluation of generalized weakness, dizziness, and dyspnea. Also, the patient was found to have NC. Psych consult was called for evaluation of change in mental status. The patient was seen initially on Wednesday. Over the weekend, Dr. Farooq was seeing this patient. The patient was followed up today. The patient still has episodes of confusion. During the interview, the patient was not making much sense, seems to be hallucinating, restless as per nursing report. The patient pulled IV line, also Noel catheter, was restless, but no aggression towards people. The patient was not able to participate in interview due to confusion. PHYSICAL EXAMINATION: VITAL SIGNS: Thin, pulse is 72, respiration 22, oxygen saturation 92. MEDICATIONS: Reviewed. The patient is on aspirin; Lipitor; Pulmicort; Coreg; Valium 5 mg at the nighttime for insomnia; Lasix; heparin; Humalog; and Ativan 0.5 mg IV push 3 times a day as needed for anxiety and restless behavior, for past 24 hours, the patient got only 2 doses. The patient is on Primacor, Protonix, potassium chloride, and Seroquel 12.5 mg at the nighttime scheduled which will be increased to 25 mg at the nighttime. MENTAL STATUS EXAMINATION: The patient appears to be restless. Intermittent eye contact. The patient seems to be actively hallucinating. Speech was incoherent, word salad. Thought process seems to be confused and disoriented thought content. The patient is actively hallucinating, restless. The patient was not able to answer if he does have any thoughts of harming himself or others. Insight and judgement: Very impaired. Impulses: Unpredictable. IMPRESSION: Most likely, the patient is in delirium state, which seems to be hyperactive. The patient has multiple medical issues with severe anemia, chronic kidney disease, respiratory distress, congestive heart failure, and status post myocardial infarction. PLAN: Continue current management. Ativan as needed for restlessness and agitation. Seroquel will be increased to 25 mg at the nighttime. Should you have any questions, give me a call back. We will follow up and advise accordingly. Notes reviewed. Discussed with the nursing staff. Thank you very much for letting me to participate in the care of your patient. Should you have any questions, give me a call back. Shira Rojas MD
[2017-08-09] MEDS: Potassium Chloride 20 mEq ER Tab PO SCH ×2 (12:09→17:55)
[2017-08-09] MEDS ORDERED: Potassium Chloride 20 mEq ER Tab PO ONE (17:09)
--- NOTE | 2017-08-09 19:58 | PN ---
DATE: 08/09/2017 SUBJECTIVE: The patient is seen lying in bed. He is awake, he is alert, comfortable. He does not appear to be in any kind of distress. As per the nursing staff, he was agitated earlier. He received some Ativan. PHYSICAL EXAMINATION: GENERAL: Elderly male, lying in bed. VITAL SIGNS: Blood pressure 134/64, heart rate 70, respiratory rate 30, temperature 97.9. HEENT: Normocephalic, atraumatic. NECK: Supple, no JVD. LUNGS: Bilateral equal entry, bilateral equal expansion. CARDIAC: S1, S2, regular rate and rhythm, no murmur, no rub. ABDOMEN: Obese, distended, soft, nontender, bowel sounds present. EXTREMITIES: Trace lower extremity edema. INTAKE AND OUTPUT: 260/2350. LABORATORY DATA: WBC 3.9, hemoglobin 9, hematocrit 29.4, platelets 134. Sodium 144, potassium 3.7, chloride 88, CO2 50, BUN 57, creatinine 1.2, glucose 108, calcium 8.9, phosphorus 3.1, magnesium 1.7. CURRENT MEDICATIONS: Ativan, Coreg 12.5 b.i.d., aspirin, heparin, insulin, potassium, Lasix 40 IV b.i.d., Lipitor, milrinone, Protonix, Pulmicort, Seroquel, Tessalon, Valium, Xopenex. ASSESSMENT: 1. Resolving acute kidney injury. 2. Cardiorenal syndrome. 3. Congestive heart failure. 4. Severe anemia. 5. Hyponatremia. 6. Hypokalemia. PLAN: 1. Change Lasix to p.o. 2. Caution not to over diurese. 3. Push p.o. fluids. 4. Continue to replace potassium. 5. Monitor H and H. 6. Iron stores appear adequate. Yaneth Mckeon MD cc:
--- NOTE | 2017-08-09 23:43 | CP.PCM.PN ---
Subjective - Date & Time of Evaluation Date of Evaluation: 08/09/17 Time of Evaluation: 11:00 - Subjective Subjective: Shortness of breath decreased. He is disoriented. Oriented to person, not to place or time. Hb stable. s/p 2 units of PRBC on admission. Renal functions improved. Objective - Vital Signs/Intake and Output Vital Signs (last 24 hours): Temp Pulse Resp BP Pulse Ox 97.9 F 71 30 H 140/60 98 08/09/17 05:00 08/09/17 22:44 08/09/17 17:53 08/09/17 20:27 08/09/17 17:53 Intake and Output: 08/09/17 08/10/17 18:59 06:59 Intake Total 100 Balance 100 - Medications Medications: Current Medications Aspirin (Ecotrin) 81 mg PO DAILY [facility] Last Admin: 08/09/17 12:10 Dose: 81 mg Atorvastatin Calcium (Lipitor) 20 mg PO DIN [facility] Last Admin: 08/09/17 17:53 Dose: 20 mg Benzonatate (Tessalon Perles) 100 mg PO Q6 PRN PRN Reason: Cough Last Admin: 08/08/17 10:05 Dose: 100 mg Budesonide (Pulmicort Respules) 0.5 mg IH [id number] [facility] Last Admin: 08/09/17 20:03 Dose: 0.5 mg Carvedilol (Coreg) 12.5 mg PO BID [facility] Last Admin: 08/09/17 17:55 Dose: 12.5 mg Diazepam (Valium) 5 mg PO HS PRN; Protocol PRN Reason: Insomnia Last Admin: 08/08/17 19:54 Dose: 5 mg Furosemide (Lasix) 40 mg PO BID [facility] Last Admin: 08/09/17 17:53 Dose: 40 mg Heparin Sodium (Porcine) (Heparin) 5,000 units SC Q12 [facility] PRN Reason: Protocol Last Admin: 08/09/17 21:04 Dose: 5,000 units Milrinone Lactate/Dextrose (Primacor 20mg/100ml D5w) 100 mls @ 4.736 mls/hr IV .Q21H7M PRN; Protocol; 0.2 MCG/KG/MIN PRN Reason: TITRATE PER MD ORDER Last Admin: 08/09/17 20:27 Dose: 0.2 mcg/kg/min, 4.736 mls/hr Insulin Human Lispro (Humalog Low) 0 units SC ACHS CLARA PRN Reason: Protocol Last Admin: 08/09/17 22:15 Dose: Not Given Levalbuterol HCl (Xopenex) 0.63 mg IH [id number] [facility]ARA Last Admin: 08/09/17 20:10 Dose: 0.63 mg Levalbuterol HCl (Xopenex) 0.63 mg IH Q2 PRN PRN Reason: Shortness of Breath Last Admin: 08/08/17 18:13 Dose: 0.63 mg Lorazepam (Ativan) 0.5 mg IVP TID PRN; Protocol PRN Reason: agitation/anxiety Last Admin: 08/09/17 20:28 Dose: 0.5 mg Pantoprazole Sodium (Protonix Ec Tab) 40 mg PO 0600 [facility] Last Admin: 08/09/17 06:00 Dose: 40 mg Potassium Chloride (K-Dur 20 Meq Er Tab) 20 meq PO BID [facility] Last Admin: 08/09/17 17:55 Dose: 20 meq Quetiapine Fumarate (Seroquel) 25 mg PO HS [facility]ARA PRN Reason: Protocol Last Admin: 08/09/17 21:06 Dose: Not Given - Labs Labs: 08/09/17 05:30 08/09/17 05:30 PT 12.0 Seconds (9.9-11.8) H 08/04/17 22:39 INR 1.11 (0.93-1.08) H 08/04/17 22:39 APTT 30.7 Seconds (23.7-30.8) 08/04/17 22:39 - Constitutional Appears: Chronically Ill - Head Exam Head Exam: ATRAUMATIC, NORMAL INSPECTION, NORMOCEPHALIC - Eye Exam Eye Exam: absent: Conjunctival injection, EOMI, Normal appearance, Nystagmus, Periorbital swelling, Periorbital tenderness, PERRL, Scleral icterus - ENT Exam ENT Exam: Mucous Membranes Dry - Neck Exam Neck Exam: absent: Full ROM, Lymphadenopathy, Meningismus, Normal Inspection, Tenderness, Thyromegaly - Respiratory Exam Respiratory Exam: Respiratory Distress - Cardiovascular Exam Cardiovascular Exam: Tachycardia, +S1, +S2 - GI/Abdominal Exam GI & Abdominal Exam: Soft, Normal Bowel Sounds - Extremities Exam Extremities Exam: Normal Inspection - Back Exam Back Exam: NORMAL INSPECTION - Neurological Exam Neurological Exam: Altered, Awake - Skin Skin Exam: Pallor, Warm Assessment and Plan - Assessment and Plan (Free Text) Assessment: 1. CHF 2. Acute renal insufficiency 3. CKD stage III/IV 4. Chronic anemia 5. Chronic Occult GI bleed 6. respiratory distress Plan : CHF improved. Respiratory distress, on BIPAP. Anemia - multifactorial- CKD, occult GI bleed, iron deficiency. Hb/Hct stable. procrit 20,000 units tomorrow for anemia related to CKD. Confusion, disoriented. Psych following. thank you Dr. English for allowing us to participate in his care.
--- NOTE | 2017-08-10 01:37 | PN ---
DATE: 08/09/2017 REASON FOR CONSULTATION: Followup congestive heart failure, coronary artery disease, mitral valve repair, bioprosthetic aortic valve, admitted with acute obstructive uropathy, kidney injury, decompensated congestive heart failure, npkxp-fy-qekjgfe systolic dysfunction. SUBJECTIVE: The patient denies any chest pain, shortness of breath, or any palpitation. OBJECTIVE: GENERAL: Lying flat in the bed. VITAL SIGNS: As follows, temperature afebrile, heart rate 70 and blood pressure 142/65. HEENT: PERRLA. Extraocular muscles intact. NECK: Supple. No carotid bruit or thyromegaly. CHEST: Clear to auscultation. HEART: S1 and S2, regular. ABDOMEN: Soft. EXTREMITIES: Clubbing and cyanosis negative. LABORATORY DATA: Blood workup as follows; WBC 3.9, hemoglobin 9.9, hematocrit 29.6, and platelet count 134. Chemistry shows sodium 144, potassium 3.7, chloride 88, carbon dioxide , anion gap of 10, BUN , and creatinine 1.2. IMPRESSION: Acute kidney injury, borderline troponin positive secondary to acute kidney injury, cardiomyopathy, status post aortic valve bioprosthesis, status post mitral valve repair, pulmonary edema, severely elevated BUN and creatinine, on milrinone, status post coronary artery bypass graft surgery. CAT scan shows moderate left pleural effusion, trace pericardial effusion noted. Ejection fraction 40%, bioprosthetic normal functioning valve, mitral valve repair, normal function, valve area 1.8 cm sq., moderate tricuspid regurgitation and systolic pressure of 78. RECOMMENDATIONS: Continue milrinone for pulmonary hypertension as well as get the diuresis. Renal function significantly improved. The patient is a 2 L negative fluid balance. On admission, the patient had creatinine at 3.4 and BUN 82, now creatinine is within the normal limit. We will follow with you. Continue diuretics. Continue milrinone. Continue supplemental electrolytes as needed. Continue Coreg for control of blood pressure. Depending upon the diuresis, we will cut down dose of Lasix from tomorrow. We will review the x-ray done today, report improved CHF. Large left pleural effusion unchanged with his small right pleural effusion. Repeat the blood workup in the morning. We will supplement potassium. We will repeat the lab in the morning and supplement electrolytes. Check also magnesium and phosphorous level. We will start cutting down the Lasix from tomorrow depending upon the response. Thank you Dr. Ronnie Gamez for providing us the opportunity in taking care of your patient, Alex Zavaleta. We will follow with you. Tara Leach MD
[2017-08-10] MEDS: Levalbuterol 0.63 MG/3 ML Inhal Soln UD IH SCH ×4 (02:24→19:20)
[2017-08-10] MEDS: Pantoprazole 40 mg EC Tab PO SCH (05:22)
[2017-08-10 05:54] LABS: BASO # 0.01 K/mm3 (0.0-2.0); BASO % 0.2 % (0.0-3.0); EOS % 0.4 % (1.5-5.0); GRAN # 4.6 (1.4-6.5); GRAN % 85.9 % (50.0-68.0); HEMATOCRIT 29.7 % (42.0-52.0); LYMPH # 0.4 (1.2-3.4); LYMPH % 7.9 % (22.0-35.0); MEAN CELL VOLUME 98.3 fl (80.0-105.0); MEAN CORPUSCULAR HEMOGLOBIN 29.5 pg (25.0-35.0); MEAN PLATELET VOLUME 10.2 fl (7.0-11.0); MONO # 0.3 (0.1-0.6); MONO % 5.6 % (1.0-6.0); RED CELL DISTRIBUTION WIDTH 17.6 % (11.5-14.5); WHITE BLOOD COUNT 5.4 10^3/ul (4.5-11.0)
[2017-08-10 06:47] LABS: ARTERIAL BLOOD GAS O2 CAPACITY 12.6 mL/dl (16-24); ARTERIAL BLOOD GAS O2 CONTENT 12.5 ML/dl (15-23); ARTERIAL BLOOD GAS PH 7.36 (7.35-7.45); ARTERIAL BLOOD HGB O2 SAT 95.4 % (95.0-98.0); CARBOXYHEMOGLOBIN 2.9 % (0.5-1.5); HHB 0.5 % (0-5); METHEMOGLOBIN 1.3 % (0.0-3.0)
[2017-08-10 06:51] LABS: ARTERIAL BLOOD GAS HCO3 51.4 mmol/L (21-28)
[2017-08-10] MEDS: Budesonide 0.5 mg/2 ml Inhal Susp UD IH SCH ×2 (07:58→19:21)
[2017-08-10 08:03] LABS: ALKALINE PHOSPHATASE 248 U/L (38-126); ALT/SGPT 29 U/L (7-56); AST/SGOT 36 U/L (17-59); BILIRUBIN,TOTAL 1.1 mg/dL (0.2-1.3); BLOOD UREA NITROGEN 55 mg/dL (7-21); CHLORIDE 91 mmol/L (98-107); GFR AFRICAN-AMERICAN > 60; GLUCOSE,RANDOM 113 mg/dL (70-110); MAGNESIUM 1.7 mg/dL (1.7-2.2); PHOSPHOROUS 4.3 mg/dL (2.5-4.5); POTASSIUM 4.2 mmol/L (3.6-5.0); SODIUM 148 mmol/L (132-148); TOTAL PROTEIN 7.1 g/dL (5.8-8.3)
[2017-08-10 08:14] LABS: CARBON DIOXIDE 45 mmol/L (21-33)
[2017-08-10] MEDS: Insulin Lispro (humaLOG) LOW Coverage SC SCH ×4 (08:23→21:47)
[2017-08-10] MEDS: Potassium Chloride 20 mEq ER Tab PO SCH ×2 (10:02→18:12)
--- NOTE | 2017-08-10 10:37 | PN ---
SUBJECTIVE: The patient was seen and examined at beside on the telemetry gonzales. No acute events overnight. He remains afebrile and hemodynamically stable status post transfer out of the CCU. The patient is noted to be somewhat confused this morning but easily redirectable and overall offers no complaints. OBJECTIVE: VITAL SIGNS: Temperature 97.5, pulse 71, blood pressure 145/70, respiratory rate 20, oxygen saturation 100% on BiPAP. GENERAL: Frail elderly man appearing his stated age, lying in bed, in no apparent distress. HEENT: PERRL. EOMI. No scleral icterus. Conjunctival pallor is noted. NECK: No JVD. LUNGS: Decreased breath sounds at the bases with few scattered rhonchi. CARDIOVASCULAR: Regular rate and rhythm. Normal S1 and S2. Grade 2/6 ANGEL to RUSB, Grade 2/6 murmur to LLSB, AICD in place to left anterior chest wall. ABDOMEN: Normoactive bowel sounds. Soft, nontender, nondistended. EXTREMITIES: No edema. NEUROLOGIC: Awake, alert, and oriented to person. Moving all extremities. LABORATORY DATA: WBC 5.4 with 86% neutrophils, hemoglobin 8.9, hematocrit 29 and platelets 147. Sodium 148, potassium 4.2, chloride 91, bicarbonate 45, BUN 55, creatinine 1 and glucose 113. ASSESSMENT: The patient is an 81-year-old man with multiple medical comorbidities including CAD s/p DE s/p CABG, ischemic cardiomyopathy s/p AICD, history of AVR/MVR and iron deficiency anemia (on monthly iron infusions) who presented to the [facility] with a 7-day history of weakness, malaise and exertional dyspnea and who was admitted to the CCU for management of acute on chronic systolic heart failure exacerbation, acute on chronic kidney disease and symptomatic anemia and who is now status post transfer to the telemetry gonzales. PLAN: 1. Acute on chronic systolic heart failure exacerbation, resolving. The patient has lost 15 pounds since admission and is at his dry weight. Input from Dr. Leach noted and greatly appreciated and Lasix has been changed to Lasix 40 mg p.o. b.i.d. The patient remains on milrinone drip, which will be tapered over the next 24 to 48 hours. 2. Ischemic cardiomyopathy, status post AICD. Continue care as per #1. 3. CAD s/p DE s/p CABG. Continue with Aspirin 81 mg p.o. daily, Lipitor 20 mg p.o. daily and Coreg 12.5 mg p.o. b.i.d. 4. Acute on chronic kidney disease. Input from Dr. Mckeon noted and appreciated and renal functioning is trending favorably. Lasix has been changed to Lasix 40 mg p.o. b.i.d. 5. Non-insulin dependent diabetes mellitus. Continue with low-dose insulin sliding scale for coverage. 6. Hypertension. Blood pressure controlled. Continue with current medications. 7. Iron deficiency anemia. Input from Dr. Herrera noted and appreciated and the patient remains on Procrit. H and H remained stable. 8. Prophylaxis. Continue with Protonix for GI prophylaxis and heparin for DVT prophylaxis. CODE STATUS: FULL CODE. Ronnie Gamez MD [facility]
--- NOTE | 2017-08-10 11:49 | PN ---
DATE: FOLLOWUP NOTE SUBJECTIVE: The patient was downgraded to the second floor. The patient was seen and examined today at the morning time, the patient presented much better. The patient was observed eating by himself, still appears to be confused. There is no option to have meaningful conversation. The patient does not know where he is, does not know what is the day today. We tried to review the notes from the medical staff and discussed with the nursing staff. The patient did not require Seroquel yesterday or Valium, was able to sleep himself. The patient's last dose of Valium was on . Ativan was given IV push yesterday 0.5 mg at the nighttime and probably that is why the patient was able to fall asleep and to stay asleep. Labs reviewed. Hemoglobin and hematocrit 8.9 and 29.7. Chemistry reviewed. The patient was seen by multiple specialists, export freight specialist as well as renal team notes reviewed. MENTAL STATUS EXAMINATION: The patient presented to be alert, but confused. There is no option to have meaningful conversation, intermittent eye contact. The patient was calm. There is no psychomotor agitation or retardation. The patient reported that he feels better. Affect was constricted. Mood described "I feel better." Thought process is disorganized. Thought content, the patient denies visual, auditory or tactile hallucinations, but appears to be very confused. Poor insight and judgement. Impulses are still unpredictable. IMPRESSION: Most likely, the patient was in hyperactive delirium, which is improving. The patient has multiple medical issues including coronary artery disease, myocardial infarction, status post coronary artery bypass graft, ischemic cardiomyopathy, status post automatic implantable cardioverter-defibrillator, history of aortic valve replacement and iron-deficiency anemia. The patient was admitted for generalized weakness as well as acute on chronic kidney disease and symptomatic anemia. The patient was downgraded to the second floor. PLAN: Continue current management. Seroquel will be given only as needed. Please avoid longer-acting benzodiazepine, Valium should be on hold, as needed Ativan IV push, minimal dose twice a day. The patient is improving. This typewriters functional tester will sign off from this case. Thank you very much for letting me to participate in the care of your patient. Should you have any questions, give me a call back. The patient pose no imminent danger to self or others. Family will need to be involved, physical therapy evaluation. Shira Rojas MD
[2017-08-10] MEDS: Levalbuterol 0.63 MG/3 ML Inhal Soln UD IH PRN (12:15)
--- NOTE | 2017-08-10 12:46 | PN ---
SUBJECTIVE: The patient appears comfortable this morning. He is not short of breath at rest. OBJECTIVE: VITALS: Temperature 97.5, pulse 71, respirations 18/20, blood pressure 145/70. Oxygen saturation on nasal cannula is 97%. HEENT: Normocephalic, atraumatic. No JVD. CARDIOVASCULAR: Systolic ejection murmur at the lower left sternal border. Positive S3 gallop. LUNGS: Decreased breath sounds at the bases with crackles. Less rhonchi. No wheezing. EXTREMITIES: Positive for edema. No cyanosis. No clubbing. Calves are nontender to palpation. GASTROINTESTINAL: Abdomen is soft, nontender and nondistended. Bowel sounds are positive. SKIN: No acute rash. NEUROLOGIC: Exam limited at the present time. IMPRESSION: 1. Acute congestive heart failure. 2. Chronic obstructive pulmonary disease. 3. Respiratory failure. 4. Chronic left pleural effusion. 5. Renal insufficiency. 6. Anemia. 7. Coronary artery disease. PLAN: The patient appears much more comfortable this morning. He is not short of breath at rest. He states he is feeling much better overall. Oxygen saturation on nasal cannula is now 97%. I did note the last chest x-ray findings in yesterday's assessment. It was improved from the initial x-rays. On physical exam, there is less bronchospasm noted. I will continue the current nebulizer treatments and inhaled steroids for now. I would continue with the treatment for congestive heart failure as per cardiology. Input by renal and cardiology are noted. Clinical status for the patient has certainly improved-- compared to the initial hospital status. However, again, the future status/prognosis for this elderly patient, with multiple serious medical disorders, does remain very guarded. I will discuss the above with Dr. Gamez. Alex Rothman MD [facility]
[2017-08-10] MEDS ORDERED: Ergocalciferol 50,000 Intl Units Cap PO SCH ×2 (13:00→13:15)
--- NOTE | 2017-08-10 13:57 | PN ---
SUBJECTIVE: The patient is currently seen lying comfortable supine in bed, family is in the room. He appears to be in no acute distress. He appears to be diuresing nicely. His weight is coming down, his CHF is improving. He remains on inotropic agents to improve his cardiac output. MEDICATIONS: Medication list reviewed. The patient is currently on Ativan, Coreg, Ecotrin, heparin, insulin, K-Tabs, p.o. Lasix, Lipitor, Primacor drip, Protonix, Pulmicort, Seroquel, Tessalon, p.r.n. Valium, Xopenex p.r.n. OBJECTIVE: INTAKE AND OUTPUT: Intake 260, output 2350. WEIGHT: Yesterday's weight was 168 pounds, today's weight is pending. His weight according to the chart was 182 pounds on admission. VITAL SIGNS: Blood pressure 114/56, temperature 97.6, respiratory rate 19 with a pulse of 78. Oxygen saturation is 100% on 2 liters nasal cannula. HEENT: Exam shows him to be normocephalic and atraumatic. Conjunctivae are pale. Sclerae are nonicteric. NECK: Supple. No neck vein distention. CHEST: Decreased breath sounds at the left base. No rales or wheezing. CARDIOVASCULAR: Shows a regular rate and rhythm. No S3, no S4. No rub. Status post aortic valve replacement. Status post mitral valve repair. Moderate tricuspid regurgitation. ABDOMEN: Soft. Bowel sounds normal. No distention. No rebound. No guarding. EXTREMITIES: Show no significant lower extremity cyanosis, clubbing or edema. LABORATORY DATA AND IMAGING: Chest x-ray from yesterday showed decreasing CHF, but a persistent left pleural effusion. Labs, CBC: White blood cell count 5.4, hemoglobin down to 8.9 with a platelet count of 147,000. Blood gas today is pH 7.36, pO2 of 150 with a pCO2 of 91? Bicarbonate of 51.4. Electrolytes today: Sodium 148, potassium 4.2, chloride 91 with a CO2 of 45, BUN is 55 with a creatinine of 1.0, glucose is 113. The patient's creatinine is down from maximum of 3.4 down to 1.0 at baseline. His maximum BUN was 86, down to 55. His baseline BUN is in the upper 20 low 30 range. Liver enzymes are normal with the exception of an elevated alkaline phosphatase. Albumin is 3.5. Thyroid levels were normal. Vitamin D level was low. PTH level was mildly elevated. His calcium and phosphorus levels normal. ASSESSMENT: 1. Prerenal azotemia in the setting of cardiorenal syndrome, low ejection fraction of 40% with a severely hypokinetic apical anterior wall. Concentric left ventricular hypertrophy. Pacemaker, aortic valve replacement, mitral valve repair, moderate tricuspid regurgitation. The patient will continue on inotropic therapy which is assisting in diuresis under the guidance of cardiology. We will likely need to accept a mild degree of prerenal azotemia as the patient will need to be maintained on Lasix therapy in light of his CHF and cardiorenal syndrome. 2. History of anemia. Iron levels with low range of normal. We will continue to monitor hemoglobin, try and keep hemoglobin in the 9 to 10 range. 3. Status post hyponatremia, this has resolved. 4. Status post hypokalemia. This has resolved. 5. Elevated PTH with a low vitamin D level. The patient will be started on vitamin D supplements. At present, his phosphorus level is normal, he does not require binders. 6. History of chronic obstructive pulmonary disease with CO2 retention. The patient will continue inhalation therapy and is being followed by pulmonary. PLAN: 1. Continue to monitor daily weights and accurate Is and Os. 2. Continue low-dose p.o. Lasix therapy along with inotropic therapy. 3. Continue to monitor labs on a daily basis. 4. Continue cardiology, pulmonary followup appreciated. 5. Close renal followup until his BUN and creatinine both return to baseline range. Luan Nath MD
--- NOTE | 2017-08-10 15:19 | PN ---
DATE: 08/10/2017 REASON FOR CONSULTATION AND FOLLOWUP: Congestive heart failure, coronary artery disease, mitral valve repair, bioprosthetic aortic valve, admitted with acute decompensated congestive heart failure secondary to obstructive uropathy, kidney injury, [id number] systolic dysfunction. SUBJECTIVE: The patient denies any chest pain, shortness of breath, or any palpitation. OBJECTIVE: GENERAL: Lying flat in the bed, not in apparent distress. VITAL SIGNS: As follows, temperature afebrile, heart rate 86, blood pressure 120/55. HEENT: PERRLA. Extraocular muscles intact. NECK: Supple. No carotid bruit or thyromegaly. CHEST: Clear to auscultation. HEART: S1 and S2, regular. ABDOMEN: Soft. EXTREMITIES: Clubbing and cyanosis negative. LABORATORY DATA: Blood workup as follow; WBC 5.4, hemoglobin 8.9, hematocrit 29.7, and platelet count 147. Chemistry shows sodium 140, potassium 4.2, chloride 91, carbon dioxide 95, anion gap of 16, BUN 55, and creatinine 1.0. IMPRESSION: Acute obstructive uropathy; acute kidney injury, elevated BUN and creatinine; cardiomyopathy, status post aortic valve repair bioprosthesis, status post mitral valve repair; pulmonary edema; severely elevated BUN and creatinine; pleural effusion; trace pericardial effusion, ejection fraction 40%; pulmonary hypertension; right ventricular systolic pressure of 78; normal functioning bioprosthetic aortic valve and mitral valve repair. RECOMMENDATIONS: Continue low dose of milrinone for next 24-48 hours. Continue diuresis. Renal function significantly improved. Yesterday, the patient had a 2 L negative fluid balance, the day before 1 L and 1.8 L, so almost in last 3-4 days, 7-8 L for negative fluid balance. We will repeat chest x-ray tomorrow and we will try to taper the Lasix. In the interim, continue Coreg, continue Lasix, continue supplement potassium. Lasix was changed to p.o. yesterday by Dr. Mckeon. We will discontinue milrinone tomorrow. We will follow up electrolytes. We will get the chest x-ray repeat. Discussed with Dr. Ronnie Gamez. Thank you for providing us the opportunity in taking care of the patient, Alex Rutledge. Tara Leach MD
[2017-08-10] MEDS ORDERED: Darbepoetin Alfa 100 mcg/ml Inj SC ONE (15:27)
[2017-08-10] MEDS: Milrinone 20mg/100ml D5W 100 ML IV PRN (16:24)
[2017-08-11 00:10] VITALS: RESP 20
[2017-08-11] MEDS: Levalbuterol 0.63 MG/3 ML Inhal Soln UD IH SCH ×2 (02:15→07:35)
[2017-08-11] MEDS: Pantoprazole 40 mg EC Tab PO SCH (05:27)
[2017-08-11 06:01] LABS: BASO # 0.01 K/mm3 (0.0-2.0); BASO % 0.2 % (0.0-3.0); EOS % 0.3 % (1.5-5.0); GRAN # 5.74 (1.4-6.5); GRAN % 86.4 % (50.0-68.0); LYMPH # 0.5 (1.2-3.4); LYMPH % 7.7 % (22.0-35.0); MEAN CORPUSCULAR HEMOGLOBIN 29.3 pg (25.0-35.0); MEAN CORPUSCULAR HGB CONC 29.3 g/dl (31.0-37.0); MEAN PLATELET VOLUME 9.9 fl (7.0-11.0); MONO # 0.4 (0.1-0.6); MONO % 5.4 % (1.0-6.0); RED CELL DISTRIBUTION WIDTH 17.3 % (11.5-14.5); WHITE BLOOD COUNT 6.6 10^3/ul (4.5-11.0)
[2017-08-11 06:18] VITALS: O2SAT 99
[2017-08-11 06:37] LABS: ALB/GLOB RATIO 0.9 (1.1-1.8); ALKALINE PHOSPHATASE 214 U/L (38-126); ALT/SGPT 20 U/L (7-56); AST/SGOT 39 U/L (17-59); BILIRUBIN,TOTAL 0.9 mg/dL (0.2-1.3); BLOOD UREA NITROGEN 59 mg/dL (7-21); CALCIUM 8.8 mg/dL (8.4-10.5); CHLORIDE 91 mmol/L (98-107); GFR AFRICAN-AMERICAN > 60; GLUCOSE,RANDOM 109 mg/dL (70-110); MAGNESIUM 1.8 mg/dL (1.7-2.2); PHOSPHOROUS 3.6 mg/dL (2.5-4.5); POTASSIUM 4.3 mmol/L (3.6-5.0); SODIUM 149 mmol/L (132-148); TOTAL PROTEIN 7.1 g/dL (5.8-8.3)
[2017-08-11 07:09] LABS: CARBON DIOXIDE 50 mmol/L (21-33)
[2017-08-11] MEDS: Budesonide 0.5 mg/2 ml Inhal Susp UD IH SCH (07:35)
[2017-08-11] MEDS: Insulin Lispro (humaLOG) LOW Coverage SC SCH (08:19)
[2017-08-11] MEDS: Potassium Chloride 20 mEq ER Tab PO SCH (09:46)
--- NOTE | 2017-08-11 10:07 | RAD ---
HISTORY: R/O pneumonia Vs CHF COMPARISON: Portable chest 08/09/2017. FINDINGS: Permanent pacemaker and prosthetic cardiac valve again identified. LUNGS: A spaces disease is not significantly changed bilaterally and may be increase the mid to inferior right lung zone. Left-sided airspace disease is unchanged essentially in the same distribution as the right. PLEURA: A mild decrease in left pleural effusion is likely with minimal right pleural effusion potentially remaining. No pneumothorax. CARDIOVASCULAR: CHF pattern appears unchanged. OSSEOUS STRUCTURES: No significant abnormalities. VISUALIZED UPPER ABDOMEN: Normal. OTHER FINDINGS: None. IMPRESSION: A mild improvement in left pleural effusion is questioned with bilateral mid to inferior pulmonary airspace disease again identified. CHF pattern does not appear significantly changed in the interval.
--- NOTE | 2017-08-11 10:37 | PN ---
SUBJECTIVE: The patient was seen and examined at bedside on the telemetry gonzales. No acute events overnight. He remains afebrile and hemodynamically stable. This morning he appears to be back to his baseline and is awake and alert. He offers no complaints and states he wants to go home. OBJECTIVE: VITAL SIGNS: Temperature 97.8, pulse 70, blood pressure 129/55, respiratory rate 20, and oxygen saturation 99% on 2 L nasal cannula. GENERAL: Frail elderly man appearing his stated, lying in bed in no apparent distress. HEENT: PERRL. EOMI. No scleral icterus. Conjunctival pallor is noted. NECK: No JVD. LUNGS: Decreased breath sounds at the bases, otherwise clear. CARDIOVASCULAR: RRR, Normal S1 and S2. Grade 2/6 ANGEL to RUSB, Grade 2/6 murmur to LLSB. AICD to left anterior chest wall. ABDOMEN: Normoactive bowel sounds, soft, nontender, nondistended. EXTREMITIES: No edema. Moving all extremities. NEUROLOGIC: Awake, alert, and oriented to person and placed. LABORATORY DATA: WBC is 6.6 with 86% neutrophils, hemoglobin 8.5, hematocrit 29 and platelets 139. Sodium 149, potassium 4.3, chloride 91, bicarbonate 50, BUN 59, creatinine 1.1 and glucose 109. ASSESSMENT: The patient is an 81-year-old man with multiple medical comorbidities including CAD s/p [place] s/p CABG, ischemic cardiomyopathy s/p AICD, history of AVR/MVR and iron deficiency anemia (on monthly iron infusions) who presented to [facility] with a 7-day history of weakness, malaise and exertional dyspnea and was who was admitted to the CCU for management of acute on chronic systolic heart failure exacerbation, acute on chronic kidney disease and symptomatic anemia who is now status post transfer to the telemetry gonzales and stable for discharge to home. PLAN: 1. Acute on chronic systolic heart failure exacerbation, resolved. The patient has lost 15 pounds since admission and is presently at his dry weight. Input from Dr. Leach noted and appreciated and the patient has been weaned off milrinone infusion. He remains on Lasix 20 mg p.o. b.i.d. 2. Ischemic cardiomyopathy, status post AICD, continue care as per #1. 3. CAD, status post AL, status post CABG. Continue with aspirin 81 mg p.o. daily, Lipitor 20 mg p.o. daily and Coreg 12.5 mg p.o. b.i.d. 4. Acute on chronic kidney disease, resolved. Lab demonstrates the patient's renal function to be at his baseline. Input from Dr. Mckeon noted and appreciated. Continue with Lasix 20 mg p.o. b.i.d. 5. Non-insulin dependent diabetes mellitus. Continue with low-dose insulin sliding scale for coverage. 6. Hypertension. Blood pressure controlled. Continue with current medications. 7. Iron deficiency anemia. Input from Dr. Herrera noted and greatly appreciated. The patient remains on Procrit. 8. Prophylaxis. Continue with Protonix for GI prophylaxis and heparin for DVT prophylaxis. CODE STATUS: FULL CODE. Ronnie Gamez MD MTDD
--- NOTE | 2017-08-11 10:46 | PN ---
DATE:08/11/17 SUBJECTIVE: The patient appears comfortable this morning. He is not short of breath at rest. OBJECTIVE: VITAL SIGNS: Temperature is 97.8, pulse 70, respirations 18, blood pressure 129/55. Oxygen saturation on nasal cannula is 96%. HEENT: Normocephalic, atraumatic. No JVD. CARDIOVASCULAR: Systolic ejection murmur at the lower left sternal border. Positive S3 gallop. LUNGS: Decreased breath sounds at the bases with crackles. Much less rhonchi. No wheezing. EXTREMITIES: Less edema. No cyanosis, no clubbing. Calves are nontender to palpation. GASTROINTESTINAL: Abdomen is soft, nontender and nondistended. Bowel sounds are positive. SKIN: No acute rash. NEUROLOGIC: Exam limited at the present time. IMPRESSION: 1. Acute congestive heart failure. 2. Chronic obstructive pulmonary disease. 3. Status post respiratory failure. 4. Chronic left pleural effusion. 5. Renal insufficiency. 6. Anemia. 7. Coronary artery disease. PLAN: The patient appears comfortable this morning. He is not short of breath at rest. He states he is feeling much better overall. On physical exam, his bronchospasm is significantly less. In addition, the oxygen saturation on nasal cannula is now 96%. I will continue the current nebulizer treatments and inhaled steroids for now. Inputs by cardiology and renal are noted. Clinical status of the patient is significantly improved - compared to last week. However, again, the future status/prognosis for this elderly patient ,with multiple serious medical problems, remains very guarded at best. All are aware. I will discuss the above with Dr. Gamez. Alex Rothman MD [facility]
[2017-08-11 11:46] VITALS: BP 105/50; PULSE 69; TEMP 98.5
--- NOTE | 2017-08-11 14:32 | PN ---
REASON FOR CONSULTATION AND FOLLOWUP: Congestive heart failure, coronary artery disease, mitral valve repair, bioprosthetic aortic valve, admitted with acute decompensated congestive heart failure, and acute renal insufficiency, acute kidney injury secondary to obstructive uropathy. SUBJECTIVE: The patient is an 81-year-old male. The patient denies any chest pain, shortness of breath, wanted to go home. OBJECTIVE: Lying flat in the bed, not in apparent distress. Renal function significantly improved. PHYSICAL EXAMINATION VITAL SIGNS: As follows, temperature afebrile, heart rate 70, blood pressure 129/55. HEENT: PERRLA. Extraocular muscles intact. NECK: Supple. No carotid bruit or thyromegaly. CHEST: Clear to auscultation. HEART: S1 and S2, regular. ABDOMEN: Soft. EXTREMITIES: Clubbing and cyanosis negative. LABORATORY DATA: Blood workup as follows; WBC , hemoglobin 8.5, hematocrit 29, and platelet count 139. Chemistry shows sodium , chloride 91, carbon dioxide 50, anion gap 12, BUN 59, and creatinine 1.1. IMPRESSION: An 81-year-old male with past medical history significant for coronary artery disease, coronary artery bypass grafting status post bioprosthetic aortic valve repair, status post mitral valve repair, admitted with acute obstructive uropathy; elevated BUN and creatinine, cardiomyopathy, and decompensated congestive heart failure. RECOMMENDATIONS: The patient was started on Primacor and Lasix. The patient diuresed about 8 to 9 liters since admission, lost 15 pounds weight, significantly improved, now BUN and creatinine function back to normal. Creatinine today is 1.1. Admitting creatinine was 3.4. Creatinine function improved from GFR 18 mL to normal more than 60 mL. The patient's IV Lasix was changed to p.o. Discontinue Primacor 07:00 am. Plan is to discharge home. Discussed with Dr. Ronnie Gamez. Today chest x-ray was done. The official result is pending, but looks like significant improvement from condition from before. Clinically, the patient is significantly improved, possible discharge today. We will follow with you. Thank you Dr. Ronnie Gamez for providing us the opportunity in taking care of the patient. Continue atorvastatin, continue carvedilol. Tara Leach MD cc:
--- NOTE | 2017-08-12 10:05 | DS ---
ADMITTING DIAGNOSES: Yvjch-ie-aiubakn systolic heart failure exacerbation, rtsbd-dw-yfbdkmt kidney injury. DISCHARGE DIAGNOSIS: Gtjkf-sj-ondzrlz systolic heart failure exacerbation (resolved). SECONDARY DIAGNOSES: Ischemic cardiomyopathy s/p AICD, CAD s/p WI s/p PCI with multiple stent placement s/p CABG x 2, NIDDM, hypertension, iron deficiency anemia (on Procrit and monthly IV iron infusions), COPD, history of AVR/MVR, anxiety disorder and insomnia CONSULTATIONS: Dr. Rojas (psychiatry), Dr. Leach (cardiology), Dr. Rothman (pulmonary and critical care medicine), Dr. Herrera (hematology/oncology), Dr. Nath (nephrology). IMAGING STUDIES: 1. Chest x-ray which demonstrated bilateral pulmonary venous congestion suggesting active CHF and a moderately large left pleural effusion. 2. Renal ultrasound which demonstrated nonobstructive uropathy bilaterally and otherwise, no acute pathology. DIAGNOSTIC STUDIES: TTE which demonstrated bgzt-[id number]-[id number] concentric LVH with a mildly impaired systolic function with an ejection fraction of 40% and zvywqvgz-ok-hdywak hypokinesis in the apical anterior wall. HISTORY OF PRESENT ILLNESS: The patient is an 81-year-old man with a past medical history of CAD s/p PCI with multiple stent placement s/p CABG x 2, ischemic cardiomyopathy s/p AICD, history of AVR/MVR, hypertension, NIDDM and iron-deficiency anemia (on Procrit and monthly IV iron infusions) who presented to [facility] ED with a several day history of fatigue, malaise, weakness and exertional dyspnea. After prompt evaluation in the ED he was admitted to the CCU for acute-on- chronic systolic heart failure exacerbation, symptomatic anemia and acute-on chronic kidney injury. HOSPITAL COURSE: Upon admission to the CCU the patient was evaluated by Dr. Nath of nephrology , Dr. Leach of cardiology and Dr. Herrera of hematology oncology. He was started on a milrinone infusion and intravenous Lasix. Over the following 3 days the patient diuresed nicely and demonstrated a 15-pound weight loss. His CCU stay was complicated by episodes of delirium for which the patient was evaluated by Dr. Rojas and started on Seroquel. As his clinical status improved in the CCU, his delirium was noted to improve and he was transferred to the telemetry gonzales after initial stabilization in the CCU. Upon transfer to the telemetry gonzales the patient was noted to remain afebrile and hemodynamically stable and continued to diurese nicely. His Lasix was lowered to 20mg BID as his labs demonstrated contraction alkalosis. By hospital day #6 the patient was noted to be at his baseline functional status and at this point in time was deemed stable for discharge to home. CONDITION: Fair, improved. DISPOSITION: Home. DISCHARGE MEDICATIONS: Coreg 6.25 mg p.o. b.i.d., Lisinopril 10 mg p.o. daily, Lasix 20 mg p.o. b.i.d. , Lipitor 20 mg p.o. daily, Pepcid 20 mg p.o. b.i.d., Metformin 500 mg p.o. b.i.d., Valium 5 mg p.o. h.s, Procrit and Venofer infusions monthly. DISCHARGE INSTRUCTIONS: The patient was advised that if he has any recurrence of his symptoms to present to his PMD or to the nearest ED immediately. FOLLOWUP: The patient to follow up with his PMD within 1 week of discharge. 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 The patient to follow up with his swatch checker/oncologist as scheduled. Ronnie Gamez MD MTDBerny
--- NOTE | 2017-08-14 19:29 | PQF RESP ---
08/14/17 Dr. Ronnie Gamez, Respiratory failure is documented on progress notes of 08/06, 08/09, 08/10, and . Please indicate whether this is acute, chronic or both. Also, please specify whether this is with hypoxia and/or hypercapnia. Thank you. Clarification of your documentation is requested to better reflect the severity of illness and intensity of treatment of your patient. Indicators present [] Use of Home Oxygen [] Respiratory rate > 28 or <8/min (Labored respirations) [] PCO2 > 50 mm Hg or (Hypercapnia) (somnolence) [] PaO2 < 60 mm Hg or Hypoxemia (confusion) [] ABG blood gas pH < 7.35 [] SpO2 < 90% sat on Room Air [] Cyanosis [] Unable to Speak in Full Sentences [x] Use of Accessory Muscles / Tripoding [x] Wheezing [] Other: [] Location in the medical record that reflects the above clinical findings: [] Treatment Provided: [] PHYSICIAN'S RESPONSE Based on your medical judgment of the clinical indicators outlined above, are you treating this patient for a known or suspected: [x] Acute Respiratory Failure (hypoxia or hypercapnia) [] Chronic Respiratory Failure (hypoxia or hypercapnia) [] Acute on Chronic Respiratory Failure (hypoxia or hypercapnia) [] Hypoxemia please specify ACUTE, CHRONIC or ACUTE on CHRONIC [] Other []_ [] If unable to determine, please check the box, sign and date. Present On Admission (POA) Indicator: [x] Present at the time of admission [] Not present at the time of admission [] Clinically Undetermined In responding to this query, please exercise your independent professional judgment. The fact that a question is asked does not imply that any particular answer is desired or expected. Thank you for your clarification on this documentation. 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 In theory, respiratory failure is defined as a Pa02 value of <60 mm/Hg or a PaC02 of >50 mm/Hg. However, these values may be affected by renal compensation. Respiratory failure may be acute or chronic. While acute respiratory failure is characterized by life-threatening derangement in arterial blood gases and acid-base balance, the manifestations of chronic respiratory failure are less dramatic and may not be as readily apparent. Classifications: Respiratory failure may be classified as hypoxemic (usually characterized by Pa02 of <60 mm/Hg) or hypercapnic (usually characterized by PaC02 >50 mm/Hg) and either may be acute or chronic. Chronic hypercapnic respiratory failure develops over time and allows for renal compensation and an increase in bicarbonate concentration; therefore the pH is usually only slightly decreased. The distinction between acute and chronic hypoxemic respiratory failure cannot readily be made on the basis of ABGs; the clinical markers of chronic hypoxemia, such as polythycemia or cor pulmonale suggest a long standing disorder (chronic hypoxemic respiratory failure). Clinical Indicators: dyspnea at rest or "chronic" dyspnea, concomitant conditions such as polycythemia or cor pulmonale, requirement for continuous oxygen support, forced expiratory volume in one second (FEV1) of 49 or less, pursed lip breathing, "barrel" chest, hyperinflation by CXR, muscle wasting, malnutrition/obesity, poor exercise capacity, peripheral edema, description as a "blue bloater" (usually associated with chronic, obstructive bronchitis) or "pink puffer" (usually associated with emphysema) Risks: Chronic Hypoxemic Respiratory Failure - COPD, pulmonary fibrosis, asthma , pulmonary arterial hypertension, granulomatous lung diseases, congenital heart disease, bronchiectasis, kyphoscoliosis, obesity; Chronic Hypercapnic Respiratory Failure - COPD, severe asthma, myasthenia gravis, polyneuropathy, polio, head and cervical spine injuries, obesity hypoventilation syndrome. Treatment: supplemental oxygen, bronchodilators, corticosteroids, adequate nutrition, lung transplant References: Am. J. Respir. Crit. Care Med. "Global Strategy for the Diagnosis, Management and Prevention of COPD: GOLD Exectuive Summary," Alberto Bass Anzueto - 2007; Proceedings of the [place] [employer] "Mechanisms and Measurements of Dyspnea in COPD," Rodolfo - 2006; WebMD; Respiratory Failure, Avery Millan MD - 05/2006; Gómez's Principles of Internal Medicine, 17th edition. Acute Respiratory Failure Acute Respiratory Failure indicators include: ~Respirations >28 ~Air hunger ~Use of accessory muscles of respiration ~Inability to speak in full sentences Cyanosis ~Pulse ox <90% RA or <95% on O2 pH <7.35 or >7.45 ~pO2 < 60 mm Hg (or 10mm below COPD patient's baseline) ~pCO2 >50mm Hg (or 10mm above COPD patient's baseline) "Respiratory failure may be assigned as a principal diagnosis when it is the condition established after study to be chiefly responsible for occasioning admission to the hospital. The fact that the respiratory failure was managed without intubation and mechanical ventilation does not preclude its use." [facility], 3rd Qtr., 1988, p. 7 MTDD
== END 2017-08-11 14:06 | disposition home or self-care (01) | DRG 291 ==
LOC: ED 22:23 → ERH 08-05 02:46 → CCU 08-05 08:54 → 2RNO 08-09 19:08
PROVIDERS: ADMIT Student in an Organized Health Care Education/Training Program; ATTEND Student in an Organized Health Care Education/Training Program
DX: I13.0 Hypertensive heart and chronic kidney disease with heart failure and stage 1 through stage 4 chronic kidney disease, or unspecified chronic kidney disease (principal); I50.23 Acute on chronic systolic (congestive) heart failure; J96.00 Acute respiratory failure, unspecified whether with hypoxia or hypercapnia; J18.9 Pneumonia, unspecified organism; E87.4 Mixed disorder of acid-base balance; J44.0 Chronic obstructive pulmonary disease with (acute) lower respiratory infection; I31.3 Pericardial effusion (noninflammatory); N18.4 Chronic kidney disease, stage 4 (severe); N17.9 Acute kidney failure, unspecified; K92.2 Gastrointestinal hemorrhage, unspecified; E11.22 Type 2 diabetes mellitus with diabetic chronic kidney disease; F03.90 Unspecified dementia, unspecified severity, without behavioral disturbance, psychotic disturbance, mood disturbance, and anxiety; E87.1 Hypo-osmolality and hyponatremia; J98.11 Atelectasis; N13.9 Obstructive and reflux uropathy, unspecified; I27.2 Other secondary pulmonary hypertension; I08.2 Rheumatic disorders of both aortic and tricuspid valves; E87.5 Hyperkalemia; E83.51 Hypocalcemia; I25.5 Ischemic cardiomyopathy; D50.9 Iron deficiency anemia, unspecified; M19.90 Unspecified osteoarthritis, unspecified site; E78.5 Hyperlipidemia, unspecified; E87.6 Hypokalemia; F17.290 Nicotine dependence, other tobacco product, uncomplicated; F32.89 Other specified depressive episodes; G47.30 Sleep apnea, unspecified; I25.2 Old myocardial infarction; I25.10 Atherosclerotic heart disease of native coronary artery without angina pectoris; I73.9 Peripheral vascular disease, unspecified; Z79.84 Long term (current) use of oral hypoglycemic drugs; Z87.01 Personal history of pneumonia (recurrent); Z87.442 Personal history of urinary calculi; Z95.0 Presence of cardiac pacemaker; Z95.1 Presence of aortocoronary bypass graft; Z95.3 Presence of xenogenic heart valve; Z95.5 Presence of coronary angioplasty implant and graft; Z95.810 Presence of automatic (implantable) cardiac defibrillator; R40.2413 Glasgow coma scale score 13-15, at hospital admission

== ENCOUNTER 2017-09-06 12:38 | Emergency (ER) | payer MEDICARE ==
[2017-09-06 13:00] VITALS: TEMP 98.7; BMI 25.1
--- NOTE | 2017-09-06 13:17 | ED PDOC ---
Arrival/HPI - General Chief Complaint: Shortness Of Breath Time Seen by Provider: 09/06/17 12:49 Historian: Patient - History of Present Illness Narrative History of Present Illness (Text): 09/06/17 13:10 Alex Rutledge is an 81 year old male, whose past medical history includes CHF, hypertension, PVD, and diabetes, who presents to the emergency department complaining of shortness of breath and "less sleep". Patient is a poor historian and denies any pain or fever. No other complaints were made. noted pt had extended stay inpt recently. PMD: Dr. English 09/06/17 17:21 Time/Duration: < week (3 days lack of sleep) Symptom Onset: Gradual Symptom Course: Unchanged Past Medical History - Provider Review Nursing Documentation Reviewed: Yes - Infectious Disease Hx of Infectious Diseases: None - Tetanus Immunization Tetanus Immunization: Unknown - Cardiac Hx Cardiac Disorders: (mi) Hx Congestive Heart Failure: Yes Hx Hypertension: Yes Hx Internal Defibrillator: Yes (2011) Hx Pacemaker: Yes (2011) Hx Peripheral Edema: Yes (+2 pitting bld) Hx Peripheral Vascular Disease: Yes Other/Comment: mitral valve repair, quadruple bypass at [facility] - Pulmonary Hx Bronchitis: Yes Hx Pneumonia: Yes Hx Sleep Apnea: Yes (cpap at home) - Neurological Hx Neurological Disorder: No - HEENT Hx HEENT Disorder: Yes (sinusitis, eyeglasses) - Renal Hx Kidney Stones: Yes - Endocrine/Metabolic Hx Diabetes Mellitus Type 2: Yes - Hematological/Oncological Hx Anemia: Yes (iron deficiency, tx by dr clemens) Other/Comment: venofer iv, pt denies blood transfusions - Integumentary Other/Comment: b/l arms skin discolorations - Musculoskeletal/Rheumatological Hx Falls: No - Gastrointestinal Other/Comment: GI BLEED - Psychiatric Hx Emotional Abuse: No Hx Physical Abuse: No Hx Substance Use: No - Surgical History Hx Coronary Artery Bypass Graft: Yes (QUADRUPLE) - Anesthesia Hx Anesthesia Reactions: No - Suicidal Assessment Feels Threatened In Home Enviroment: No Family/Social History - Physician Review Nursing Documentation Reviewed: Yes Family/Social History: Unknown Family HX Smoking Status: Unknown If Ever Smoked Hx Alcohol Use: No Hx Substance Use: No Allergies/Home Meds Allergies/Adverse Reactions: Allergies No Known Allergies Allergy (Verified 08/05/17 14:08) Home Medications: Home Meds Medication Instructions Recorded Confirmed Carvedilol [Coreg] 6.25 mg PO BID 10/12/15 09/06/17 Metformin HCl 850 mg PO DAILY 10/12/15 09/06/17 Diazepam [Diazepam] 5 mg PO HS PRN 03/21/16 08/11/17 Furosemide [Lasix] 20 mg PO DAILY PRN 07/10/16 09/06/17 Iron Sucrose [Venofer] 100 mg IV Q30D 07/10/16 09/06/17 Melatonin/Pyridoxine HCl (B6) 1 each PO HS 07/10/16 09/06/17 [Melatonin 10 mg Tablet] metOLazone [Zaroxolyn] 2.5 mg PO DAILY 08/04/17 09/06/17 Review of Systems - Review of Systems Constitutional: Fatigue, Other (lack of sleep). absent: Fevers Respiratory: SOB. absent: Cough Cardiovascular: absent: Chest Pain Gastrointestinal: absent: Abdominal Pain, Nausea, Vomiting Genitourinary Male: absent: Frequency Musculoskeletal: absent: Back Pain Neurological: absent: Headache Physical Exam Vital Signs Reviewed: Yes Vital Signs Temp Pulse Resp BP Pulse Ox 09/06/17 15:39 75 19 117/62 97 09/06/17 14:40 119/52 L 09/06/17 12:58 98.7 F 70 18 119/52 L 95 Temperature: Afebrile Blood Pressure: Hypotensive Pulse: Regular Respiratory Rate: Normal Appearance: Positive for: Well-Appearing, Non-Toxic, Comfortable Pain Distress: None Mental Status: Positive for: Alert and Oriented X 3 - Systems Exam Head: Present: Atraumatic, Normocephalic Respiratory/Chest: Present: Good Air Exchange, Other (crackles at bases). No: Respiratory Distress, Accessory Muscle Use Cardiovascular: Present: Regular Rate and Rhythm, Normal S1, S2. No: Murmurs Abdomen: Present: Normal Bowel Sounds. No: Tenderness, Distention, Peritoneal Signs Upper Extremity: Present: Normal Inspection. No: Cyanosis, Edema Lower Extremity: Present: Normal Inspection. No: Edema Neurological: Present: GCS=15, CN II-XII Intact, Speech Normal Skin: Present: Warm, Dry, Normal Color. No: Rashes Psychiatric: Present: Alert, Oriented x 3, Normal Insight, Normal Concentration Medical Decision Making ED Course and Treatment: ro chf, pna, copd. 09/06/17 EKG: Ordered, reviewed, and independently interpreted the EKG. Rate : 76 BPM Rhythm : pacemaker Interpretation : No ST-segment elevations or depressions, no T-wave inversions, normal intervals. 09/06/17 14:00 Chest X-ray: Creator : Amish Hernandez MD COMPARISON: 08/11/2017 FINDINGS: LUNGS: Increasing bilateral infiltrates and vascular congestion PLEURA: No significant pleural effusion identified, no pneumothorax apparent. CARDIOVASCULAR: Severe cardiomegaly OSSEOUS STRUCTURES: Sternal wires VISUALIZED UPPER ABDOMEN: Normal. OTHER FINDINGS: Pacemaker IMPRESSION: Increasing bilateral infiltrates and vascular congestion 09/06/17 15:30 Leaving Against Medical Advice (AMA): The patient is choosing to leave against medical advice. I have personally explained to the patient that choosing to do so may result in permanent bodily harm or . I have discussed at great length that without further evaluation and monitoring there may be unforeseen circumstances and/or deterioration causing permanent bodily harm or as a result of their choice. The patient is alert, oriented, and shows the mental capacity to make clear decisions regarding the patients health care at this time. The patient continues to wish to leave against medical advice. The patient has been advised that they should return to the emergency room immediately if they change their mind at any time, or if their condition begins to change or worsen in any way. 09/06/17 15:42 Had a lengthy discussion with patient at bed side, patient is aware he is at high risk for mortality, CHF and hypercarbia Patient insists on leaving emergency department and refuses to stay. Patient's will be picking him up shortly. multiple discussions bedside, and pt insistent about leaving. 09/06/17 17:22 - Lab Interpretations Lab Results: 09/06/17 13:42 09/06/17 13:42 Lab Results 09/06/17 13:47: Urine Color Yellow, Urine Appearance Clear, Urine pH 6.0, Ur Specific [place]quete 1.020, Urine Protein Trace H, Urine Glucose (UA) Negative, Urine Ketones Negative, Urine Blood Negative, Urine Nitrate Negative, Urine Bilirubin Negative, Urine Urobilinogen 1.0 H, Ur Leukocyte Esterase Negative, Urine RBC 0 - 2, Urine WBC 0 - 2, Ur Epithelial Cells 0 - 2, Urine Bacteria Trace 09/06/17 13:42: pO2 40, VBG pH 7.37, VBG pCO2 90.0 H*, VBG HCO3 52.0 H, VBG Total CO2 54.8 H, VBG O2 Sat (Calc) 82.4 H, VBG Base Excess 21.4 H, VBG Potassium 5.9 H, Sodium 136.0, Chloride 97.0 L, Glucose 127 H, Lactate 1.0, FiO2 21.0, Venous Blood Potassium 5.9 H 09/06/17 13:42: Sodium 136, Chloride 88 L, Potassium 5.0, Carbon Dioxide 43 H, Anion Gap 10, BUN 33 H, Creatinine 1.1, Est GFR ( Amer) > 60, Est GFR ( Non-Af Amer) > 60, Random Glucose 120 H, Calcium 8.9, Magnesium 2.0, Total Bilirubin 0.6, AST 39, ALT 27, Alkaline Phosphatase 265 H D, Lactate Dehydrogenase 382, Total Creatine Kinase < 20 L, Troponin I 0.02 D, NT-Pro-B Natriuret Pep 5780 H, Total Protein 6.8, Albumin 3.4, Globulin 3.4, Albumin/ Globulin Ratio 1.0 L 09/06/17 13:42: PT 14.4 H, INR 1.30 H, APTT 32.1 09/06/17 13:42: WBC 5.4, RBC 3.16 L, Hgb 9.3 L, Hct 30.9 L, MCV 97.8, MCH 29.4, MCHC 30.1 L, RDW 18.7 H, Plt Count 132, MPV 9.2, Gran % 80.9 H, Lymph % (Auto) 10.8 L, Izard % (Auto) 7.4 H, Eos % (Auto) 0.7 L, Baso % (Auto) 0.2, Gran # 4.35 , Lymph # 0.6 L, Izard # 0.4, Eos # 0.0, Baso # 0.01 I have reviewed the lab results: Yes - RAD Interpretation Radiology Orders: 09/06/17 13:14 CHEST PORTABLE [RAD] Stat Bulb Farmworker: Radiologist - EKG Interpretation Interpreted by ED Physician: Yes Type: 12 lead EKG - Medication Orders Current Medication Orders: Discontinued Medications Albuterol/Ipratropium (Duoneb 3 Mg/0.5 Mg (3 Ml) Ud) 3 ml IH STAT STA Stop: 09/06/17 13:57 Last Admin: 09/06/17 14:06 Dose: 3 ml Furosemide (Lasix) 40 mg IVP STAT STA Stop: 09/06/17 14:16 Last Admin: 09/06/17 14:40 Dose: 40 mg MAR Blood Pressure Document 09/06/17 14:40 SMA (Rec: 09/06/17 14:58 SMA [id number]) Blood Pressure Blood Pressure (100/60-150/90) 119/52 IVP Administration Document 09/06/17 14:40 SMA (Rec: 09/06/17 14:58 SMA [id number]) Charges for Administration # of IVP Administrations 1 Methylprednisolone (Solu-Medrol) 125 mg IVP STAT STA Stop: 09/06/17 13:57 Last Admin: 09/06/17 14:15 Dose: 125 mg IVP Administration Document 09/06/17 14:15 SMA (Rec: 09/06/17 14:15 SMA [id number]) Charges for Administration # of IVP Administrations 1 - Scribe Statement The provider has reviewed the documentation as recorded by the Patoibe Sharon Jain Provider Scribe Attestation: All medical record entries made by the Scribe were at my direction and personally dictated by me. I have reviewed the chart and agree that the record accurately reflects my personal performance of the history, physical exam, medical decision making, and the department course for this patient. I have also personally directed, reviewed, and agree with the discharge instructions and disposition. Disposition/Present on Arrival - Present on Arrival Any Indicators Present on Arrival: No History of DVT/PE: No History of Uncontrolled Diabetes: No Urinary Catheter: No History of Decub. Ulcer: No History Surgical Site Infection Following: None - Disposition Have Diagnosis and Disposition been Completed?: Yes Diagnosis: Congestive heart failure (CHF), COPD (chronic obstructive pulmonary disease) Disposition: AGAINST MEDICAL ADVICE Disposition Time: 04:00 Condition: UNKNOWN Discharge Instructions (ExitCare): Heart Failure (ED), COPD (Chronic Obstructive Pulmonary Disease) (ED), Against Medical Advice (ED) Additional Instructions: you are leaving against medical advice. you are at risk for . you are able to return to er at any point with any concern. Prescriptions: Prednisone 50 mg PO DAILY #5 tablet Forms: [facility] ([place])
--- NOTE | 2017-09-06 13:48 | RAD ---
HISTORY: sob COMPARISON: 08/11/2017 FINDINGS: LUNGS: Increasing bilateral infiltrates and vascular congestion PLEURA: No significant pleural effusion identified, no pneumothorax apparent. CARDIOVASCULAR: Severe cardiomegaly OSSEOUS STRUCTURES: Sternal wires VISUALIZED UPPER ABDOMEN: Normal. OTHER FINDINGS: Pacemaker IMPRESSION: Increasing bilateral infiltrates and vascular congestion
[2017-09-06 13:50] LABS: VENOUS BLOOD GAS BASE EXCESS 21.4 mmol/L (0.0-2.0); VENOUS BLOOD PH 7.37 (7.32-7.43)
[2017-09-06 13:53] LABS: BASO # 0.01 K/mm3 (0.0-2.0); BASO % 0.2 % (0.0-3.0); EOS % 0.7 % (1.5-5.0); GRAN # 4.35 (1.4-6.5); GRAN % 80.9 % (50.0-68.0); HEMATOCRIT 30.9 % (42.0-52.0); LYMPH # 0.6 (1.2-3.4); LYMPH % 10.8 % (22.0-35.0); MEAN CELL VOLUME 97.8 fl (80.0-105.0); MEAN CORPUSCULAR HEMOGLOBIN 29.4 pg (25.0-35.0); MEAN CORPUSCULAR HGB CONC 30.1 g/dl (31.0-37.0); MEAN PLATELET VOLUME 9.2 fl (7.0-11.0); MONO # 0.4 (0.1-0.6); MONO % 7.4 % (1.0-6.0); RED CELL DISTRIBUTION WIDTH 18.7 % (11.5-14.5); WHITE BLOOD COUNT 5.4 10^3/ul (4.5-11.0)
[2017-09-06 13:53] LABS: URINE BILIRUBIN NEGATIVE (NEGATIVE); URINE BLOOD NEGATIVE (NEGATIVE); URINE GLUCOSE (UA) NEGATIVE (NEGATIVE); URINE KETONE NEGATIVE (NEGATIVE); URINE LEUKOCYTE ESTERASE NEGATIVE Leu/uL (NEGATIVE); URINE PROTEIN TRACE mg/dL (<30 mg/dL)
[2017-09-06] MEDS ORDERED: Albuterol-Ipratrop 3 mg / 0.5 (3 ml) UD IH STA (13:56)
[2017-09-06 13:57] LABS: URINE APPEARANCE CLEAR (CLEAR); URINE COLOR YELLOW (YELLOW)
[2017-09-06 13:58] LABS: INR 1.3 (0.93-1.08); PARTIAL THROMBOPLASTIN TIME 32.1 Seconds (25.1-36.5)
[2017-09-06] MEDS ORDERED: Albuterol-Ipratrop 3 mg / 0.5 (3 ml) UD ONE (14:00)
[2017-09-06 14:03] LABS: ALKALINE PHOSPHATASE 265 U/L (38-126); ALT/SGPT 27 U/L (7-56); AST/SGOT 39 U/L (17-59); BILIRUBIN,TOTAL 0.6 mg/dL (0.2-1.3); BLOOD UREA NITROGEN 33 mg/dL (7-21); CALCIUM 8.9 mg/dL (8.4-10.5); CHLORIDE 88 mmol/L (98-107); GFR AFRICAN-AMERICAN > 60; GLUCOSE,RANDOM 120 mg/dL (70-110); SODIUM 136 mmol/L (132-148); TOTAL PROTEIN 6.8 g/dL (5.8-8.3)
[2017-09-06 14:09] LABS: URINE BACTERIA TRACE (NEG); URINE EPITHELIAL CELLS 0 - 2 /hpf (0-5); URINE RBC 0 - 2 /hpf (0-2); URINE WBC 0 - 2 /hpf (0-6)
[2017-09-06 14:10] LABS: CARBON DIOXIDE 43 mmol/L (21-33)
[2017-09-06 14:14] LABS: TROPONIN I 0.02 ng/mL
[2017-09-06 15:40] VITALS: BP 117/62; PULSE 75; RESP 19; O2SAT 97
--- NOTE | 2017-09-06 16:39 | CARD ---
APPROVED REPORT EKG Measurement Heart [id number] <Conclusion> Electronic ventricular pacemaker V. paced with A. Fib.
== END 2017-09-06 16:05 | disposition left against medical advice (07) ==
LOC: ED 12:38
DX: J44.9 Chronic obstructive pulmonary disease, unspecified (principal); I50.9 Heart failure, unspecified; I10 Essential (primary) hypertension; E11.9 Type 2 diabetes mellitus without complications; I73.9 Peripheral vascular disease, unspecified; I48.91 Unspecified atrial fibrillation
CPT/HCPCS: 71010; 80053; 81001; 82550; 82803; 83615; 83735; 83880; 84484; 85025; 85610; 85730; 93005; 96374; 96375; 99284; J1940; J2930

== ENCOUNTER 2017-10-01 15:41 | Inpatient (IN) | payer MEDICARE ==
[2017-10-01] MEDS ORDERED: Potassium Chloride 40 mEq/30 ml LIQ UD PO STA (16:59)
--- NOTE | 2017-10-01 17:05 | ED PDOC ---
Arrival/HPI - General Chief Complaint: Weakness/Neurological Deficit Time Seen by Provider: 10/01/17 16:25 Past Medical History - Infectious Disease Hx of Infectious Diseases: None - Tetanus Immunization Tetanus Immunization: Unknown - Cardiac Hx Cardiac Disorders: (mi) Hx Congestive Heart Failure: Yes Hx Hypertension: Yes Hx Internal Defibrillator: Yes (2011) Hx Pacemaker: Yes (2011) Hx Peripheral Edema: Yes (+2 pitting bld) Hx Peripheral Vascular Disease: Yes Other/Comment: mitral valve repair, quadruple bypass at [facility] - Pulmonary Hx Bronchitis: Yes Hx Pneumonia: Yes Hx Sleep Apnea: Yes (cpap at home) - Neurological Hx Neurological Disorder: No - HEENT Hx HEENT Disorder: Yes (sinusitis, eyeglasses) - Renal Hx Kidney Stones: Yes - Endocrine/Metabolic Hx Endocrine Disorders: Yes Hx Diabetes Mellitus Type 2: Yes - Hematological/Oncological Hx Blood Disorders: Yes Hx Anemia: Yes (iron deficiency, tx by dr clemens) Other/Comment: venofer iv, pt denies blood transfusions - Integumentary Other/Comment: b/l arms skin discolorations - Musculoskeletal/Rheumatological Hx Falls: No - Gastrointestinal Other/Comment: GI BLEED - Psychiatric Hx Emotional Abuse: No Hx Physical Abuse: No Hx Substance Use: No - Surgical History Hx Coronary Artery Bypass Graft: Yes (QUADRUPLE) - Anesthesia Hx Anesthesia Reactions: No - Suicidal Assessment Feels Threatened In Home Enviroment: No Family/Social History Smoking Status: Never Smoked Hx Alcohol Use: No Hx Substance Use: No Allergies/Home Meds Allergies/Adverse Reactions: Allergies No Known Allergies Allergy (Verified 08/05/17 14:08) Home Medications: Home Meds Medication Instructions Recorded Confirmed Carvedilol [Coreg] 6.25 mg PO BID 10/12/15 10/01/17 Metformin HCl 500 mg PO BID 10/12/15 10/01/17 Furosemide [Lasix] 40 mg PO BID 07/10/16 10/01/17 metOLazone [Zaroxolyn] 2.5 mg PO DAILY 08/04/17 10/01/17 Aspirin [Ecotrin] 81 mg PO DAILY 10/01/17 10/01/17 Atorvastatin [Lipitor] 20 mg PO DAILY 10/01/17 10/01/17 Physical Exam Vital Signs Temp Pulse Resp BP Pulse Ox 10/01/17 16:11 98.5 F 68 20 138/74 91 L Medical Decision Making - Lab Interpretations Narrative Lab Interpretation (Text): 10/01/17 16:57 patient's potassium is noted to be 2.4 we will replace it orally and intravenousl Interpretation: Abnormal lab values Disposition/Present on Arrival - Present on Arrival History of DVT/PE: No History of Uncontrolled Diabetes: No Urinary Catheter: No History of Decub. Ulcer: No History Surgical Site Infection Following: None - Disposition Referrals: Franco IRENE,Ronnie Wolf MD [Primary Care Provider] - Follow up with primary
[2017-10-01 17:07] LABS: BASO # 0.01 K/mm3 (0.0-2.0); BASO % 0.2 % (0.0-3.0); EOS # 0.1 (0.0-0.7); EOS % 1.2 % (1.5-5.0); GRAN # 3.15 (1.4-6.5); GRAN % 74.7 % (50.0-68.0); HEMATOCRIT 31.3 % (42.0-52.0); LYMPH # 0.6 (1.2-3.4); LYMPH % 13.7 % (22.0-35.0); MEAN CELL VOLUME 98.7 fl (80.0-105.0); MEAN CORPUSCULAR HGB CONC 30.4 g/dl (31.0-37.0); MEAN PLATELET VOLUME 10.1 fl (7.0-11.0); MONO # 0.4 (0.1-0.6); MONO % 10.2 % (1.0-6.0); RED CELL DISTRIBUTION WIDTH 19.2 % (11.5-14.5); WHITE BLOOD COUNT 4.2 10^3/ul (4.5-11.0)
--- NOTE | 2017-10-01 17:07 | ED PDOC ---
Arrival/HPI - General Chief Complaint: Weakness/Neurological Deficit Time Seen by Provider: 10/01/17 16:25 Historian: Patient - History of Present Illness Narrative History of Present Illness (Text): 10/01/17 17:06 An 81 year old male, whose past medical history includes chronic anemia, chronic GI, CHF, hypertension, diabetes, presents to the emergency department complaining of bilateral leg swelling and dizziness. Patient's recovery assistant also reports patient has a low blood count, hemoglobin of 9. Patient denies any shortness of breath, abdominal pain, nausea, vomiting, bloody or black stools or any other complaints at this time. PMD: Dr. Ronnie Gamez [employer] Bus Driver: Dr. Clemens Symptom Onset: Sudden Symptom Course: Unchanged Activities at Onset: Rest Context: Home Past Medical History - Provider Review Nursing Documentation Reviewed: Yes - Infectious Disease Hx of Infectious Diseases: None - Tetanus Immunization Tetanus Immunization: Unknown - Cardiac Hx Cardiac Disorders: (mi) Hx Congestive Heart Failure: Yes Hx Hypertension: Yes Hx Internal Defibrillator: Yes (2011) Hx Pacemaker: Yes (2011) Hx Peripheral Edema: Yes (+2 pitting bld) Hx Peripheral Vascular Disease: Yes Other/Comment: mitral valve repair, quadruple bypass at [facility] - Pulmonary Hx Bronchitis: Yes Hx Pneumonia: Yes Hx Sleep Apnea: Yes (cpap at home) - Neurological Hx Neurological Disorder: No - HEENT Hx HEENT Disorder: Yes (sinusitis, eyeglasses) - Renal Hx Kidney Stones: Yes - Endocrine/Metabolic Hx Endocrine Disorders: Yes Hx Diabetes Mellitus Type 2: Yes - Hematological/Oncological Hx Blood Disorders: Yes Hx Anemia: Yes (iron deficiency, tx by dr clemens) Other/Comment: venofer iv, pt denies blood transfusions - Integumentary Other/Comment: b/l arms skin discolorations - Musculoskeletal/Rheumatological Hx Falls: No - Gastrointestinal Other/Comment: GI BLEED - Psychiatric Hx Emotional Abuse: No Hx Physical Abuse: No Hx Substance Use: No - Surgical History Hx Coronary Artery Bypass Graft: Yes (QUADRUPLE) - Anesthesia Hx Anesthesia Reactions: No - Suicidal Assessment Feels Threatened In Home Enviroment: No Family/Social History - Physician Review Nursing Documentation Reviewed: Yes Family/Social History: No Known Family HX Smoking Status: Never Smoked Hx Alcohol Use: No Hx Substance Use: No Allergies/Home Meds Allergies/Adverse Reactions: Allergies No Known Allergies Allergy (Verified 08/05/17 14:08) Home Medications: Home Meds Medication Instructions Recorded Confirmed Carvedilol [Coreg] 6.25 mg PO BID 10/12/15 10/01/17 Metformin HCl 500 mg PO BID 10/12/15 10/01/17 Furosemide [Lasix] 40 mg PO BID 07/10/16 10/01/17 metOLazone [Zaroxolyn] 2.5 mg PO DAILY 08/04/17 10/01/17 Aspirin [Ecotrin] 81 mg PO DAILY 10/01/17 10/01/17 Atorvastatin [Lipitor] 20 mg PO DAILY 10/01/17 10/01/17 Review of Systems - Physician Review All systems were reviewed & negative as marked: Yes - Review of Systems Respiratory: absent: SOB Gastrointestinal: absent: Abdominal Pain, Stool Changes, Nausea, Vomiting Musculoskeletal: Other (bilateral leg swelling) Neurological: Dizziness Physical Exam Vital Signs Reviewed: Yes Vital Signs Temp Pulse Resp BP Pulse Ox 10/01/17 20:53 70 18 127/69 97 10/01/17 19:06 128/63 10/01/17 17:36 69 18 132/71 98 10/01/17 16:11 98.5 F 68 20 138/74 91 L Temperature: Afebrile Blood Pressure: Normal Pulse: Regular Respiratory Rate: Normal Appearance: Positive for: Well-Appearing, Non-Toxic, Comfortable Pain Distress: None Mental Status: Positive for: Alert and Oriented X 3 - Systems Exam Head: Present: Atraumatic, Normocephalic Pupils: Present: PERRL Extroacular Muscles: Present: EOMI Conjunctiva: Present: Normal Mouth: Present: Moist Mucous Membranes Neck: Present: Normal Range of Motion Respiratory/Chest: Present: Other (diminished breath sounds, both bases). No: Respiratory Distress, Accessory Muscle Use Cardiovascular: Present: Regular Rate and Rhythm, Normal S1, S2. No: Murmurs Abdomen: Present: Normal Bowel Sounds. No: Tenderness, Distention, Peritoneal Signs Back: Present: Normal Inspection Upper Extremity: Present: Normal Inspection. No: Cyanosis, Edema Lower Extremity: Present: Other (2-3+ bipedal edema, nontender) Neurological: Present: GCS=15, CN II-XII Intact, Speech Normal Skin: Present: Warm, Dry, Normal Color. No: Rashes Psychiatric: Present: Alert, Oriented x 3, Normal Insight, Normal Concentration Medical Decision Making ED Course and Treatment: 10/01/17 17:04 Impression: An 81 year old male with bilateral leg swelling and dizziness. Plan: -- EKG -- labs -- Urinalysis -- Potassium Chloride -- Reassess and disposition Prior Visits: Notes and results from previous visits were reviewed. Patient was last seen in the emergency department on 09/11/17 for evaluation of bipedal edema. Progress Notes: EKG: Ordered, reviewed, and independently interpreted the EKG. Rate : 72 BPM Rhythm : NSR Interpretation : ventricular paste rhythm, 100% capture, wide complex QRS left bundloid configuration, no acute ischemic changes, no ectopy Will need to admit patient to hospital for blood transfusion. Patient's potassium level to be 2.4. 10/01/17 18:27 Patient was admitted to the hospital on 08/05/17 for acute on chronic systolic heart failure and acute on chronic renal insufficiency. Patient was treated for heart failure in ICU with IV lasix and milrinone infusion. Patient diuresed over a few days and had a 15 pound weight loss. Lasix lowered to 20 mg bid. Labs demonstrated contraction alkalosis. Patient was discharged with Coreg, Lisinopril, Lasix, Lipitor and Pepcid. Patient on Metformin. Review of labs currently demonstrates h and h of 9.5 and 31 and contraction alkalosis bicarb of 53. Cardiac enzymes are negative. Awaiting BNP and chest xray to make final disposition. 10/01/17 19:45 Will admit patient to remote [facility] for chronic CHF and contraction alkalosis. - Lab Interpretations Narrative Lab Interpretation (Text): 10/01/17 16:57 patient's potassium is noted to be 2.4. We will replace it orally and intravenously. Lab Results: 10/01/17 17:03 10/01/17 17:03 Lab Results 10/01/17 18:45: Urine Color Yellow, Urine Appearance Clear, Urine pH 6.0, Ur Specific [place] 1.020, Urine Protein Trace H, Urine Glucose (UA) Negative, Urine Ketones Negative, Urine Blood Negative, Urine Nitrate Negative, Urine Bilirubin Negative, Urine Urobilinogen 1.0 H, Ur Leukocyte Esterase Negative, Urine RBC Negative, Urine WBC 0 - 2, Ur Epithelial Cells 0 - 2, Urine Bacteria Mod 10/01/17 17:03: NT-Pro-B Natriuret Pep 7330 H 10/01/17 17:03: Sodium 136, Potassium 3.6, Chloride 78 L, Carbon Dioxide 53 H D , Anion Gap 9 L, BUN 55 H, Creatinine 1.3, Est GFR ( Amer) > 60, Est GFR (Non-Af Amer) 53, Random Glucose 121 H, Calcium 8.5, Total Bilirubin 1.0, AST 37 , ALT 28, Alkaline Phosphatase 256 H, Lactate Dehydrogenase 429, Total Creatine Kinase < 20 L, Troponin I 0.03, Total Protein 7.2, Albumin 3.5, Globulin 3.7, Albumin/Globulin Ratio 0.9 L, Amylase 77, Lipase 47 10/01/17 17:03: PT 13.6 H, INR 1.24 H, APTT 35.1 10/01/17 17:03: WBC 4.2 L D, RBC 3.17 L, Hgb 9.5 L, Hct 31.3 L, MCV 98.7, MCH 30.0, MCHC 30.4 L, RDW 19.2 H, Plt Count 150, MPV 10.1, Gran % 74.7 H, Lymph % ( Auto) 13.7 L, [place] % (Auto) 10.2 H, Eos % (Auto) 1.2 L, Baso % (Auto) 0.2, Gran # 3.15, Lymph # 0.6 L, Turner # 0.4, Eos # 0.1, Baso # 0.01 I have reviewed the lab results: Yes Interpretation: Abnormal lab values - RAD Interpretation Radiology Orders: 10/01/17 18:01 CHEST PORTABLE [RAD] Stat - EKG Interpretation Interpreted by ED Physician: Yes Type: 12 lead EKG - Medication Orders Current Medication Orders: Discontinued Medications Furosemide (Lasix) 60 mg IVP STAT STA Stop: 10/01/17 18:53 Furosemide (Lasix) 60 mg IVP STAT STA Stop: 10/01/17 18:57 Last Admin: 10/01/17 19:06 Dose: 60 mg MAR Blood Pressure Document 10/01/17 19:06 GMD (Rec: 10/01/17 19:08 GMD [facility] [id number]) Blood Pressure Blood Pressure (100/60-150/90) 128/63 IVP Administration Document 10/01/17 19:06 [facility] (Rec: 10/01/17 19:08 [id number]) Charges for Administration # of IVP Administrations 1 Pneumococcal Polyvalent Vaccine (Pneumovax 23 Vaccine) 0.5 ml IM .ONCE ONE Stop: 10/01/17 22:22 - Scribe Statement The provider has reviewed the documentation as recorded by the [place] Provider Scribe Attestation: All medical record entries made by the Scribe were at my direction and personally dictated by me. I have reviewed the chart and agree that the record accurately reflects my personal performance of the history, physical exam, medical decision making, and the department course for this patient. I have also personally directed, reviewed, and agree with the discharge instructions and disposition. Disposition/Present on Arrival - Present on Arrival Any Indicators Present on Arrival: No History of DVT/PE: No History of Uncontrolled Diabetes: No Urinary Catheter: No History of Decub. Ulcer: No History Surgical Site Infection Following: None - Disposition Have Diagnosis and Disposition been Completed?: Yes Diagnosis: Chronic systolic heart failure Disposition: HOSPITALIZED Disposition Time: 19:41 Patient Plan: Admission Patient Problems: Current Active Problems Problem Status Onset Chronic systolic heart failure Acute Condition: FAIR
[2017-10-01 17:18] LABS: INR 1.24 (0.93-1.08); PARTIAL THROMBOPLASTIN TIME 35.1 Seconds (25.1-36.5)
[2017-10-01 17:40] LABS: TROPONIN I 0.03 ng/mL
[2017-10-01 17:47] LABS: ALB/GLOB RATIO 0.9 (1.1-1.8); ALKALINE PHOSPHATASE 256 U/L (38-126); ALT/SGPT 28 U/L (7-56); AMYLASE 77 U/L (35-125); AST/SGOT 37 U/L (17-59); BLOOD UREA NITROGEN 55 mg/dL (7-21); CALCIUM 8.5 mg/dL (8.4-10.5); CARBON DIOXIDE 53 mmol/L (21-33); CHLORIDE 78 mmol/L (98-107); GFR AFRICAN-AMERICAN > 60; GLUCOSE,RANDOM 121 mg/dL (70-110); LIPASE 47 U/L (23-300); POTASSIUM 3.6 mmol/L (3.6-5.0); SODIUM 136 mmol/L (132-148); TOTAL PROTEIN 7.2 g/dL (5.8-8.3)
[2017-10-01 19:06] LABS: URINE BILIRUBIN NEGATIVE (NEGATIVE); URINE BLOOD NEGATIVE (NEGATIVE); URINE GLUCOSE (UA) NEGATIVE (NEGATIVE); URINE KETONE NEGATIVE (NEGATIVE); URINE LEUKOCYTE ESTERASE NEGATIVE Leu/uL (NEGATIVE); URINE PROTEIN TRACE mg/dL (<30 mg/dL)
[2017-10-01 19:11] LABS: URINE APPEARANCE CLEAR (CLEAR); URINE COLOR YELLOW (YELLOW)
[2017-10-01 19:27] LABS: URINE BACTERIA MOD (NEG); URINE EPITHELIAL CELLS 0 - 2 /hpf (0-5); URINE RBC NEGATIVE /hpf (0-2); URINE WBC 0 - 2 /hpf (0-6)
[2017-10-01 22:20] VITALS: BMI 25.8
[2017-10-01] MEDS ORDERED: Pneumococcal 23-Valent Vaccine IM ONE (22:21)
[2017-10-01] MEDS ORDERED: Influenza Vaccine 60 mcg/0.5 mL SYR (4YR UP) IM ONE (22:21)
--- NOTE | 2017-10-01 22:55 | CARD ---
APPROVED REPORT EKG Measurement [id number] <Conclusion> Electronic ventricular pacemaker
--- NOTE | 2017-10-02 00:24 | CP.PCM.PN ---
Subjective - Date & Time of Evaluation Date of Evaluation: 10/02/17 Time of Evaluation: 00:24 - Subjective Subjective: Patient was seen at bedside. As per nurse patient had audible wheeze. Patient complains of sob. Denies any chest pain. medical record was reviewed. This 81 year old white male was admitted for dizziness , bilateral leg swelling. Has PMH of COPD, recurrednt CHF, CAD, HTN,DM, chronic anemia, heart surgery , S /P aortic valve replacement,AICD. Objective - Vital Signs/Intake and Output Vital Signs (last 24 hours): Temp Pulse Resp BP Pulse Ox 97.6 F 68 18 137/64 97 10/01/17 21:56 10/01/17 21:56 10/01/17 21:56 10/01/17 21:56 10/01/17 20:53 - Medications Medications: Current Medications Aspirin (Ecotrin) 81 mg PO DAILY CLARA Carvedilol (Coreg) 6.25 mg PO BID CLARA Furosemide (Lasix) 60 mg IVP Q12H CLARA Metformin HCl (Glucophage) 500 mg PO BID CLARA Metolazone (Zaroxolyn) 2.5 mg PO DAILY CLARA Zolpidem Tartrate (Ambien) 5 mg PO HS PRN; Protocol PRN Reason: Insomnia Last Admin: 10/01/17 23:53 Dose: 5 mg - Labs Labs: PT 13.6 SECONDS (9.4-12.5) H 10/01/17 17:03 INR 1.24 (0.93-1.08) H 10/01/17 17:03 APTT 35.1 Seconds (25.1-36.5) 10/01/17 17:03 Most Recent Lab Values WBC 4.2 10^3/ul (4.5-11.0) L D 10/01/17 17:03 RBC 3.17 10^6/uL (3.5-6.1) L 10/01/17 17:03 Hgb 9.5 g/dL (14.0-18.0) L 10/01/17 17:03 Hct 31.3 % (42.0-52.0) L 10/01/17 17:03 MCV 98.7 fl (80.0-105.0) 10/01/17 17:03 MCH 30.0 pg (25.0-35.0) 10/01/17 17:03 MCHC 30.4 g/dl (31.0-37.0) L 10/01/17 17:03 RDW 19.2 % (11.5-14.5) H 10/01/17 17:03 Plt Count 150 10^3/uL (120.0-450.0) 10/01/17 17:03 MPV 10.1 fl (7.0-11.0) 10/01/17 17:03 Gran % 74.7 % (50.0-68.0) H 10/01/17 17:03 Lymph % (Auto) 13.7 % (22.0-35.0) L 10/01/17 17:03 [place] % (Auto) 10.2 % (1.0-6.0) H 10/01/17 17:03 Eos % (Auto) 1.2 % (1.5-5.0) L 10/01/17 17:03 Baso % (Auto) 0.2 % (0.0-3.0) 10/01/17 17:03 Gran # 3.15 (1.4-6.5) 10/01/17 17:03 Lymph # 0.6 (1.2-3.4) L 10/01/17 17:03 [place] # 0.4 (0.1-0.6) 10/01/17 17:03 Eos # 0.1 (0.0-0.7) 10/01/17 17:03 Baso # 0.01 K/mm3 (0.0-2.0) 10/01/17 17:03 PT 13.6 SECONDS (9.4-12.5) H 10/01/17 17:03 INR 1.24 (0.93-1.08) H 10/01/17 17:03 APTT 35.1 Seconds (25.1-36.5) 10/01/17 17:03 Sodium 136 mmol/L (132-148) 10/01/17 17:03 Potassium 3.6 mmol/L (3.6-5.0) 10/01/17 17:03 Chloride 78 mmol/L (98-107) L 10/01/17 17:03 Carbon Dioxide 53 mmol/L (21-33) H D 10/01/17 17:03 Anion Gap 9 (10-20) L 10/01/17 17:03 BUN 55 mg/dL (7-21) H 10/01/17 17:03 Creatinine 1.3 mg/dl (0.8-1.5) 10/01/17 17:03 Est GFR ( Amer) > 60 10/01/17 17:03 Est GFR (Non-Af Amer) 53 10/01/17 17:03 Random Glucose 121 mg/dL (70-110) H 10/01/17 17:03 Calcium 8.5 mg/dL (8.4-10.5) 10/01/17 17:03 Total Bilirubin 1.0 mg/dL (0.2-1.3) 10/01/17 17:03 AST 37 U/L (17-59) 10/01/17 17:03 ALT 28 U/L (7-56) 10/01/17 17:03 Alkaline Phosphatase 256 U/L (38-126) H 10/01/17 17:03 Lactate Dehydrogenase 429 U/L (333-699) 10/01/17 17:03 Total Creatine Kinase < 20 U/L (35-230) L 10/01/17 17:03 Troponin I 0.03 ng/mL 10/01/17 17:03 NT-Pro-B Natriuret Pep 7330 pg/mL (0-450) H 10/01/17 17:03 Total Protein 7.2 g/dL (5.8-8.3) 10/01/17 17:03 Albumin 3.5 g/dL (3.0-4.8) 10/01/17 17:03 Globulin 3.7 gm/dL 10/01/17 17:03 Albumin/Globulin Ratio 0.9 (1.1-1.8) L 10/01/17 17:03 Amylase 77 U/L (35-125) 10/01/17 17:03 Lipase 47 U/L (23-300) 10/01/17 17:03 Urine Color Yellow (YELLOW) 10/01/17 18:45 Urine Appearance Clear (CLEAR) 10/01/17 18:45 Urine pH 6.0 (4.7-8.0) 10/01/17 18:45 Ur Specific [place] 1.020 (1.005-1.035) 10/01/17 18:45 Urine Protein Trace mg/dL (<30 mg/dL) H 10/01/17 18:45 Urine Glucose (UA) Negative mg/dL (NEGATIVE) 10/01/17 18:45 Urine Ketones Negative mg/dL (NEGATIVE) 10/01/17 18:45 Urine Blood Negative (NEGATIVE) 10/01/17 18:45 Urine Nitrate Negative (NEGATIVE) 10/01/17 18:45 Urine Bilirubin Negative (NEGATIVE) 10/01/17 18:45 Urine Urobilinogen 1.0 E.U./dL (<1 E.U./dL) H 10/01/17 18:45 Ur Leukocyte Esterase Negative Marika/uL (NEGATIVE) 10/01/17 18:45 Urine RBC Negative /hpf (0-2) 10/01/17 18:45 Urine WBC 0 - 2 /hpf (0-6) 10/01/17 18:45 Ur Epithelial Cells 0 - 2 /hpf (0-5) 10/01/17 18:45 Urine Bacteria Mod (NEG) 10/01/17 18:45 - Constitutional Appears: No Acute Distress - Head Exam Head Exam: ATRAUMATIC, NORMAL INSPECTION, NORMOCEPHALIC - Eye Exam Eye Exam: Normal appearance - ENT Exam ENT Exam: Mucous Membranes Moist - Neck Exam Neck Exam: Normal Inspection - Respiratory Exam Respiratory Exam: Rales (Bilateral basal.), Wheezes (Bilateral.), NORMAL BREATHING PATTERN - Cardiovascular Exam Cardiovascular Exam: REGULAR RHYTHM - GI/Abdominal Exam GI & Abdominal Exam: absent: Distended - Rectal Exam Rectal Exam: Deferred - Exam Additional comments: Deferred - Extremities Exam Extremities Exam: Pedal Edema (2+) - Back Exam Back Exam: NORMAL INSPECTION - Neurological Exam Neurological Exam: Alert, Oriented x3 - Psychiatric Exam Psychiatric exam: Normal Affect, Normal Mood - Skin Skin Exam: Normal Color Assessment and Plan - Assessment and Plan (Free Text) Assessment: Wheezing. CHF. CAD. COPD. DM II. Hypertension. Anemia. Plan: Lasix 80 mg IV x1. Lasix 40 mg IV x 1. Duoneb neb treatment x 1. Continue present management.
[2017-10-02] MEDS ORDERED: Albuterol-Ipratrop 3 mg / 0.5 (3 ml) UD IH STA (03:04)
[2017-10-02 07:47] LABS: HEMATOCRIT 28.6 % (42.0-52.0); MEAN CELL VOLUME 97.9 fl (80.0-105.0); MEAN CORPUSCULAR HEMOGLOBIN 30.1 pg (25.0-35.0); MEAN CORPUSCULAR HGB CONC 30.8 g/dl (31.0-37.0); MEAN PLATELET VOLUME 10.4 fl (7.0-11.0); RED CELL DISTRIBUTION WIDTH 19.1 % (11.5-14.5); WHITE BLOOD COUNT 3.1 10^3/ul (4.5-11.0)
[2017-10-02 08:15] LABS: ALKALINE PHOSPHATASE 220 U/L (38-126); ALT/SGPT 26 U/L (7-56); AST/SGOT 28 U/L (17-59); BILIRUBIN,TOTAL 0.9 mg/dL (0.2-1.3); BLOOD UREA NITROGEN 50 mg/dL (7-21); CALCIUM 8.4 mg/dL (8.4-10.5); CHLORIDE 79 mmol/L (98-107); GFR AFRICAN-AMERICAN > 60; GLUCOSE,RANDOM 135 mg/dL (70-110); SODIUM 137 mmol/L (132-148); TOTAL PROTEIN 6.6 g/dL (5.8-8.3)
[2017-10-02 08:36] LABS: CARBON DIOXIDE 55 mmol/L (21-33); POTASSIUM 2.8 mmol/L (3.6-5.0)
[2017-10-02] MEDS ORDERED: Potassium Chloride 20 mEq ER Tab PO ONE (08:50)
[2017-10-02] MEDS: Insulin Reg-MEDIUM-Coverage SC SCH ×4 (08:51→22:18)
[2017-10-02 09:14] LABS: TROPONIN I 0.05 ng/mL
[2017-10-02] MEDS ORDERED: metOLazone 2.5 MG TAB PO SCH (10:00)
--- NOTE | 2017-10-02 10:01 | RAD ---
HISTORY: Sepsis Patient COMPARISON: 09/11/2017 FINDINGS: LUNGS: Opacity left perihilar and right base common nonspecific. No significant change from prior. Possible pulmonary edema. Rule out pneumonia. PLEURA: Large left pleural effusion and small right pleural effusion, grossly unchanged. No pneumothorax. CARDIOVASCULAR: Sternotomy wires. AICD. OSSEOUS STRUCTURES: No significant abnormalities. VISUALIZED UPPER ABDOMEN: Normal. OTHER FINDINGS: None. IMPRESSION: Bilateral infiltrates and large left pleural effusion with small right pleural effusion. Possible pulmonary edema. Rule out pneumonia. No significant change.
--- NOTE | 2017-10-02 14:46 | HP ---
HISTORY OF PRESENT ILLNESS: The patient is an 81 year old man with past medical history of CAD s/p CABG x 2, ischemic cardiomyopathy s/p AICD and history of MVR/AVR who presented to [facility] ED for evaluation of a 3 day history of worsening lower extremity edema, orthopnea and exertional dyspnea. The patient has had multiple admissions in the past for CHF exacerbation due to medication noncompliance and has signed out AMA previously despite inadequate diuresis. Prior to this admission the patient reported progressively worsening pedal edema and dyspnea as well as development of cough intermittently productive of clear sputum. Given his worsening symptoms he opted for ED evaluation. Upon arrival to the ED he was noted to be tachypneic with moderate respiratory distress as well as hypoxic. He received Lasix intravenously in the ED and was subsequently admitted to the telemetry [facility] for continued management of acute on chronic systolic heart failure exacerbation. PAST MEDICAL HISTORY: As per HPI, also hypertension, T2DM, iron deficiency anemia (on monthly IV iron infusions), MANAN and insomnia. PAST SURGICAL HISTORY: As per HPI. FAMILY HISTORY: Significant for hypertension, diabetes and colon cancer in his father. MEDICATIONS: Coreg 6.25 mg p.o. b.i.d., Lasix 40 mg p.o. b.i.d., Lipitor 20 mg p.o. daily, Pepcid 20 mg p.o. b.i.d., Metformin 500 mg p.o. b.i.d., Valium 5 mg p.o. at bedtime and Aspirin 81 mg p.o. daily. ALLERGIES: NO KNOWN DRUG ALLERGIES. SOCIAL HISTORY: The patient reports a former 30-pack year smoking history, but quit several years ago. He reports social alcohol use and denies illicit drug abuse. REVIEW OF SYSTEMS: A 14-point review of systems is negative except as per HPI. PHYSICAL EXAMINATION: VITAL SIGNS: Temperature 98.1, pulse 70, blood pressure 112/56, respiratory rate 18, oxygen saturation 96% on 2 L nasal cannula. GENERAL: Fair elderly man, appearing his stated age, lying in bed, in no apparent distress. HEENT: PERRLA, EOMI. No scleral icterus. Mild conjunctival pallor is noted. NECK: No JVD. No bruits. LUNGS: Bibasilar crackles with scattered rhonchi. CARDIOVASCULAR: Regular rate and rhythm. Normal S1 and S2. Grade II/ ANGEL to RUSB, Grade II/ murmur to LLSB. AICD to left anterior chest wall.l. ABDOMEN: Normal active bowel sounds. Soft, nontender, nondistended. EXTREMITIES: 1+ lower extremity edema bilaterally to the knees. NEUROLOGIC: Alert, awake, and oriented x3. No focal motor deficits. LABORATORY DATA: WBC 3.1, hemoglobin 8.8, hematocrit 28, platelets 138. Chemistry pending. BNP 7330. IMAGING STUDIES: Chest x-ray demonstrates bilateral pulmonary venous congestion in CHF pattern. IMPRESSION: The patient is an 81 year old man with CAD s/p CABG x 2, ischemic cardiomyopathy s/p AICD, history of AVR/MVR and hypertension who presented with a several day history of worsening lower extremity edema, orthopnea and exertional dyspnea and who was admitted to the telemetry [facility] for management of acute on chronic systolic heart failure exacerbation. PLAN: 1. Acute on chronic systolic heart failure exacerbation. The patient is s/p aggressive diuresis with IV Lasix and this morning reports significant improvement in his respiratory status. Continue with Lasix 60 mg IV q. 12 hours and Zaroxolyn 2.[address] Leach of Cardiology has been consulted for further evaluation and recommendations. 2. Ischemic cardiomyopathy s/p AICD. Continue Coreg 6.25 mg p.o. b.i.d and telemetry monitoring. 3. CAD s/p CABG x 2. Continue Coreg 6.25 mg p.o. b.i.d., Aspirin 81 mg p.o. daily and Lipitor 20 mg p.o. daily. 4. Kkm-[id number] diabetes mellitus. Continue metformin 500 mg p.o. b.i.d. 5. Hypertension. Blood pressure controlled. Continue current medications. 6. Iron deficiency anemia. Labs demonstrating hemoglobin of 8.8 which is at the patient's baseline. Continue to monitor CBC daily. 7. Insomnia. Continue Valium 5 mg p.o. at bedtime. 8. Prophylaxis. GI prophylaxis not indicated as the patient is eating. DVT prophylaxis not indicated as patient is ambulatory. CODE STATUS: FULL CODE. Ronnie Gamez MD MTDD
[2017-10-02 14:55] LABS: TROPONIN I 0.05 ng/mL
[2017-10-02] MEDS ORDERED: Albuterol-Ipratrop 3 mg / 0.5 (3 ml) UD IH PRN (15:17)
[2017-10-02] MEDS: Albuterol-Ipratrop 3 mg / 0.5 (3 ml) UD IH SCH ×2 (15:34→19:59)
[2017-10-02] MEDS ORDERED: metOLazone 2.5 MG TAB PO STA (15:54)
[2017-10-03] MEDS: Albuterol-Ipratrop 3 mg / 0.5 (3 ml) UD IH SCH ×5 (00:10→14:52)
--- NOTE | 2017-10-03 00:37 | CP.PCM.PN ---
Subjective - Date & Time of Evaluation Date of Evaluation: 10/03/17 Time of Evaluation: 00:36 - Subjective Subjective: Patient was seen because he has audible wheezing, is restless. Has no complaints. 81 year old white male was admitted for bilateral leg ,swelling.dizziness. PMH of CHF,COPD, CAD, HTN,DM, chronic anemia, heart surgery , S/P aortic valve replacement,AICD. Objective - Vital Signs/Intake and Output Vital Signs (last 24 hours): Temp Pulse Resp BP Pulse Ox 98.1 F 67 18 112/65 96 10/02/17 08:13 10/02/17 18:00 10/02/17 08:13 10/02/17 17:23 10/02/17 08:13 Intake and Output: 10/02/17 10/03/17 18:59 06:59 Intake Total 720 Output Total 650 Balance 720 -650 - Medications Medications: Current Medications Albuterol/Ipratropium (Duoneb 3 Mg/0.5 Mg (3 Ml) Ud) 3 ml IH Q2H PRN PRN Reason: Shortness of Breath Albuterol/Ipratropium (Duoneb 3 Mg/0.5 Mg (3 Ml) Ud) 3 ml IH [id number] [facility] Last Admin: 10/03/17 00:10 Dose: 3 ml Aspirin (Ecotrin) 81 mg PO DAILY [facility] Last Admin: 10/02/17 09:13 Dose: 81 mg Carvedilol (Coreg) 6.25 mg PO BID [facility] Last Admin: 10/02/17 17:23 Dose: 6.25 mg Furosemide (Lasix) 60 mg IVP Q12H [facility] Last Admin: 10/02/17 17:22 Dose: 60 mg Insulin Human Regular (Humulin R Med) 0 units SC ACHS CLARA PRN Reason: Protocol Last Admin: 10/02/17 22:18 Dose: Not Given Metformin HCl (Glucophage) 500 mg PO BID [facility] Last Admin: 10/02/17 17:23 Dose: 500 mg Metolazone (Zaroxolyn) 2.5 mg PO DAILY [facility] Zolpidem Tartrate (Ambien) 5 mg PO HS PRN; Protocol PRN Reason: Insomnia Last Admin: 10/02/17 21:16 Dose: 5 mg - Labs Labs: 10/02/17 07:30 10/02/17 06:20 PT 13.6 SECONDS (9.4-12.5) H 10/01/17 17:03 INR 1.24 (0.93-1.08) H 10/01/17 17:03 APTT 35.1 Seconds (25.1-36.5) 10/01/17 17:03 Laboratory Last Values WBC 3.1 10^3/ul (4.5-11.0) L D 10/02/17 07:30 RBC 2.92 10^6/uL (3.5-6.1) L 10/02/17 07:30 Hgb 8.8 g/dL (14.0-18.0) L 10/02/17 07:30 Hct 28.6 % (42.0-52.0) L 10/02/17 07:30 MCV 97.9 fl (80.0-105.0) 10/02/17 07:30 MCH 30.1 pg (25.0-35.0) 10/02/17 07:30 MCHC 30.8 g/dl (31.0-37.0) L 10/02/17 07:30 RDW 19.1 % (11.5-14.5) H 10/02/17 07:30 Plt Count 138 10^3/uL (120.0-450.0) 10/02/17 07:30 MPV 10.4 fl (7.0-11.0) 10/02/17 07:30 Gran % 74.7 % (50.0-68.0) H 10/01/17 17:03 Lymph % (Auto) 13.7 % (22.0-35.0) L 10/01/17 17:03 [place] % (Auto) 10.2 % (1.0-6.0) H 10/01/17 17:03 Eos % (Auto) 1.2 % (1.5-5.0) L 10/01/17 17:03 Baso % (Auto) 0.2 % (0.0-3.0) 10/01/17 17:03 Gran # 3.15 (1.4-6.5) 10/01/17 17:03 Lymph # 0.6 (1.2-3.4) L 10/01/17 17:03 [place]ala # 0.4 (0.1-0.6) 10/01/17 17:03 Eos # 0.1 (0.0-0.7) 10/01/17 17:03 Baso # 0.01 K/mm3 (0.0-2.0) 10/01/17 17:03 PT 13.6 SECONDS (9.4-12.5) H 10/01/17 17:03 INR 1.24 (0.93-1.08) H 10/01/17 17:03 APTT 35.1 Seconds (25.1-36.5) 10/01/17 17:03 Sodium 137 mmol/L (132-148) 10/02/17 06:20 Potassium 2.8 mmol/L (3.6-5.0) L* D 10/02/17 06:20 Chloride 79 mmol/L (98-107) L 10/02/17 06:20 Carbon Dioxide 55 mmol/L (21-33) H 10/02/17 06:20 Anion Gap 6 (10-20) L 10/02/17 06:20 BUN 50 mg/dL (7-21) H 10/02/17 06:20 Creatinine 1.3 mg/dl (0.8-1.5) 10/02/17 06:20 Est GFR ( Amer) > 60 10/02/17 06:20 Est GFR (Non-Af Amer) 53 10/02/17 06:20 POC Glucose (mg/dL) 150 mg/dL (65-110) H 10/02/17 11:47 Random Glucose 135 mg/dL (70-110) H 10/02/17 06:20 Calcium 8.4 mg/dL (8.4-10.5) 10/02/17 06:20 Total Bilirubin 0.9 mg/dL (0.2-1.3) 10/02/17 06:20 AST 28 U/L (17-59) 10/02/17 06:20 ALT 26 U/L (7-56) 10/02/17 06:20 Alkaline Phosphatase 220 U/L (38-126) H 10/02/17 06:20 Lactate Dehydrogenase 412 U/L (333-699) 10/02/17 14:05 Total Creatine Kinase < 20 U/L (35-230) L 10/02/17 14:05 Troponin I 0.05 ng/mL 10/02/17 14:05 NT-Pro-B Natriuret Pep 7330 pg/mL (0-450) H 10/01/17 17:03 Total Protein 6.6 g/dL (5.8-8.3) 10/02/17 06:20 Albumin 3.3 g/dL (3.0-4.8) 10/02/17 06:20 Globulin 3.4 gm/dL 10/02/17 06:20 Albumin/Globulin Ratio 1.0 (1.1-1.8) L 10/02/17 06:20 Amylase 77 U/L (35-125) 10/01/17 17:03 Lipase 47 U/L (23-300) 10/01/17 17:03 Urine Color Yellow (YELLOW) 10/01/17 18:45 Urine Appearance Clear (CLEAR) 10/01/17 18:45 Urine pH 6.0 (4.7-8.0) 10/01/17 18:45 Ur Specific [place] 1.020 (1.005-1.035) 10/01/17 18:45 Urine Protein Trace mg/dL (<30 mg/dL) H 10/01/17 18:45 Urine Glucose (UA) Negative mg/dL (NEGATIVE) 10/01/17 18:45 Urine Ketones Negative mg/dL (NEGATIVE) 10/01/17 18:45 Urine Blood Negative (NEGATIVE) 10/01/17 18:45 Urine Nitrate Negative (NEGATIVE) 10/01/17 18:45 Urine Bilirubin Negative (NEGATIVE) 10/01/17 18:45 Urine Urobilinogen 1.0 E.U./dL (<1 E.U./dL) H 10/01/17 18:45 Ur Leukocyte Esterase Negative Marika/uL (NEGATIVE) 10/01/17 18:45 Urine RBC Negative /hpf (0-2) 10/01/17 18:45 Urine WBC 0 - 2 /hpf (0-6) 10/01/17 18:45 Ur Epithelial Cells 0 - 2 /hpf (0-5) 10/01/17 18:45 Urine Bacteria Mod (NEG) 10/01/17 18:45 - Constitutional Appears: Well, No Acute Distress - Head Exam Head Exam: ATRAUMATIC, NORMAL INSPECTION, NORMOCEPHALIC - Eye Exam Eye Exam: Normal appearance - ENT Exam ENT Exam: Normal External Ear Exam - Neck Exam Neck Exam: Normal Inspection - Respiratory Exam Respiratory Exam: Rales (Bilateral.), Wheezes (Bilateral.), NORMAL BREATHING PATTERN - Cardiovascular Exam Cardiovascular Exam: REGULAR RHYTHM - GI/Abdominal Exam GI & Abdominal Exam: Normal Bowel Sounds - Rectal Exam Rectal Exam: Deferred - Exam Additional comments: Deferred. - Extremities Exam Extremities Exam: Normal Inspection - Back Exam Back Exam: NORMAL INSPECTION - Neurological Exam Neurological Exam: Alert, Oriented x3 - Psychiatric Exam Psychiatric exam: Normal Affect, Normal Mood - Skin Skin Exam: Normal Color Assessment and Plan - Assessment and Plan (Free Text) Assessment: Insomnia. Wheezing. CHF. HTN. DM. CAD. COPD. Anemia. Plan: Duoneb neb treatment-Just received. Lasix 80 mg IV x 1. Benadryl 12.5 mg PO x 1.
[2017-10-03 00:43] VITALS: PULSE 70; O2SAT 99
[2017-10-03] MEDS ORDERED: DiphenhydrAMINE 12.5 mg/5 ml LIQ UD (5 ml) PO STA (00:49)
[2017-10-03 07:15] LABS: HEMATOCRIT 31.6 % (42.0-52.0); MEAN CELL VOLUME 97.8 fl (80.0-105.0); MEAN CORPUSCULAR HEMOGLOBIN 29.7 pg (25.0-35.0); MEAN CORPUSCULAR HGB CONC 30.4 g/dl (31.0-37.0); MEAN PLATELET VOLUME 9.2 fl (7.0-11.0); RED CELL DISTRIBUTION WIDTH 19.2 % (11.5-14.5); WHITE BLOOD COUNT 3.9 10^3/ul (4.5-11.0)
[2017-10-03] MEDS ORDERED: Darbepoetin Alfa 100 mcg/ml Inj IVP ONE (08:00)
[2017-10-03] MEDS: Insulin Reg-MEDIUM-Coverage SC SCH ×2 (08:18→11:41)
[2017-10-03 09:37] LABS: ALB/GLOB RATIO 0.9 (1.1-1.8); ALKALINE PHOSPHATASE 234 U/L (38-126); ALT/SGPT 29 U/L (7-56); AST/SGOT 30 U/L (17-59); BILIRUBIN,TOTAL 0.9 mg/dL (0.2-1.3); BLOOD UREA NITROGEN 51 mg/dL (7-21); CALCIUM 8.7 mg/dL (8.4-10.5); CHLORIDE 80 mmol/L (98-107); GFR AFRICAN-AMERICAN > 60; GLUCOSE,RANDOM 106 mg/dL (70-110); TOTAL PROTEIN 7.2 g/dL (5.8-8.3)
[2017-10-03 09:50] LABS: CARBON DIOXIDE 48 mmol/L (21-33); POTASSIUM 3.4 mmol/L (3.6-5.0); SODIUM 137 mmol/L (132-148)
[2017-10-03] MEDS ORDERED: Potassium Chloride 20 mEq ER Tab PO ONE (09:55)
[2017-10-03] MEDS ORDERED: metOLazone 2.5 MG TAB PO SCH (10:00)
[2017-10-03] MEDS ORDERED: metOLazone 5 MG TAB PO SCH (10:00)
[2017-10-03] MEDS ORDERED: Primacor 1 mg/ml Inj (10 ml) IV ONE (10:15)
[2017-10-03] MEDS ORDERED: Milrinone 20mg/100ml D5W 100 ML IV SCH (10:15)
--- NOTE | 2017-10-03 11:50 | RAD ---
HISTORY: to see if CHF improved COMPARISON: 10/01/2017 FINDINGS: LUNGS: Diffuse hazy opacity at right george thorax and left perihilar. PLEURA: Moderate left pleural effusion and small right pleural effusion. No pneumothorax. CARDIOVASCULAR: AICD. Sternotomy wires. OSSEOUS STRUCTURES: No significant abnormalities. VISUALIZED UPPER ABDOMEN: Normal. OTHER FINDINGS: None. IMPRESSION: Bilateral pulmonary opacities common nonspecific. Bilateral pleural effusion, left greater than right. Possible pulmonary edema. Rule out pneumonia. In comparison to the prior examination, there is slightly increased opacity in the right george thorax.
[2017-10-03 13:09] VITALS: BP 139/64
--- NOTE | 2017-10-03 13:31 | PN ---
DATE: 10/03/2017 LOCATION: The patient in room 362, bed 2. REASON FOR CONSULTATION: CHF, coronary artery bypass surgery, mitral valve repair, and aortic valve replacement. SUBJECTIVE: The patient's consult was dictated yesterday for evaluation of above. Subjectively, the patient is feeling better today. He says his shortness of breath has improved. Denies chest pain or palpitations. PHYSICAL EXAMINATION: VITAL SIGNS: Blood pressure 129/72, respirations 20, pulse 72, temperature 98.5. HEENT: Head is normocephalic. Eyes, pupils are normal. Conjunctivae are slightly pale. NECK: JVP slightly elevated. LUNGS: Bilateral rales. CARDIOVASCULAR: S1 and S2. ABDOMEN: Soft. No tenderness. No organomegaly. EXTREMITIES: No edema present. No clubbing. No cyanosis. LABORATORY DATA: WBC 3.9, hemoglobin 9.6, hematocrit 31.6, platelets 129. Sodium 137, potassium 3.4, BUN 21, creatinine 1.2. AST and ALT normal. Total protein and albumin normal. DIAGNOSES: Cddih-rq-layxura congestive heart failure due to left ventricular systolic dysfunction, coronary artery disease, status post bypass surgery, ischemic cardiomyopathy, status post aortic valve replacement and mitral valve repair, status post automatic implantable cardioverter-defibrillator insertion, renal dysfunction, anemia, and hypokalemia. PLAN: I am going to increase Zaroxolyn dose to 5 mg daily, the patient was getting 2.5 mg daily to help . Also, we will put the patient on milrinone drip, the patient cannot be started on the drip on 3 hours, so we will transfer to 2-hour telemetry and we will start milrinone drip, and the patient is going to have repeat chest x-ray today. We will follow that and we will also repeat labs in the morning, SMA-7, magnesium, phosphorus, and the patient also getting Coreg 6.25 mg b.i.d., DuoNeb hand nebulizer therapy, aspirin 81 mg daily, metformin 500 mg b.i.d., potassium 40 mg has been given today and from tomorrow, the patient will be getting 40 mg daily, furosemide 60 mg IV q. 12 hours, Zaroxolyn increased to 5 mg daily plus milrinone drip to be started and the patient moved to 2 hours, and we will follow repeat labs in the morning and we will follow today. Repeat chest x-ray will be done. Tara Jose MD
[2017-10-03 13:55] VITALS: RESP 18; TEMP 97.3
--- NOTE | 2017-10-03 14:23 | PN ---
SUBJECTIVE: The patient was seen and examined on bedside on the remote telemetry gonzales. Overnight he was noted to be dyspneic requiring multiple nebulizer treatments. He was also evaluated by Dr. Angulo (house physician) and received additional doses of intravenous Lasix for his moderate respiratory distress secondary to CHF exacerbation. This morning on exam the patient is sitting up in bed with audible crackles and complaining of respiratory distress and is pending a nebulizer treatment. Otherwise, he denies fevers, chills, or rigors. OBJECTIVE: VITAL SIGNS: Temperature 98.5, pulse 70, blood pressure 129/72, respiratory rate 20, oxygen saturation 94% on 3 L nasal canula. GENERAL: Frail, elderly man, appearing stated age, sitting up in bed in moderate respiratory distress. HEENT: PERRL, EOMI, no scleral icterus. Mild conjunctivae pallors noted. NECK: No JVD. LUNGS: Bibasilar crackles with scattered rhonchi and wheeze. CARDIOVASCULAR: Regular rate and rhythm. Normal S1 and S2. Grade 2/6 ANGEL to RUSB. Grade 2/6 murmur to LLSB. AICD in place to left anterior chest wall. ABDOMEN: Normoactive bowel sounds. Soft, nontender, and nondistended. EXTREMITIES: 1+ lower extremity edema bilaterally. NEUROLOGIC: Awake, alert, and oriented x3. No focal motor deficit. LABORATORY DATA: WBC 3.9, hemoglobin 9.6, hematocrit 32 and platelets 129. Sodium 137, potassium 3.4, chloride 80, bicarb 48, BUN 51, creatinine 1.2 and glucose 106. ASSESSMENT: The patient is an 81 year old man with CAD s/p CABG x 2, ischemic cardiomyopathy s/p AICD, history of AVR/MVR and hypertension who presented with a several day history of worsening lower extremity edema, orthopnea and exertional dyspnea and who was admitted to the telemetry gonzales for management of acute on chronic systolic heart failure exacerbation. PLAN: 1. Acute on chronic systolic heart failure exacerbation. Continue with Lasix 60 mg IV q.12 hours and Zaroxolyn 5 mg p.o. daily. Input from Dr. Jose noted and greatly appreciated and arrangements are being made to transfer the patient to the telemetry gonzales to initiate milrinone infusion. 2. Ischemic cardiomyopathy s/p AICD. Continue Coreg 6.25 mg p.o. b.i.d. and telemetry monitoring. 3. CAD s/p CABG x 2. Continue Coreg 6.25 mg p.o. b.i.d., aspirin 81 mg p.o. daily and Lipitor 20 mg p.o. daily. 4. NIDDM. Continue fingerstick monitoring q. a.c. and at bedtime and Metformin 500 mg p.o. b.i.d. 5. Hypertension. Blood pressure controlled. Continue current medications. 6. Iron-deficiency anemia. Labs demonstrates stable H/H with hemoglobin as the patient's baseline. Continue to monitor CBC daily. 7. Anxiety. We will start Xanax 0.25 mg p.o. t.i.d. as needed. 8. Insomnia. Continue Ambien 5 mg p.o. at bedtime. 9. Prophylaxis. GI prophylaxis is not indicated as the patient is eating. Continue with Venodyne for DVT prophylaxis. CODE STATUS: FULL CODE. Ronnie Gamez MD MTDD
[2017-10-03 17:20] LABS: BASO # 0.04 K/mm3 (0.0-2.0); BASO % 0.9 % (0.0-3.0); EOS % 0.9 % (1.5-5.0); GRAN # 2.54 (1.4-6.5); GRAN % 55.5 % (50.0-68.0); HEMATOCRIT 24.6 % (42.0-52.0); LYMPH # 1.8 (1.2-3.4); LYMPH % 39.4 % (22.0-35.0); MEAN CELL VOLUME 101.2 fl (80.0-105.0); MEAN CORPUSCULAR HEMOGLOBIN 30.9 pg (25.0-35.0); MEAN CORPUSCULAR HGB CONC 30.5 g/dl (31.0-37.0); MONO # 0.2 (0.1-0.6); MONO % 3.3 % (1.0-6.0); PLATELET COUNT 98 10^3/uL (120.0-450.0); RED CELL DISTRIBUTION WIDTH 20.3 % (11.5-14.5); WHITE BLOOD COUNT 4.6 10^3/ul (4.5-11.0)
--- NOTE | 2017-10-03 18:08 | CP.PCM.PRO ---
Pronouncement of Note - Clinical Findings Physical Exam: No Response Verbal/Painful Stimuli, Absent Peripheral Pulses{ Carotid & Femoral}, Absent Heart & Breath Sounds, No Pupillary Light Reflex, No Corneal Reflex, Pupils Fixed & Dilated, Absence of Vital Signs - Pronouncement Time Time of Pronouncement of : 17:15 - Notifications Pronouncement Notifications: Family Notified Hospice Aide Notified: No - Autopsy Autopsy Requested: No - [place] [id number]
--- NOTE | 2017-10-03 18:18 | CP.PCM.PN ---
Subjective - Date & Time of Evaluation Date of Evaluation: 10/03/17 Time of Evaluation: 17:15 - Subjective Subjective: CODE BLUE: 16:45 81 M with a PMHx of CAD s/p CABG x 2, Ischemic cardiomyopathy s/p AICD and AVR, CHF,COPD, HTN, DM, chronic anemia admitted for worsening bilateral lower extremity edema, orthopnea, and exertional dyspnea. A[employer]ICULTURE SPECIALIST called at 16:40 for agonal breathing and then converted to Code Blue at 16:45. Patient was found to be unresponsive and pulseless when nurse examined patient at which time Code blue was called. PMD Dr. Shetty and family were notified. CPR was started 16: 45. Blood sugar was 130, CBC, CMP, Troponin, VBG shock panel were drawn. No BP, absent pulse unavailable at onset. Four total epinephrines given, 1 Sodium Bicarb amp given. After 30 minutes of CPR and ACLS protocol patient was still found to be PEA. At that time family was available at bedside. All parties agreeable to stop resuscitative measures. Patient was pronounced at 17: 15. PMD made aware. Objective - Vital Signs/Intake and Output Vital Signs (last 24 hours): Temp Pulse Resp BP Pulse Ox 97.3 F L 70 18 139/64 99 10/03/17 12:00 10/03/17 13:03 10/03/17 12:00 10/03/17 13:03 10/03/17 00:00 Intake and Output: 10/03/17 10/03/17 06:59 18:59 Intake Total 600 Output Total 900 Balance -300 - Medications Medications: Current Medications Albuterol/Ipratropium (Duoneb 3 Mg/0.5 Mg (3 Ml) Ud) 3 ml IH Q2H PRN PRN Reason: Shortness of Breath Last Admin: 10/03/17 10:03 Dose: 3 ml Albuterol/Ipratropium (Duoneb 3 Mg/0.5 Mg (3 Ml) Ud) 3 ml IH [id number] [facility] Last Admin: 10/03/17 14:52 Dose: 3 ml Aspirin (Ecotrin) 81 mg PO DAILY [facility] Last Admin: 10/03/17 09:29 Dose: 81 mg Carvedilol (Coreg) 6.25 mg PO BID [facility] Last Admin: 10/03/17 09:26 Dose: 6.25 mg Furosemide (Lasix) 60 mg IVP Q12H [facility] Last Admin: 10/03/17 06:26 Dose: 60 mg Milrinone Lactate/Dextrose (Primacor 20mg/100ml D5w) 100 mls @ 8.93 mls/hr IV .[id number] [facility] PRN Reason: 0.375 MCG/KG/MIN Last Admin: 10/03/17 13:03 Dose: 8.93 mls/hr Insulin Human Regular (Humulin R Med) 0 units SC ACHS CLARA PRN Reason: Protocol Last Admin: 10/03/17 11:41 Dose: Not Given Lorazepam (Ativan) 1 mg IVP Q6H PRN; Protocol PRN Reason: Anxiety Metformin HCl (Glucophage) 500 mg PO BID [facility] Last Admin: 10/03/17 09:29 Dose: 500 mg Metolazone (Zaroxolyn) 5 mg PO DAILY [facility] Last Admin: 10/03/17 09:44 Dose: 5 mg Potassium Chloride (K-Dur 20 Meq Er Tab) 40 meq PO DAILY [facility] Zolpidem Tartrate (Ambien) 5 mg PO HS PRN; Protocol PRN Reason: Insomnia Last Admin: 10/02/17 21:16 Dose: 5 mg - Labs Labs: 10/03/17 17:05 10/03/17 06:55 PT 13.6 SECONDS (9.4-12.5) H 10/01/17 17:03 INR 1.24 (0.93-1.08) H 10/01/17 17:03 APTT 35.1 Seconds (25.1-36.5) 10/01/17 17:03 - Eye Exam Eye Exam: absent: EOMI, PERRL Pupil Exam: absent: PERRL Additional comments: Absent corneal reflex, Pupils fixed and unresponsive - Respiratory Exam Respiratory Exam: absent: NORMAL BREATHING PATTERN (Absent breath sounds bilaterally ) - Cardiovascular Exam Cardiovascular Exam: absent: REGULAR RHYTHM (PEA) Additional comments: Absent pulses
--- NOTE | 2017-10-04 08:59 | CON ---
LOCATION: The patient is in room 362, bed 2. REASON FOR CONSULTATION: Congestive heart failure, coronary artery disease, coronary artery bypass surgery, status post AVR and mitral valve repair. HISTORY OF PRESENT ILLNESS: An 81-year-old male who is known to have coronary artery disease, status post bypass surgery, ischemic cardiomyopathy, status post RI, history of aortic valve repair placement, bioprosthetic valve and repair of mitral valve, AICD insertion, hypertension, diabetes, was admitted to the Emergency Room because the patient was having shortness of breath since last several days along with orthopnea as well as exertional dyspnea and also swelling of the legs. The patient denies any chest pain or palpitation. The patient is also known to have renal dysfunction. PAST MEDICAL HISTORY: Positive for coronary artery disease, status post coronary artery bypass surgery, history of RI, bioprosthetic aortic valve replacement, repair of mitral valve with ring placement, ischemic cardiomyopathy, status post AICD insertion, sleep apnea, anemia, diabetes, CHF, renal dysfunction. PREVIOUS CARDIAC WORKUP: The patient had stress test on 07/29/2016, which showed fixed defect, ejection fraction 51%. Echo on 08/05/2017 showed normal size LV, [id number] LV hypertrophy, LV systolic function decreased with ejection fraction of 40%, moderate tricuspid regurg, RVSP 78 mmHg suggestive of severe pulmonary hypertension. PERSONAL HISTORY: The patient used to smoke until several years ago, he stopped, used to smoke 30 pack a year. He used to drink socially. ALLERGIES: THE PATIENT DENIES ANY ALLERGIES. MEDICATIONS AT HOME: Coreg 6.25 p.o. b.i.d., Lasix 40 b.i.d., Lipitor 20 daily, Pepcid 20 b.i.d., metformin 500 mg p.o. daily, Valium 5 mg at bedtime, aspirin 81 mg p.o. daily. PHYSICAL EXAMINATION VITAL SIGNS: Blood pressure 112/56, respirations 18, pulse 70, temperature 98.1. HEENT: Head is normocephalic. Eyes: Pupils normal. Conjunctivae pale. NECK: JVP slightly elevated. LUNGS: Bilateral rales. CARDIOVASCULAR: S1 and S2, systolic murmur. No rub. ABDOMEN: Soft and nontender. No organomegaly. EXTREMITIES: Bilateral edema on the legs. LABORATORY DATA: WBC 3.1, hemoglobin 8.8, hematocrit 28.6, and platelets 138. Sodium 137, potassium 2.8, BUN 50, creatinine 1.3, random sugar 150 and another random sugar 112. AST and ALT normal, alkaline phosphatase 220. Troponin x2 is 0.05. NT-pro brain natriuretic peptide 7330. Total protein 6.6, albumin 3.3. Chest x-ray consistent of congestive changes, small pleural effusion. DIAGNOSES: Congestive heart failure, pleural effusion, renal dysfunction, coronary artery disease, history of coronary artery bypass surgery, status post bioprosthetic aortic valve replacement, status post mitral valve repair with ring placement, status post AICD insertion, history of anemia, diabetes, hypertension, renal dysfunction, bioprosthetic aortic valve with pericardial valve and hypokalemia. PLAN: Continue carvedilol 6.25 b.i.d., DuoNeb nebulizer therapy, aspirin 81 mg p.o. daily, metformin 500 mg b.i.d., furosemide 60 mg IV q.12 hours, multiple stat Lasix have been given, potassium 40 mEq has been given, Zaroxolyn 2.5 mg p.o. daily. The patient also received IV potassium. We will repeat SMA-7 in the morning and will continue present therapy and monitor intake and output and will follow. Tara Jose MD
[2017-10-04] MEDS ORDERED: Potassium Chloride 20 mEq ER Tab PO SCH (10:00)
--- NOTE | 2017-10-05 09:07 | DS ---
ADMITTING DIAGNOSIS: [id number] systolic heart failure exacerbation. DISCHARGE DIAGNOSIS: [id number] systolic heart failure exacerbation. SECONDARY DIAGNOSES: Ischemic cardiomyopathy s/p AICD, CAD s/p CABG x 2, hypertension, T2DM, iron- deficiency anemia, MANAN history of AVR/MVR and anxiety. CONSULTATIONS: Dr. Leach (Cardiology). HISTORY OF PRESENT ILLNESS: The patient is an 81 year old man with a past medical history of CAD s/p CABG x 2, ischemic cardiomyopathy s/p AICD and history of AVR/MVR who presented to [facility] ED for evaluation of a 3 day history of worsening lower extremity edema, orthopnea and exertional dyspnea. The patient has had multiple admissions in the past for CHF exacerbation due to medication noncompliance and had signed out AMA previously despite inadequate diuresis. Prior to this admission, the patient reported progressively worsening pedal edema and dyspnea as well as development of cough intermittently productive of clear sputum. Given his worsening symptoms, he opted for ED evaluation. Upon arrival to ED, he was noted to be tachypneic with moderate respiratory distress as well as hypoxic. He received Lasix intravenously in the ED and was subsequently admitted to the remote telemetry [facility] for continued management of [id number] systolic heart failure exacerbation. HOSPITAL COURSE: Upon admission to the hospital [facility], he was maintained on Lasix 60 mg IV q. 12 hours and Zaroxolyn 2.5 mg p.o. daily. He was also receiving nebulizer treatments every 4 hours. Over the following 24 hours, the patient was noted to be quite symptomatic despite aggressive diuresis, and arrangements were made with Dr. Jose of Cardiology for patient transferred to the telemetry gonzales to initiate a milrinone infusion. Later during the day after transfer to the telemetry gonz[facility], the patient was noted to be agitated and was pulling on his IV lines and medical devices. Several hours later, he was noted to develop significant respiratory distress and a rapid response was called. Shortly thereafter, the patient was noted to be pulseless and a code blue was called. Despite valiant efforts by the house staff after 30 minutes of CPR and ACLS protocol, the patient did not have return of spontaneous circulation and was pronounced on 10/03/2017 at 5:15 p.m. DISPOSITION: Patient . Ronnie Gamez MD MONICA
== END 2017-10-03 16:15 | DRG 293 ==
LOC: ED 15:41 → ERH 19:37 → 3RNO 21:16 → 3RSO 10-03 12:09
PROVIDERS: ADMIT Student in an Organized Health Care Education/Training Program; ATTEND Student in an Organized Health Care Education/Training Program
PROC: 3E0F7GC Introduction of Other Therapeutic Substance into Respiratory Tract, Via Natural or Artificial Opening (ICD-10-PCS; principal; 2017-10-02)
DX: I11.0 Hypertensive heart disease with heart failure (principal); I50.23 Acute on chronic systolic (congestive) heart failure; J44.9 Chronic obstructive pulmonary disease, unspecified; E11.9 Type 2 diabetes mellitus without complications; I36.1 Nonrheumatic tricuspid (valve) insufficiency; D50.9 Iron deficiency anemia, unspecified; E87.6 Hypokalemia; D64.9 Anemia, unspecified; I25.5 Ischemic cardiomyopathy; I25.10 Atherosclerotic heart disease of native coronary artery without angina pectoris; G47.33 Obstructive sleep apnea (adult) (pediatric); G47.00 Insomnia, unspecified; F41.9 Anxiety disorder, unspecified; R09.02 Hypoxemia; N28.9 Disorder of kidney and ureter, unspecified; I25.2 Old myocardial infarction; Z91.14 Patient's other noncompliance with medication regimen; Z79.84 Long term (current) use of oral hypoglycemic drugs; Z79.82 Long term (current) use of aspirin; Z79.899 Other long term (current) drug therapy; Z95.1 Presence of aortocoronary bypass graft; Z95.2 Presence of prosthetic heart valve; Z95.810 Presence of automatic (implantable) cardiac defibrillator; Z87.891 Personal history of nicotine dependence